=== PATIENT | female | born 1975 | race Hispanic/Latino ===

== ENCOUNTER 2020-10-28 13:25 | Emergency (ER) | payer OTHER ==
--- OUTSIDE RECORDS SUMMARY | 2020-10-28 13:31 | XMS REPORT | Continuity of Care Document ---
:1975 Author Organization [facility] t Address [address] [place] [address] Care Team Providers Name Role Phone Negin SHAH Primary Care Physician Albert SHAH Attending Clinician Jordy Camejo MDh Attending Clinician Bogdan SHAH LRebecca Attending Clinician Layo SHAH SRebecca Attending Clinician Andree Attending Clinician Unavailable Gustavo GO Attending Clinician Unavailable Mimi SHAH Attending Clinician Andrew BOWERS Attending Clinician Unavailable Josefina SHAH Attending Clinician José Miguel SHAH PRebecca Attending Clinician Susy Ruiz Attending Clinician Charles Arvizu MD Attending Clinician Carole Melendez MD Attending Clinician Unavailable Magaly Albrecht Attending Clinician Unavailable Annabel RN Attending Clinician Unavailable Emerson Esquivel MD Attending Clinician Oxana Wharton MD Attending Clinician Steven SHAH TRebecca Attending Clinician Harish Macedo MD Attending Clinician Hayley Lao MD Attending Clinician JESSICA Attending Clinician Unavailable DONALD LUZ Attending Clinician Unavailable GABRIELLA BERMUDEZ Attending Clinician Unavailable BASHIR Admitting Clinician Unavailable JOSEFINA Admitting Clinician Unavailable STEVEN Admitting Clinician Unavailable ZHENG Admitting Clinician Unavailable GABRIELLA BERMUDEZ Admitting Clinician Unavailable Payers Payer Name Policy Type Policy Effective Expiration Source Number Date Date [facility] [id number] 2019 [place] CHOICE/CHOICE 00:00:00 [facility] [id number] 2019-Prese ntHMO/PPO MEDICAREMEDICARE PART A [id number] 2018 [place] AND 7 00:00:00 [facility] [id number]/06/[place] [id number] 2018 [facility] [id number] 2017-Pre 7 00:00:00 - Medical sentMedicare Center UNITED HEALTHCARE - MGD [id number] 2018 [facility] CAREUNITED HMO POS 00:00:00 - [facility] [id number] 2018- PresentHMO/POS COVID VACCINE ADMIN / [id number] 2020-07-03 [facility] TESTINGCOVID VACCINE 00:00:00 - [place] / Center [id number]/07/2020- Present Problems Condition Condition Condition Status Onset Resolution Last Treating Co mments Source Name Details Category Date Date Treatment Clinician Date Anemia Anemia Disease Active Gerry 5-27 [facility]i 00:00: st 00 ESRD (end ESRD (end Disease Active Cindi ston stage stage 4-23 [facility]i renal renal 00:00: st disease) disease) 00 Diabetic Diabetic Disease Active 2019-06 [place] gastropare gastropare 2-31 Me thodi sis sis 00:00: st 00 Abdominal Abdominal Disease Active 2019-06 Cindi ston pain pain 2-30 Methodi 00:00: st 00 PD PD Disease Active 2019-06 Garrett catheter catheter 2-29 Method i dysfunctio dysfunctio 00:00: st n, initial n, initial 00 encounter encounter UTI due to UTI due to Disease Active 2019-06 zhou Klebsiella Klebsiella 2- Me [facility] species species 00:00: st Uncontroll Uncontroll Disease Active 2019-06 H [place] ed type 1 ed type 1 2-23 Meth naomi diabetes diabetes 00:00: st mellitus mellitus 00 with with diabetic diabetic nephropath nephropath y, with y, with long-term long-term current current use of use of insulin insulin Acute Acute Disease Active 2019-06 [place] cystitis cystitis 2-22 Method i without without 00:00: st hematuria hematuria 00 Insulin Insulin Disease Active [place] pump pump 06-28 [facility] status status 00:00: st 00 Vitamin D Vitamin D Disease Active Cindi farahn deficiency deficiency 06-28 Me odi 00:00: st 00 Obesity Obesity Disease Active [facility] (BMI (BMI 1-28 Methodi 30.0-34.9) 30.0-34.9) 00:00: st 00 ESRD on ESRD on Disease Active [place] peritoneal peritoneal 06-28 [place] dialysis dialysis 00:00: st 00 Pyelonephr Pyelonephr Disease Active H zhou itis itis 1-27 Methodi 00:00: st 00 Peritoniti Peritoniti Disease Active 2018-06 H zhou s s 1-03 Method[facility] 00:00: st 00 Glaucoma Glaucoma Disease Active Overview: [facility] 8-26 [facility] 00:00: g of this 00 note might be different from the original. Added automatic ally from request for surgery [id number] Vitreous Vitreous Disease Active Overview: [facility] hemorrhage hemorrhage 8-19 [facility] , right , right 00:00: g of this eye eye 00 note might be different from the original. Added automatic ally from request for surgery [id number] Anemia of Anemia of Disease Active Cnidi ston chronic chronic 4-30 [facility] renal renal 00:00: st failure, failure, 00 stage 5 stage 5 Acute Acute Disease Active [place] diastolic diastolic 4-27 Meth naomi (congestiv (congestiv 00:00: st e) heart e) heart 00 failure failure Essential Essential Disease Active Cindi kaufman hypertensi hypertensi 4-27 Me thodi on on 00:00: st 00 Controlled Controlled Disease Active [place] type 1 type 1 4-27 [facility] diabetes diabetes 00:00: st mellitus mellitus 00 with with diabetic diabetic nephropath nephropath y, with y, with long-term long-term current current use of use of insulin insulin Localized Localized Disease Active Cindi ston edema due edema due 4-25 Meth naomi to fluid to fluid 00:00: st overload overload 00 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-14 He alth of right of right 00:00: eye, eye, 00 severe severe stage stage Type 2 Type 2 Disease Active Melendez diabetes diabetes 3-14 Health mellitus mellitus 00:00: with with 00 ophthalmic ophthalmic complicati complicati on on Patient on Patient on Disease Active H arris peritoneal peritoneal 3-14 [facility] dialysis dialysis 00:00: 00 Lower Lower Disease Active [place] abdominal abdominal 1-18 Meth naomi pain pain 00:00: st 00 Shortness Shortness Disease Active 2017-06 Cindi ston of breath of breath 2-26 Meth naomi 00:00: st 00 Pre-transp Pre-transp Disease Active 2017-[address] lant lant 1-27 [facility] evaluation [facility]: Me dical for for 00 Center chronic chronic kidney kidney disease disease HTN HTN Disease Active [facility] (hypertens (hypertens 02-17 [facility] - ion) ion) 00:00: Medical 00 Center Diabetes Diabetes Disease [facility] mellitus mellitus 02-17 [facility] Anemia Anemia Disease Active [facility] 02[facility]17 [facility] Center ESRD (end ESRD (end Disease Active [facility] stage stage 9-18 [facility] renal renal 00:00: Medical disease) disease) 00 Center SBP SBP Disease Resolve 2018-062020-09-29 2020-09-29 [place] (spontaneo (spontaneo d 0-15 00:00:00 12:44:08 Methodi us us 00:00: st bacterial bacterial 00 peritoniti peritoniti s) s) Allergies, Adverse Reactions, Alerts This patient has no known allergies or adverse reactions. Family History Family Member Diagnosis Comments Start Date Stop Date Source Natural brother Diabetes type I [facility] Natural brother Kidney failure [facility] S t [facility] Natural father Diabetes [facility] Natural father Kidney failure [facility] Natural father Diabetes [facility] Natural father Heart disease Gerry Nicholson Natural father Hypertension Gerry Nicholson Natural mother Diabetes [facility] Natural son No Known Problem [facility] Social History Social Habit Start Date Stop Date Quantity Comments Source History SDOH [place] [facility] Alcohol Std Drinks History SDOH [place] Alcohol Binge Exposure to Not sure [place] Metho dist SARS-CoV-2 (event) Tobacco use and 2020-10-25 2020-10-25 Never used Garrett John ethodist exposure 00:00:00 00:00:00 Alcohol intake 2020-10-25 2020-10-25 Current [place] thodist 00:00:00 00:00:00 non-drinker of alcohol (finding) History SDOH 2020-05-30 2020-05-30 1 [place] [facility] Alcohol Frequency 00:00:00 00:00:00 [birth year] Gerry Lopez ethodist 00:00:00 00:00:00 Smoking Status Start Date Stop Date Source Never smoker [facility] Kenis t Medications Ordered Filled Start Stop Current Ordering Indication Dosage Frequency Signature Comments Components Source Medication Medication Date Date Medication? Clinician (SIG) Name Name ALPRAZolam Yes .25mg QD Take 0.25 [place] (XANAX) 5-29 mg by Methodi 0.25 MG 15:19: mouth st tablet 52 nightly as needed for anxiety. calcium Yes 1334mg Q.[id number] Take 1,334 Garrett acetate,simin 5-29 [id number] mg by M ethodi sphat bind, 15:19: 3D mouth 3 st (PHOSLO) 52 (three) 667 mg times a capsule day with meals. calcium Yes 667mg Take 667 [place] acetate,simin 5-29 mg by Methodi sphat bind, 15:19: mouth with st (PHOSLO) 52 snacks. 667 mg capsule traMADoL Yes acute pain 50mg Q6H Take 50 mg Garrett (ULTRAM) 50 5-29 by mouth Meth naomi mg tablet 15:19: every 6 st 52 (six) hours as needed for moderate pain .acute pain. (per [place] [facility], last filled 09/29/20, quantity: 14, day supply: 7) LORAZepam 0 Yes .5mg Q8H Take 0.5 [place] (ATIVAN) 5-29 mg by Methodi 0.5 MG 15:19: mouth st tablet 52 every 8 (eight) hours as needed for anxiety. Days of Dialysis (per [place] [facility], last filled 09/29/20, quantity: 20, day supply: 7) polyethylen Yes 17g QD Take 17 g [place] e glycol 5-29 by mouth Methodi (MIRALAX) 15:19: daily. st 17 gram 52 packet calcitrioL Yes .5ug QD Take 0.5 Cindi ston (ROCALTROL) 5-29 mcg by Method i 0.5 MCG 15:19: mouth st capsule 52 daily. clonIDINE Yes .1mg Take 0.1 [place] (CATAPRES) 5-29 mg by Methodi 0.1 MG 15:19: mouth as st tablet 52 needed (ONLY for SBP > 170). ondansetron 0 Yes 4mg Q8H Take 4 mg [place] ODT 5-29 by mouth Methodi (ZOFRAN-ODT 15:19: every 8 st ) 4 MG 52 (eight) disintegrat hours as ing tablet needed for nausea or vomiting. folic Yes 1{tbl} QD Take 1 Garrett acid/vit B 5-29 tablet by Meth naomi complex and 15:19: mouth st C 52 every (DIALYVITE morning. 800 ORAL) gentamicin Yes 1{appli QD Apply 1 [place] (GARAMYCIN) 5-29 cation} applicatio Methodi 0.1 % cream 15:19: n st 52 topically daily. For catheter insulin Yes Inject Garrett lispro 5-29 under the Methodi (INSULIN 15:19: skin st PUMP) 100 52 continuous unit/mL ly. Humalog insulin (Avogytronic )Active Insulin PUMP docusate Yes 100mg QD Take 100 [place] sodium 5-29 mg by Methodi (COLACE) 15:19: mouth st 100 MG 52 daily. capsule ergocalcife Yes [id number] Q7D Take [place] rol 5-29 50,000 [facility] (VITAMIN 15:19: Units by st D2) 50,000 52 mouth once unit a week. capsule Take on Mondays gabapentin Yes 100mg QD Take 100 [place] (NEURONTIN) 5-29 mg by Methodi 100 mg 15:19: mouth st capsule 52 nightly as needed (for pain). NIFEdipine 2020- No 30mg Q.5D Take 30 mg Garrett XL 09-29 by mouth 2 [facility]i (PROCARDIA 14:39: 00:00 (two) st XL) 30 MG 00 :00 times a 24 hr day as tablet needed (ONLY if SBP >150-160mm Hg). torsemide 2020- No 100mg QD Take 100 [place] (DEMADEX) 09-29 mg by Methodi 100 MG 14:39: 00:[address] tablet 00 :00 every morning. ondansetron 2020- No 4mg Q8H Take 1 Cindi ston ODT 09-2928 tablet (4 [facility] (ZOFRAN-ODT 00:00: 00:00 mg total) st ) 4 MG 00 :00 by mouth disintegrat every 8 ing tablet (eight) hours as needed for nausea or vomiting for up to 30 days. traMADoL 2020- acute pain 25mg Q6H Take 0.5 Garrett (ULTRAM) 50 09-29 tablets Meth naomi mg tablet 00:00: 23:59 ([address] 00 :00 total) by mouth every 6 (six) hours as needed for severe pain for up to 10 days .acute pain. LORAZepam 2020- No .5mg Q8H Take 1 [place] (Ativan) 09-29 tablet Methodi 0.5 MG 00:00: 23:59 (0.[address] tablet 00 :00 total) by mouth every 8 (eight) hours as needed for anxiety for up to 10 days. minocycline 2020- No 100mg Q12H Take 1 [place] (MINOCIN) 5-01 05-07 capsule Method i 100 MG 00:00: 23:59 ([address] capsule 00 :00 total) by mouth every 12 (twelve) hours for 6 days. rOPINIRole No .25mg Q.[id number] Take 1 Garrett (Requip) 09-29 [id number] tablet Me thodi 0.25 MG 00:00: 00:00 3D (0.[address] tablet 00 :00 total) by mouth 3 (three) times a day for 30 days. latanoprost 2020- No 1[drp] QD Administer Garrett (XALATAN) 09-19 1 drop to Meth naomi 0.005 % 11:22: 00:[address] ophthalmic 05 :00 eye solution nightly. fluticasone No 100ug QD 2 sprays [place] propionate 06-07 (100 mcg Meth naomi (FLONASE) 00:00: 23:59 total) by st 50 00 :00 Each Nare mcg/actuati route on nasal daily for spray 30 days. pantoprazol No 40mg QD Take 1 Cindi ston e 06-07 tablet (40 Methodi (PROTONIX) 00:00: 23:59 mg total) s t 40 MG EC 00 :00 by mouth tablet daily for 30 days. polyethylen No 17g Q.5D Take 17 g Garrett e glycol 06-06 by mouth 2 Meth naomi (MIRALAX) 16:05: 00:00 (two) st 17 gram 13 :00 times a packet day. metoclopram 2020- No 10mg Q.5D Take 10 mg Garrett jhonny 06-06 by mouth 2 Methodi (REGLAN) 10 16:05: 00:00 (two) st MG tablet 13 :00 times a day. metoclopram 2020- No 10mg Q.[id number] Take 1 Garrett jhonny 06-06 [id number] tablet (10 Me thodi (REGLAN) 10 00:00: 23:59 3D mg total) st MG tablet 00 :00 by mouth 3 (three) times a day before meals for 30 days. polyethylen No 17g Q24H Take 17 g Garrett e glycol 06-06 by mouth Method i (MIRALAX) 00:00: 23:[address] 17 gram 00 :00 needed for packet constipati on for up to 30 days. hydrocortis 2020- No Q.5D Apply [place] one 0.5 % 06-06 topically Meth naomi cream 00:00: 23:59 2 (two) st 00 :00 times a day for 30 days. simethicone No 80mg Q6H Chew 1 Cindi ston (MYLICON) 06-06 tablet (80 Met hodi 80 MG 00:00: 23:59 mg total) st chewable 00 :00 every 6 tablet (six) hours as needed for flatulence for up to 30 days. ferric 2019-06 No 210mg Take 210 [place] citrate 2-30 12-30 mg by Methodi (Auryxia) 10:41: 00:00 mouth with s t 210 mg iron 44 :00 snacks. tablet ferric 2019-06 No 420mg Q.[id number] Take 420 Garrett citrate 2-30 12-30 [id number] mg by Meth naomi (AURYXIA) 10:41: 00:[address] 210 mg iron 37 :00 (three) tablet times a day with meals. ciprofloxac 2019-06 500mg QD Take 500 Garrtet in (CIPRO) 2- 01-06 mg by Methodi 500 MG 00:00: 00:[address] tablet 00 :00 daily. For 6 days Starting 05/26/20-0 06/01/20 ciprofloxac 2019-06 No 500mg QD Take 1 [place] in (CIPRO) 2-26 12-30 tablet Method i 500 MG 00:00: 00:00 ([address] tablet 00 :00 total) by mouth daily for 6 days. bimatoprost 2019-06 1[drp] QD Administer Garrett (LUMIGAN) 2-25 12-25 1 drop to Meth naomi 0.01 % 13:47: 00:[address] ophthalmic 02 :00 nightly. drops dorzolamide 2020-1 2020- No 1[drp] Q.5D Administer Garrett (TRUSOPT) 2 07-26 1 drop to Me thodi % 13:47: 00:[address] ophthalmic 02 :00 2 (two) solution times a day. polyethylen 2019- 2020- No 17g Q24H Take 17 g Garrett e glycol 07-26 by mouth Method i (MIRALAX) 12:04: 00:[address] 17 gram 46 :00 needed for packet constipati on. atropine 1 2019-06 2020- No 1[drp] Q.5D Administer Garrett % 07-26- 1 drop Methodi ophthalmic 12:04: 00:[address] solution 44 :00 left eye 2 (two) times a day as needed (for pain). brimonidine 2019-06 2020- No 1[drp] Q.[id number] Administer Garrett (ALPHAGAN) 07-26- [id number] 1 drop to Methodi 0.15 % 12:04: 00:[address] ophthalmic 44 :00 eye 3 solution (three) times a day. dorzolamide 2019-06 2020- No 1[drp] Q.5D Administer Garrett -timolol, 07-26 1 drop to Meth naomi PF, 2-0.5 % 12:04: 00:[address] drops 44 :00 eye 2 (two) times a day. latanoprost 2019-06- No 1[drp] QD Administer Garrett (XALATAN) 07-26- 1 drop to Meth naomi 0.005 % 12:04: 00:[address] ophthalmic 44 :00 eye solution nightly. prednisoLON 2019- 2020- No 1[drp] Q.25D Administer Garrett E acetate 07-26- 1 drop Methodi (PRED 12:04: 00:[address] FORTE) 1 % 44 :00 left eye 4 ophthalmic (four) suspension times a day as needed (for pain). calcium 2019- 2020- No 1334mg Q.[id number] Take 1,334 Garrett acetate 07-26- [id number] mg by Meth naomi (PHOSLO) 12:04: 00:[address] 667 mg 44 :00 (three) capsule times a day with meals. atropine 1 2019-06- No 1[drp] Q.5D Administer Garrett % 07-26 1 drop Methodi ophthalmic 00:00: 23:[address] solution 00 :00 left eye 2 (two) times a day as needed (for pain) for up to 30 days. brimonidine 2019-06 No 1[drp] Q.[id number] Administer Garrett (ALPHAGAN) 07-26 [id number] 1 drop to Methodi 0.15 % 00:00: 23:[address] ophthalmic 00 :00 eye 3 solution (three) times a day for 30 days. dorzolamide 2019-06 No 1[drp] Q.5D Administer Garrett -timolol, 07-26 1 drop to Meth naomi PF, 2-0.5 % 00:00: 23:[address] drops 00 :00 eye 2 (two) times a day for 30 days. prednisoLON 2019-06 No 1[drp] Q.25D Administer Garrett E acetate 07-26 1 drop Methodi (PRED 00:00: 23:[address] FORTE) 1 % 00 :00 left eye 4 ophthalmic (four) suspension times a day as needed (for pain) for up to 30 days. calcium 2019-06- No 1334mg Q.[id number] Take 2 Garrett acetate,simin 07-26- [id number] capsules Methodi sphat bind, 00:00: 00:00 3D (1,[address] (PHOSLO) 00 :00 total) by 667 mg mouth 3 capsule (three) times a day with meals for 30 days. latanoprost 2019-06- No 1[drp] QD Administer Garrett (XALATAN) 07-26- 1 drop to Meth naomi 0.005 % 00:00: 00:[address] ophthalmic 00 :00 eye solution nightly for 30 days. polyethylen 2019-06 2020- No 17g QD Take 17 g Garrett e glycol 07-26-30 by mouth Method i (MIRALAX) 00:00: 00:[address] 17 gram 00 :00 packet torsemide 2018-06 Yes 100mg QD Take 100 [place] ris 100 mg 0-10 mg by Health tablet 15:26: mouth 06 daily. calcitriol 2019- Yes .25ug QD Take 0.25 H [facility]is (ROCALTROL) 0-10 mcg by Health 0.25 mcg 15:26: mouth capsule 06 daily. bimatoprost 2018-06 Yes Neovascular 1[drp] Instill 1 [place] (LUMIGAN) 0-10 glaucoma, Drop in He alth 0.01 % 00:00: severe right eye ophthalmic 00 stage, at bedtime solution right nightly. brimonidine 2018-06 Yes Neovascular 1[drp] Instill 1 [place] (ALPHAGAN 0-10 glaucoma, Drop in He alth P) 0.15 % 00:00: severe right eye ophthalmic 00 stage, 3 times solution right daily. dorzolamide 2018-06 Yes Neovascular 1[drp] Q.5D Instill 1 [place] -timolol 0-10 glaucoma, Drop in Hea lth (COSOPT) 00:00: severe right eye 22.3-6.8 00 stage, 2 times mg/mL right daily. ophthalmic solution atropine Yes Neovascular 1[drp] Instill 1 [place] (ISOPTO 8-26 glaucoma, Drop in Heal th ATROPINE) 1 00:00: severe left eye 2 % 00 stage, times ophthalmic right daily as solution needed for Pain. prednisoLON Yes Neovascular 1[drp] Instill 1 [place] E acetate 8-26 glaucoma, Drop in He alth (PRED 00:00: severe left eye 4 FORTE) 1 % 00 stage, times ophthalmic right daily as suspension needed for Pain. latanoprost Yes Neovascular 1[drp] Instill 1 [place] (XALATAN) 8-19 glaucoma, Drop in He alth 0.005 % 00:00: severe right eye ophthalmic 00 stage, at bedtime solution right nightly. brimonidine Yes Neovascular 1[drp] Instill 1 [place] -timolol 7-29 glaucoma, Drop in Hea lth (COMBIGAN) 00:00: severe each eye 0.2-0.5 % 00 stage, every 12 ophthalmic right hours. solution brinzolamid Yes Neovascular 1[drp] Q.5D Instill 1 Al [place] (AZOPT) 1 7-29 glaucoma, Drop in Health % 00:00: severe right eye ophthalmic 00 stage, 2 times suspension right daily. INSULIN Yes Inject [facility] PUMP 3-27 subcutaneo [facility] CARTRIDGE 14:08: usly. Medical SUBQ 02 [place] ferric Yes 420mg Q.[id number] Take [address] citrate 3-27 [id number] mg by [facility] - (AURYXIA) 14:08: 3D mouth 3 Medic al 210 mg iron 02 (three) Cente r Tab times daily After meals . torsemide Yes 100mg QD Take [address] (DEMADEX) 3-27 mg by [facility] - 100 MG 14:08: mouth Medical tablet 02 daily. [place] NIFEdipine Yes 30mg Q.5D Take [address] (PROCARDIA- 3-27 by mouth 2 [facility] - XL) 60 MG 14:08: (two) Medical (OSM) 24 hr 02 times Center tablet daily . calcitriol Yes .25ug QD Take 0.[address] (ROCALTROL) 3-27 mcg by [facility] - 0.25 MCG 14:08: mouth Medical capsule 02 daily. [place] folic Yes 1{tbl} QD Take [address] acid/vit B 3-27 tablet by Luke s - complex and 14:08: mouth Medic al C 02 daily. [place] (BEENA-ORALIA ORAL) lisinopril Yes 10mg QD Take [address] (PRINIVIL,Z 3-27 by mouth Luke s - ESTRIL) 10 14:08: daily . Medi penny MG tablet 02 [place] loratadine Yes 10mg QD Take 10 mg H arris (CLARITIN) 3-25 by mouth Healt h 10 mg 15:58: daily. tablet 58 ferric Yes Take by [place] citrate 3-25 mouth. Health (AURYXIA) 15:58: 210 mg iron 58 Tab metOLazone Yes 5mg QD Take 5 mg Lee rris (ZAROXOLYN) 3-25 by mouth Heal th 5 mg tablet 15:58: daily. 58 NIFEDIPINE Yes 30mg QD Take 30 mg H [facility] CR 30 mg 24 3-25 by mouth Heal th hr delayed 15:58: daily. released 58 tablet Immunizations Ordered Immunization Filled Immunization Date Status Commen ts Source Name Name Covid-19 Vaccine 2020-07-[address] [facility] (Pf[employer]) PFIZER COVID-19 MRNA 2020-07-20 Completed [place] VACCINATION 00:00:00 [facility] Covid-19 Vaccine 2020-07-[address] [facility] - [facility] (Pf) 00:00:00 [facility] ([facility]/[employer]) PFIZER COVID-19 MRNA 2020-07-03 Completed [place] VACCINATION 00:00:00 [facility] Vital Signs Vital Name Observation Time Observation Value Comments Source Systolic blood 2020-10-27 11:57:11 136 mm[Hg] [facility] [facility] pressure Diastolic blood 2020-10-27 11:57:11 63 mm[Hg] [place] [facility] pressure Heart rate 2020-10-27 11:57:11 95 /min Gerry Nicholson Body temperature 2020-10-27 11:57:11 36.61 Latoya Cici Nicholson Oxygen saturation in 2020-10-27 11:57:11 97 /min Gerry Nicholson Arterial blood by Pulse oximetry Respiratory rate 2020-10-27 11:40:00 14 /min Cici Nicholson Body height 2020-10-25 18:37:00 152.4 cm Gerry Nicholson Body weight 2020-10-25 18:37:00 75.751 kg Gerry Nicholson BMI 2020-10-25 18:37:00 32.61 kg/m2 Gerry Nicholson Procedures Procedure Date / Time Performing Clinician Source Performed POC GLUCOSE 2020-10-27 12:00:00 Fallon Vasques Meth odist POC GLUCOSE 2020-10-27 10:21:00 Fallon Vasques Meth odist POC GLUCOSE 2020-10-27 08:30:00 Fallon Vasques Meth odist HEPATITIS B SURFACE 2020-10-27 07:38:00 Trevor Jacobo ANTIGEN HC COMPLETE BLD COUNT 2020-10-27 04:27:00 Gomez Camejo W/AUTO DIFF PROTHROMBIN TIME WITH INR 2020-10-27 04:27:00 Gomez Camejo PARTIAL THROMBOPLASTIN 2020-10-27 04:27:00 Gomez Camejo [place] [facility] TIME (PTT) BASIC METABOLIC PANEL 2020-10-27 04:27:00 Bashir Gomez Sena [place] [facility] ESTIMATED GFR 2020-10-27 04:27:00 Bashir Gomez Sena Garrett Met hodist POC GLUCOSE 2020-10-27 00:36:00 Fallon Vasques DurgaRebecca Garrett Meth odist POC GLUCOSE 2020-10-26 17:00:00 Fallon Vasques Meth odist HEMODIALYSIS 2020-10-26 15:40:42 Trevor Jacobo Met hodist COMPREHENSIVE METABOLIC 2020-10-26 12:49:00 Fallon Vasques [facility] PANEL HC COMPLETE BLD COUNT 2020-10-26 12:49:00 Fallon Vasques n [facility] W/AUTO DIFF ESTIMATED GFR 2020-10-26 12:49:00 Fallon Vasques Meth odist POC GLUCOSE 2020-10-26 12:46:00 Fallon Vasques Meth odist POC GLUCOSE 2020-10-26 10:49:00 Fallon Vasques DurgaRebecca Garrett Meth odist POC GLUCOSE 2020-10-26 09:08:00 Fallon Vasques DurgaRebecca Garrett Meth odist POC GLUCOSE 2020-10-26 05:06:00 Julio Mcfadden Meth odist VITAMIN B12 LEVEL 2020-10-26 01:42:00 Bashir Gomez Sena Garrett M ethodist FOLATE LEVEL 2020-10-26 01:42:00 Bashir Gomez Sena Garrett Met hodist TOTAL IRON BINDING 2020-10-26 01:42:00 Bashir Gomez Sena Gerry [facility] CAPACITY FERRITIN LEVEL 2020-10-26 01:42:00 Bashir Gomez Sena Garrett Met hodist POC GLUCOSE 2020-10-26 01:06:00 Bashir Gomez Sena Garrett Met hodist POC GLUCOSE 2020-10-25 23:23:00 Bashir Gomez Garrett Met hodist COVID-19 QUALITATIVE PCR 2020-10-25 20:35:00 Ozzie Price [facility] TYPE AND SCREEN 2020-10-25 20:30:00 Ozzie Price Met hodist COMPREHENSIVE METABOLIC 2020-10-25 20:30:00 Ozzie Price [facility] PANEL HC COMPLETE BLD COUNT 2020-10-25 20:30:00 Ozzie Price on Spiritism W/AUTO DIFF PROTHROMBIN TIME WITH INR 2020-10-25 20:30:00 Ozzie Price [facility] PARTIAL THROMBOPLASTIN 2020-10-25 20:30:00 Ozzie Price [facility] TIME (PTT) ESTIMATED GFR 2020-10-25 20:30:00 Ozzie Price Met hodist PREPARE RBC 2020-10-25 20:30:00 Ozzie Price Met hodist ECG 12-LEAD 2020-10-25 18:47:08 Carlos Alberto Colmenaresoc-Jaky Garrett [facility] US VEIN MAPPING UPPER 2020-10-16 15:59:04 Rashawn Garcia [facility] EXTREMITY BILATERAL DURABLE MEDICAL EQUIPMENT 2020-09-29 18:35:46 Deepak Esquivel [facility] POC GLUCOSE 2020-09-29 08:17:00 Deepak Esquivel [facility] BASIC METABOLIC PANEL 2020-09-29 06:55:00 Trevor Jacobo [facility] HC COMPLETE BLD COUNT 2020-09-29 06:55:00 [facility] W/AUTO DIFF ESTIMATED GFR 2020-09-29 06:55:00 Trevor Jacobo [facility] POC GLUCOSE 2020-09-29 01:22:00 Deepak Esquivel [facility] POC GLUCOSE 2020-09-28 23:20:00 Deepak Esquivel [facility] POC GLUCOSE 2020-09-28 17:46:00 Deepak Esquivel [facility] HEMODIALYSIS 2020-09-28 13:34:34 Trevor Jacobo [facility] POC GLUCOSE 2020-09-28 12:26:00 Deepak Esquivel [facility] TRANSFUSE RED BLOOD CELLS 2020-09-28 10:49:52 Deepak Esquivel [facility] HC COMPLETE BLD COUNT 2020-09-28 08:10:00 Deepak [facility] W/AUTO DIFF SMEAR REVIEW 2020-09-28 08:10:00 Deepak Esquivel [facility] POC GLUCOSE 2020-09-28 08:10:00 Deepak Esquivel [facility] POC GLUCOSE 2020-09-28 04:48:00 Deepak Esquivel [facility] BASIC METABOLIC PANEL 2020-09-28 04:00:00 Deepak Esquivel [facility] ESTIMATED GFR 2020-09-28 04:00:00 Deepak Esquivel [facility] POC GLUCOSE 2020-09-28 02:02:00 Deepak Esquivel [facility] POC GLUCOSE 2020-09-27 20:51:00 Deepak Esquivel [facility] POC GLUCOSE 2020-09-27 16:11:00 Deepak Esquivel [facility] HEMODIALYSIS 2020-09-27 11:47:29 Trevor Jacobo [facility] POC GLUCOSE 2020-09-27 11:11:00 Deepak Esquivel [facility] POC GLUCOSE 2020-09-27 07:12:00 Deepak Esquivel [facility] POC GLUCOSE 2020-09-27 04:07:00 Deepak Esquivel [facility] POC GLUCOSE 2020-09-26 22:01:00 Deepak Esquivel [facility] POC GLUCOSE 2020-09-26 18:00:00 Deepak Esquivel [facility] POC GLUCOSE 2020-09-26 14:22:00 Deepak Esquivel [facility] BASIC METABOLIC PANEL 2020-09-26 14:15:00 Deepak [facility] HC COMPLETE BLD COUNT 2020-09-26 14:15:00 Deepak [facility] W/AUTO DIFF ESTIMATED GFR 2020-09-26 14:15:00 Deepak Esquivel [facility] HEPATITIS B SURFACE 2020-09-26 14:15:00 Trevor Jacobo ANTIBODY HEPATITIS C ANTIBODY 2020-09-26 14:15:00 Trevor Jacobo HEPATITIS B CORE ANTIBODY 2020-09-26 14:15:00 Trevor Jacoboist TOTAL HEMODIALYSIS 2020-09-26 12:24:39 Trevor Jacobo [facility] POC GLUCOSE 2020-09-26 12:13:00 Deepak Esquivel [facility] XR CHEST 1 VW PORTABLE 2020-09-26 11:14:00 Deepak Esquivelist POC GLUCOSE 2020-09-26 08:40:00 Deepak Esquivel [facility] POC GLUCOSE 2020-09-26 06:04:00 Deepak Esquivel [facility] POC GLUCOSE 2020-09-26 02:07:00 Deepak Esquivel [facility] POC GLUCOSE 2020-09-25 21:32:00 Deepak Esquivel [facility] POC GLUCOSE 2020-09-25 19:08:00 Deepak Esquivel [facility] HEMODIALYSIS 2020-09-25 16:34:21 Trevor Jacobo [facility] POC GLUCOSE 2020-09-25 13:55:00 Deepak Esquivel [facility] CATH TIP CULTURE 2020-09-25 13:15:00 Rashawn Garcia [facility] REMOVAL, TUNNELED CENTRAL 2020-09-25 12:05:00 Rashawn Garcia VENOUS CATHETER WITH PORT, WITH C-ARM FLUOROSCOPIC GUIDANCE INSERTION, CATHETER, 2020-09-25 12:05:00 Rashawn Garcia CENTRAL VENOUS, TUNNELED, FOR HEMODIALYSIS POC GLUCOSE 2020-09-25 11:35:00 Deepak Esquivel [facility] POC GLUCOSE 2020-09-25 09:51:00 Deepak Esquivel [facility] POC GLUCOSE 2020-09-25 08:10:00 Deepak Esquivel [facility] TYPE AND SCREEN 2020-09-25 00:30:00 Karsten Garcia BASIC METABOLIC PANEL 2020-09-25 00:30:00 Shayna Nolan Karstendolroes hansen [facility] HC COMPLETE BLD COUNT 2020-09-25 00:30:00 Shayna Karsten Francisco [facility]ism W/AUTO DIFF [facility] PROTHROMBIN TIME WITH INR 2020-09-25 00:30:00 Heriberto Garcia [place] PARTIAL THROMBOPLASTIN 2020-09-25 00:30:00 Shayna Karsten Francisco [facility] TIME (PTT) [place] ESTIMATED GFR 2020-09-25 00:30:00 Karsten Garcia [place] PREPARE RBC 2020-09-25 00:30:00 Deepak Esquivel [facility] POC GLUCOSE 2020-09-24 22:58:00 Deepak Esquivel [facility] POC GLUCOSE 2020-09-24 17:00:00 Deepak Esquivel [facility] POC GLUCOSE 2020-09-24 14:05:00 Deepak Esquivel [facility] POC GLUCOSE 2020-09-24 08:51:00 Deepak Esquivel [facility] BASIC METABOLIC PANEL 2020-09-24 05:14:00 Deepak [facility] HC COMPLETE BLD COUNT 2020-09-24 05:14:00 Deepak Esquivel [facility] W/AUTO DIFF ESTIMATED GFR 2020-09-24 05:14:00 Deepak Esquivel [facility] POC GLUCOSE 2020-09-23 20:30:00 Deepak Esquivel [facility] POC GLUCOSE 2020-09-23 12:10:00 Deepak Esquivel [facility] POC GLUCOSE 2020-09-23 08:54:00 Deepak Esquivel [facility] BASIC METABOLIC PANEL 2020-09-23 06:16:00 Deepak [facility] HC COMPLETE BLD COUNT 2020-09-23 06:16:00 Deepak Es[facility] W/AUTO DIFF ESTIMATED GFR 2020-09-23 06:16:00 Deepak Esquivel [facility] POC GLUCOSE 2020-09-22 22:17:00 Deepak Esquivel [facility] POC GLUCOSE 2020-09-22 17:11:00 Deepak Esquivel [facility] POC GLUCOSE 2020-09-22 12:56:00 Esquivel, Deepak Garrett [facility] POC GLUCOSE 2020-09-22 08:33:00 Esquivel, Deepak Garrett [facility] POC GLUCOSE 2020-09-21 22:49:00 José Miguel, Deepak Garrett [facility] POC GLUCOSE 2020-09-21 18:00:00 Deepak Esquivel [facility] DURABLE MEDICAL EQUIPMENT 2020-09-21 14:33:28 [facility] POC GLUCOSE 2020-09-21 12:04:00 Deepak Esquivel [facility] POC GLUCOSE 2020-09-21 08:21:00 Deepak Esquivel [facility] VANCOMYCIN LEVEL, RANDOM 2020-09-21 04:34:00 Josh Downs Spiritism BASIC METABOLIC PANEL 2020-09-21 04:34:00 Deepak Es[facility] HC COMPLETE BLD COUNT 2020-09-21 04:34:00 Deepak Esquivel [facility] W/AUTO DIFF ESTIMATED GFR 2020-09-21 04:34:00 Deepak Esquivel [facility] POC GLUCOSE 2020-09-20 22:41:00 Deepak Esquivel [facility] POC GLUCOSE 2020-09-20 20:14:00 Deepak Esquivel [facility] URINE CULTURE 2020-09-20 16:30:00 Deepak Esquivel [facility] URINALYSIS SCREEN AND 2020-09-20 16:30:00 Deepak Esquivel [facility] MICROSCOPY, WITH REFLEX TO CULTURE POC GLUCOSE 2020-09-20 07:51:00 Deepak Esquivel [facility] HC COMPLETE BLD COUNT 2020-09-20 04:26:00 Isidro Rocha [facility] W/AUTO DIFF BASIC METABOLIC PANEL 2020-09-20 04:26:00 Isidro Rocha [facility] MAGNESIUM LEVEL 2020-09-20 04:26:00 Isidro Rocah [facility] ESTIMATED GFR 2020-09-20 04:26:00 Isidro Rocha [facility] POC GLUCOSE 2020-09-19 18:49:00 Deepak Esquivel [facility] POC GLUCOSE 2020-09-19 15:55:[address] [facility] [address] LUMBAR SPINE WO 2020-09-19 14:27:25 Isidro Rochaist CONTRAST HEPATITIS B SURFACE 2020-09-19 13:59:00 Trevor Jacoboist ANTIGEN POC GLUCOSE 2020-09-19 13:11:00 Deepak Esquivel [facility] FUNGUS CULTURE 2020-09-19 12:00:00 Sara Luz odist AEROBIC CULTURE 2020-09-19 12:00:00 Sara Luz Meth odist GRAM STAIN 2020-09-19 12:00:00 Sara Luz odist CELL COUNT AND 2020-09-19 12:00:00 Sara Luz Meth odist DIFFERENTIAL, BODY FLUID BODY FLUID CONSULT 2020-09-19 12:00:00 Sara Luz M ethodist POC GLUCOSE 2020-09-19 11:55:00 Deepak Esquivel [facility] POC GLUCOSE 2020-09-19 10:24:00 Deepak Esquivel [facility] HCG QUALITATIVE, SERUM 2020-09-19 10:15:00 Deepak Esquivel Spirit[facility] SCREEN POC GLUCOSE 2020-09-19 06:12:00 Deepak Esquivel [facility] LACTIC ACID LEVEL, SEPSIS 2020-09-19 00:17:00 Ismael Westist - NOW AND REPEAT 2X EVERY 3 HOURS BLOOD CULTURE, ANAEROBIC 2020-09-18 22:25:00 Deepak Esquivel POC GLUCOSE 2020-09-18 22:15:00 Isidro Rocha Met hodramsey LACTIC ACID LEVEL, SEPSIS 2020-09-18 21:43:00 Ismael West - NOW AND REPEAT 2X EVERY 3 HOURS COVID-19 QUALITATIVE PCR 2020-09-18 20:12:00 Ozzie Price BLOOD CULTURE, AEROBIC & 2020-09-18 19:38:00 Ismael West ANAEROBIC POC GLUCOSE 2020-09-18 19:34:00 Ozzie Price Met lázaro BLOOD CULTURE, AEROBIC & 2020-09-18 18:55:00 Ismael West ANAEROBIC HC COMPLETE BLD COUNT 2020-09-18 18:55:00 Ismael West W/AUTO DIFF COMPREHENSIVE METABOLIC 2020-09-18 18:55:00 Ismael West Spiritism PANEL LIPASE LEVEL 2020-09-18 18:55:00 Ismael West Me thodist LACTIC ACID LEVEL, SEPSIS 2020-09-18 18:55:00 Ismael West - NOW AND REPEAT 2X EVERY 3 HOURS ESTIMATED GFR 2020-09-18 18:55:00 Ismael West [facility] POC GLUCOSE 2020-06-06 10:02:00 Brigid Colmenares Me [facility]ist POC GLUCOSE 2020-06-05 21:52:00 Brigid Colmenares Me [facility]ist POC GLUCOSE 2020-06-05 18:13:00 Brigid Colmenares Me [facility] POC GLUCOSE 2020-06-05 13:22:00 Brigid Colmenares Me [facility] POC GLUCOSE 2020-06-05 08:51:00 Brigid Colmenares Me [facility] POC GLUCOSE 2020-06-05 05:51:00 Briigd Colmenares Me [facility]odist FUNGUS CULTURE 2020-06-04 23:20:00 Hazel, Will Camargo [place] [facility] [employer] CULTURE 2020-06-04 23:20:00 Will Oliva [facility] FUNGUS SMEAR 2020-06-04 23:20:00 Will Oliva [facility] [employer] STAIN 2020-06-04 23:20:00 Will Oliva [facility] BLOOD CULTURE, AEROBIC & 2020-06-04 23:20:00 Rhiannon Razo Spiritism ANAEROBIC CELL COUNT AND 2020-06-04 23:00:00 Will Oliva Garrett [facility] DIFFERENTIAL, BODY FLUID POC GLUCOSE 2020-06-04 17:13:00 Brigid Colmenares [facility] POC GLUCOSE 2020-06-04 12:51:00 Brigid Colmenares [facility] PHOSPHORUS LEVEL 2020-06-04 09:13:00 Sara Luz [facility] MAGNESIUM LEVEL 2020-06-04 09:13:00 Sara Luz Meth odist ESTIMATED GFR 2020-06-04 09:13:00 Sara Luz Meth odist COMPREHENSIVE METABOLIC 2020-06-04 09:13:00 Sara Luz Spirit[facility] PANEL POC GLUCOSE 2020-06-04 08:26:00 Brigid Colmenares [facility] POC GLUCOSE 2020-06-04 05:29:00 Brigid Colmenares [facility] COMPREHENSIVE METABOLIC 2020-06-04 05:28:00 Brigid Colmenares Spirit[facility] PANEL ESTIMATED GFR 2020-06-04 05:28:00 Brigid Colmenares Me [facility] HC COMPLETE BLD COUNT 2020-06-04 05:28:00 Brigid Colmenares Spiritism W/AUTO DIFF POC GLUCOSE 2020-06-03 23:20:00 Brigid Colmenares Me [facility] POC GLUCOSE 2020-06-03 17:04:00 Brigid Colmenares [facility] POC GLUCOSE 2020-06-03 12:37:00 ColmenaresBrigid morenoRebecca Garrett [facility] POC GLUCOSE 2020-06-03 09:42:00 ColmenaresBrigid moreno Me thodist POC GLUCOSE 2020-06-03 05:06:00 ColmenaresBrigid moreno Me thodist POC GLUCOSE 2020-06-02 23:19:00 Colmenares Brigid Chadwick Garrett [facility] POC GLUCOSE 2020-06-02 17:32:00 Colmenares Brigid Chadwick Garrett [facility] POC GLUCOSE 2020-06-02 12:07:00 ColmenaresBrigid moreno Garrett [facility] BLOOD CULTURE, AEROBIC & 2020-06-02 09:45:00 ColmenaresBrigid moreno Spiritism ANAEROBIC CELL COUNT AND 2020-06-02 09:45:00 Colmenares Brigid SharpeRebecca Garrett [facility] DIFFERENTIAL, BODY FLUID POC GLUCOSE 2020-06-02 08:21:00 Colmenares Brigid SharpeRebecca Garrett [facility] POC GLUCOSE 2020-06-02 04:24:00 Colmenares Brigid SharpeRebecca Garrett [facility] POC GLUCOSE 2020-06-01 19:13:00 Colmenares Brigid SharpeRebecca Garrett [facility] POC GLUCOSE 2020-06-01 13:10:00 Colmenares Brigid SharpeRebecca Garrett [facility] POC GLUCOSE 2020-06-01 09:27:00 Colmenares Brigid SharpeRebecca Garrett [facility]ist CBC WITH PLATELET AND 2020-06-01 05:00:00 Brigid Colmenares Spiritism DIFFERENTIAL MANUAL DIFFERENTIAL 2020-06-01 05:00:00 Brigid Colmenares n Spiritism IONIZED CALCIUM 2020-06-01 04:00:00 ColmenaresBrigid cote AnnemarieRebecca Garrett [facility]ist COMPREHENSIVE METABOLIC 2020-06-01 04:00:00 Brigid Colmenares Spiritism PANEL ESTIMATED GFR 2020-06-01 04:00:00 Brigid Colmenares AnnemarieRebecca Garrett [facility] POC GLUCOSE 2020-05-31 18:37:00 ColmenaresBrigid moreno Me thodist POC GLUCOSE 2020-05-31 11:34:00 Brigid Colmenares Me thodist HEMOGLOBIN A1C 2020-05-31 04:00:00 Ro Wharton on Spiritism POC GLUCOSE 2020-05-30 21:23:00 ColmenaresBrigid cote Me thodist POC GLUCOSE 2020-05-30 11:48:00 Brigid Colmenares Me thodist BLOOD CULTURE, AEROBIC & 2020-05-30 10:30:00 ColmenaresBrigid cote [place] [facility] ANAEROBIC FUNGUS CULTURE 2020-05-30 10:21:00 Sara Luz Meth odist FUNGUS SMEAR 2020-05-30 10:21:00 Sara Luz Meth odist CELL COUNT AND 2020-05-30 10:21:00 Sara Luz odist DIFFERENTIAL, BODY FLUID BODY FLUID CONSULT 2020-05-30 10:21:00 Sara Luz M ethodist POC GLUCOSE 2020-05-30 07:45:00 ColmenaresBrigid cote Me thodist HC COMPLETE BLD COUNT 2020-05-30 06:25:00 Ro Wharton W/AUTO DIFF XR ABDOMEN 1 VW PORTABLE 2020-05-30 06:24:05 Ro Wharton BASIC METABOLIC PANEL 2020-05-30 04:00:00 Ro Wharton ESTIMATED GFR 2020-05-30 04:00:00 Ro Wharton [facility] POC GLUCOSE 2020-05-29 23:46:00 Ro Wharton [facility] COVID-19 QUALITATIVE PCR 2020-05-29 22:36:00 Kesha Esquivel [facility] ABDOMEN PELVIS WO 2020-05-29 22:27:44 Kesha Esquivel CONTRAST [facility] URINE CULTURE 2020-05-29 22:17:00 Kesha Esquivel Meth odist [facility] URINALYSIS SCREEN AND 2020-05-29 21:54:00 Kesha Esquivel Spiritism MICROSCOPY, WITH REFLEX [facility] TO CULTURE ECG 12-LEAD 2020-05-29 20:40:15 Kesha Esquivel Meth odist [facility] ECG ED PRELIMINARY 2020-05-29 19:54:59 Kesha Esquivel ethodist INTERPRETATION [facility] HC COMPLETE BLD COUNT 2020-05-29 19:16:00 Kesha Esquivel Spiritism W/AUTO DIFF [facility] COMPREHENSIVE METABOLIC 2020-05-29 19:16:00 Kesha Esquivel Spiritism PANEL [facility] ESTIMATED GFR 2020-05-29 19:16:00 Bryce Sanchez Spiritism POC GLUCOSE 2020-05-25 13:02:00 Julio Mcfadden Meth odist ECG 12-LEAD 2020-05-25 08:43:50 Augustin Lao Meth odist POC GLUCOSE 2020-05-25 03:30:00 Julio Mcfadden Meth odist POC GLUCOSE 2020-05-24 17:38:00 Julio Mcfadden Meth odist ECG 12-LEAD 2020-05-24 13:41:01 Rhiannon Razo M ethodist POC GLUCOSE 2020-05-24 11:53:00 Julio Mcfadden Meth odist THYROID STIMULATING 2020-05-24 04:30:00 Sara Luz HORMONE HC COMPLETE BLD COUNT 2020-05-24 04:30:00 Julio Mcfadden Spiritism W/AUTO DIFF BASIC METABOLIC PANEL 2020-05-24 04:30:00 Julio Mcfadden Spiritism HEPATITIS B SURFACE 2020-05-24 04:30:00 Sara Luz ANTIGEN VITAMIN D 25 HYDROXY 2020-05-24 04:30:00 Antony Glass on Spiritism LEVEL ESTIMATED GFR 2020-05-24 04:30:00 Atnony Glass Me thodist POC GLUCOSE 2020-05-24 04:00:00 Juilo Mcfadden Meth odist POC GLUCOSE 2020-05-23 17:15:00 Julio Mcfadden Meth odist POC GLUCOSE 2020-05-23 12:22:00 Julio Mcfadden Meth odist POC GLUCOSE 2020-05-23 09:31:00 Julio Mcfadden Meth odist FUNGUS CULTURE 2020-05-23 01:20:00 Sara Luz Meth odramsey GRAM STAIN 2020-05-23 01:20:00 Sara Luz Meth odramsey BLOOD CULTURE, AEROBIC & 2020-05-23 01:20:00 Augustin Lao ANAEROBIC CELL COUNT AND 2020-05-23 01:20:00 Sara Luz DIFFERENTIAL, BODY FLUID COVID-19 QUALITATIVE PCR 2020-05-22 23:48:00 Ruth Connor LACTIC ACID LEVEL, SEPSIS 2020-05-22 21:47:00 Ruth Connor - NOW AND REPEAT 2X EVERY 3 HOURS URINE CULTURE 2020-05-22 21:19:[address] ABDOMEN PELVIS WO 2020-05-22 21:04:13 Ruth Connor CONTRAST URINALYSIS SCREEN AND 2020-05-22 20:46:00 Ruth Connor MICROSCOPY, WITH REFLEX TO CULTURE BLOOD CULTURE, AEROBIC & 2020-05-22 18:56:00 Ruth Connor ANAEROBIC HC COMPLETE BLD COUNT 2020-05-22 18:56:00 Ruth Connor W/AUTO DIFF PROTHROMBIN TIME WITH INR 2020-05-22 18:56:00 Ruth Connor PARTIAL THROMBOPLASTIN 2020-05-22 18:56:00 Ruth Connor TIME (PTT) COMPREHENSIVE METABOLIC 2020-05-22 18:56:00 Ruth Connor PANEL LACTIC ACID LEVEL, SEPSIS 2020-05-22 18:56:00 Ruth Connor - NOW AND REPEAT 2X EVERY 3 HOURS ESTIMATED GFR 2020-05-22 18:56:00 Ruth Connor ethodist BLOOD CULTURE, AEROBIC & 2020-05-22 18:50:00 Connor, Ruth Garrett Spiritism ANAEROBIC Plan of Care Planned Activity Planned Date Details Comments Source Future Scheduled 2022-03-[address] [facility] Test 00:00:00 (procedure) [code = [facility] 83798810] Future Scheduled 2021-03-01 [facility] Influenza Seasonal [facility] 00:00:00 Mar to July (>/= 19 yrs) [code = IMM Influenza Seasonal Mar to July (>/= 19 yrs)] Future Scheduled 2021-01-[address] [facility] - Test 00:00:00 (Season Ended) [code = [facility] INFLUENZA VACCINE (Season Ended)] Future Scheduled 2020-12-30 INFLUENZA VACCINE [place] [facility] 00:00:00 [code = INFLUENZA VACCINE] Future Scheduled 2020-06-[address] [facility] - Test 00:00:00 (12+) [code = [facility] DEPRESSION SCREENING (12+)] Future Scheduled 2020-03-10 DM Retinal Exam [facility] 00:00:00 (Yearly) [code = DM Retinal Exam (Yearly)] Future Scheduled 2020-01-25 Urine [facility] 00:00:00 protein (procedure) [code = 832929068] Future Scheduled 2019-02-[address] (procedure) [code = 01119393] Future Scheduled 2019-01-[address] [facility] Test 00:00:00 WELLNESS (YEAR 2 or [facility] FIRST YEAR if no IPPE) [code = MEDICARE ANNUAL WELLNESS (YEAR 2 or FIRST YEAR if no IPPE)] Future Scheduled 2014 [facility] Cancer Sc[facility] 00:00:00 (Yearly) [code = Breast Cancer Scrn (Yearly)] Future Scheduled 2004 [facility]:00 malignant neoplasm of cervix (procedure) [code = 873947550] Future Scheduled 2004 [facility] 00:[facility]:00 malignant neoplasm of cervix (procedure) [code = 704090497] Future Scheduled 1995-12-04 [facility] 00[facility]00 [facility] (procedure) [code = 610495687] Future Scheduled 1995-12-04 Screening for [facility] thodist Test 00:00:00 malignant neoplasm of cervix (procedure) [code = 453923728] Future Scheduled 1993 DTAP/TDAP/TD VACCINES [facility] 00:00:00 (1 - Tdap) [code = Medical C enter DTAP/TDAP/TD VACCINES (1 - Tdap)] Future Scheduled 1992 DM Foot Exam (Yearly) [facility] 00:00:00 [code = DM Foot Exam (Yearly)] Future Scheduled 1990 COVID-19 Vaccine (1) [facility] 00:00:00 [code = COVID-19 Vaccine (1)] Future Scheduled [address] DI[address] EYE EXAM [facility] - Test 00:00:00 [code = DI[facility]IC EYE [facility] EXAM] Future Scheduled [address] [facility] 00[facility]00[facility]00 examination [facility] (regime/therapy) [code = 806977107] Future Scheduled 1984 Urine screening for [facility] - Test 00:00:00 protein (procedure) [facility] [code = 124788430] Future Scheduled 1984 DIABETES: RETINAL EYE [place] [facility] 00:00:00 EXAM [code = DIABETES: RETINAL EYE EXAM] Future Scheduled 1984 DIABETIC FOOT EXAM [place] [facility] 00:00:00 [code = DIABETIC FOOT EXAM] Future Scheduled [address] [facility] - Test 00:00:00 0-64 YRS (1 of 1 - Medical C enter PPSV23) [code = PNEUMOCOCCAL VACCINE 0-64 YRS (1 of 1 - PPSV23)] Future Scheduled 1974 Hemoglobin A1c [facility] Test 00:00:00 measurement (procedure) [code = 36411031] Encounters Start End Encounter Admission Attending Care Care Encounter Source Date/Time Date/Time Type Type Clinicians Facility Department ID 2020-10-25 2020-10-27 Outpatient [facility] [id number] [place] 00:00:00 00:00:00 [place] [address] 2020-10-22 2020-10-22 Outpatient MIMI [facility] [id number] [place] 00:00:00 00:00:00 RASHAWN [address] 2020-10-16 2020-10-16 Outpatient MIMI, [facility] [id number] [place] 00:00:00 00:00:00 RASHAWN [address] 2020-09-18 2020-09-29 Inpatient JOSÉ MIGUEL, [facility] [id number] [place] 00:00:00 00:00:00 DEEPAK [address] 2020-05-29 2020-06-06 Inpatient STEVEN, [facility] [id number] [place] 00:00:00 00:00:00 THNOLBERTOEN [address] 2020-05-22 2020-05-25 Outpatient NEESTELLE, [place] [id number] [place] 00:00:00 00:00:00 JULIO [address] 2020-02-14 2020-02-14 Outpatient JESSICA, [facility] [id number] [place] 00:00:00 00:00:00 ALYCIA [address] 2019-08-12 2019-08-12 Outpatient [facility] [id number] [place] 00:00:00 00:00:00 Health 2019-08-12 2019-08-12 Outpatient [facility] [id number] [place] 00:00:00 00:00:00 Health 2019-08-11 2019-08-11 Outpatient [facility] [id number] [place] 00:00:00 00:00:00 Health 2019-08-08 2019-08-08 Outpatient [facility] [id number] [place] 00:00:00 00:00:00 Health 2019-07-15 2019-07-15 Outpatient [facility] [id number] [place] 00:00:00 00:00:00 Health 2019-07-15 2019-07-15 Outpatient [facility] [id number] [place] 00:00:00 00:00:00 Health 2019-07-08 2019-07-08 Outpatient [facility] [id number] [place] 00:00:00 00:00:00 Health 2019-05-20 2019-05-20 Outpatient [facility] [id number] [place] 00:00:00 00:00:00 Health 2019-05-06 2019-05-06 Outpatient [facility] [id number] [place] 00:00:00 00:00:00 Health 2019-03-10 2019-03-10 Outpatient [facility] [id number] [place] 15:33:03 15:33:03 Health 2019-03-10 2019-03-10 Outpatient [facility] [id number] [place] 12:58:19 12:58:19 [facility] 2019-03-10 2019-03-10 Outpatient [facility] [id number] [place] 00:00:00 00:00:00 [facility] 2019-03-08 2019-03-08 Outpatient [facility] [id number] [place] 00:00:00 00:00:00 [facility] 2019-02-24 2019-02-24 Outpatient [facility] [id number] [place] 00:00:00 00:00:00 [facility] 2019-01-24 2019-01-24 Outpatient [facility] [id number] [place] 10:58:28 10:58:28 [facility] 2019-01-24 2019-01-24 Outpatient [facility] [id number] [place] 00:00:00 00:00:00 [facility] 2019-01-17 2019-01-17 Outpatient [facility] [id number] [place] 15:33:34 15:33:34 [facility] 2019-01-17 2019-01-17 Outpatient [facility] [id number] [place] 00:00:00 00:00:00 [facility] 2019-01-13 2019-01-13 Outpatient [facility] [id number] [place] 00:00:00 00:00:00 [facility] 2018-12-29 2018-12-29 Outpatient [facility] [id number] Melendez 00:00:00 00:00:00 [facility] 2018-12-28 2018-12-28 Outpatient [facility] [id number] Melendez 00:00:00 00:00:00 [facility] 2018-12-27 2018-12-27 Outpatient [facility] [id number] Melendez 08:38:55 08:38:55 [facility] 2018-09-13 2018-09-13 Outpatient [facility] [id number] Melendez 00:00:00 00:00:00 [facility] 2018-08-30 2018-08-30 Outpatient [facility] [id number] Melendez 10:20:14 10:20:14 [facility] 2018-08-23 2018-08-23 Outpatient [facility] [id number] Melendez 15:52:24 15:52:24 [facility] 2018-08-13 2018-08-13 Outpatient [facility] [id number] Melendez 13:43:29 13:43:29 [facility] 2018-08-12 2018-08-12 Outpatient [facility] [id number] Melendez 08:41:21 08:41:21 [facility] 2018-08-12 2018-08-12 Outpatient [facility] [id number] Melendez 00:05:30 00:05:30 Health 2018-08-12 2018-08-12 Outpatient [facility] [id number] Melendez 00:00:00 00:00:00 Health 2018-08-12 2018-08-12 Outpatient [facility] [id number] Melendez 00:00:00 00:00:00 Health Results Test Description Test Time Test Comments Results Result Comments Source POC glucose 2020-10-27 12:01:28 Test Item Value Reference Range Interpretation Comme nts POC glucose (test code = 258 mg/dL 65-99 H Ope rator Name: dorcas Zapata [id number]) ID: [id number] hartable: [facility] 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 Interpretation (test code = Abnormal 38777-7) Gerry NicholsonECG 12 [id number] 22:37:32 Test Item Value Reference Range Interpretation Comments Ventricular rate (test 95 code = 253) Atrial rate (test code 95 = 255) ME interval (test code 130 = 266) QRSD interval (test 72 code = 260) QT interval (test code 392 = 264) QTC interval (test code 492 = 265) P axis 1 (test code = 67 267) QRS axis 1 (test code = 71 268) T wave axis (test code 100 = 270) EKG impression (test Normal sinus code = 273) rhythm-Possible Left atrial enlargement-ST & T wave abnormality, consider lateral ischemia-Prolonged QT-Abnormal ECG-In automated comparison with ECG of 29-MAY-2020 20:40,-No significant change was found-Electronically Signed By Keegan SHAH, [facility] ([id number]) on 10/25/2020 10:37:31 PM Gerry RogersistType and [id number] 21:19:00 Test Item Value Reference Range Interpretation Comments ABO grouping (test code = 883-9) O Rh type (test code = 26048-9) POS Antibody screen (gel) (test code = NEG 890-4) Gerry NicholsonWheeled [id number] 01:34:51 Test Item Value Reference Range Interpretation Comments SUPPLIER NAME (test XMED Oxygen and code = 6415) Medical SUPPLIER PHONE (test [phone] code = 6416) ORDER STATUS (test code Delivery Successful = 6417) DELIVERY NOTE (test code = 6419) REQUESTED DELIVEY DATE 09/29/2020 (test code = 6420) ITEM DESCRIPTION (test Wheeled Walker, Adult Qty: 1 code = 6423) ACTUAL DELIVERY DATE 10/02/2020 (test code = 6422) Gerry MethodistCath tip [id number] 07:41:01 Test Item Value Reference Range Interpretation Comments Cath tip culture Negative Specimen In formationSpecimen isolate (test Source: Cathet er Tip code = 1015) Specimen Site: Abdomen: Peritoneal dial ysis catheter Culture; in add ition Aerobic culture Gerry MethodistXR Chest 1 Vw [id number] 11:25:16Hm Interface, Radiology Results Incoming - 09/26/2020 11:28 AM CDT EXAMINATION: XR CHEST 1 VW PORTABLECLINICAL HISTORY: 44 years Female ESRD. Getting outpt HD arranged.COMPARISON: 04/03/2019IMPRESSION:1.Right IJ catheter is in satisfactory position.2.The heart size is normal.3.There is no evidence of pulmonary edema. There are no focal consolidations. No pleural effusions. 1D2RAD_PS06[facility] MethodistCT Lumbar Spine Wo [id number] 15:47:04Hm Interface, Radiology Results Incoming - 09/19/2020 3:50 PM CDTFormatting of this note might be di fferent from the original.EXAMINATION: CT LUMBAR SPINE WO CONTRASTCLINICAL HISTORY: Low back pain progressive neurologic deficit, Low back pain increased fracture riskCOMPARISON: CT abdomen 05/29/2020TECHNIQUE: Axial noncontrast enhanced images of lumbar spine was performed with coronal sagittal rec onstruction algorithms. CT imaging was performed with iterative reconstruction technique and/or automated exposure control to reduce radiation dose.FINDINGS:Additional lumbosacral anatomy with partial sacralization of L5 on the left with left L5-S1 pseudoarticulation. Hypoplastic ribs at T12. The most inferior fully formed disc is L5-S1.No fracture. No subluxation. No suspicious osseous lesions. Calcified atherosclerosis abdominal aorta and branch vessels. Degenerative changes sacroiliac joints withvacuum clefts, sclerosis, and small osteophytes. Axial images through the disc spaces demonstrate the following:L1- L2: No significant posterior disc disease, spinal canal, subarticular zone, or neural foraminal stenosis. Mild facet arthropathy.L2-L3: No significant posterior disc disease, spinal canal, subarticular zone, or neural foraminal stenosis. Mild facet arthropathy.L3-L4: No significant posterior disc disease, spinal canal, subarticular zone, or neural foraminal stenosis. Mild facet arthropathy.L4-L5: Mild facet arthropathy and small disc bulge contributes to mild bilateral neural foraminaland subarticular zone stenosis without significant central spinal canal stenosis.L5-S1: Transitionallumbosacral anatomy with partial sacralization of L5 with left L5-S1 pseudoarticulation. There is mild to moderate right neural foraminal stenosis secondary to facet and endplate osteophytes. No significant posterior disc disease, spinal canal, subarticular zone, or left neural foraminal stenosis.IMPRESSION:1. 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 The most inferior fully formed disc is L5-S1.2. Multilevel mild degenerative changes of the lumbar spine as detailed above, most notably at L4-5 and L5-S1.1M2RAD_PS02[facility] MethodistGram stain [id number] 04:02:40Gram stain resultRare WBC'sNo organisms seen Comment: Specimen InformationSpecimen Source: Peritoneal fluidSpecimen Site: Peritoneal [facility] 1 Vw [id number] 07:26:48Hm Interface, Radiology Results Incoming 05/30/2020 7:29 AM CST EXAMINATION: XR ABDOMEN 1 VW PORTABLECLINICAL HISTORY: Abdominal swelling ascites suspected, UTI recurrent complicated (Female)COMPARISON: None.IMPRESSION: Liver appears mildly enlarged.Bowel gas pattern is normal.Arterial calcifications in the abdomen and pelvis.Peritoneal dialysis catheter and IUD in the pelvis.Trace pneumoperitoneum in the abdomen seen on CT 2019 is not visible on plain radiograph.No acute or suspicious osseous lesion is identified.[facility]-[id number] MethodFormerly [facility] Abdomen Pelvis Wo [id number] 22:37:12Hm Interface, Radiology Results Incoming 05/29/2020 10:40 PM CSTFormatting of this note might be di fferent from the original.EXAMINATION: CT ABDOMEN PELVIS WO CONTRASTCLINICAL HISTORY: 44 yearsFemale abd painTECHNIQUE: Multidetector computed axial tomography of the abdomen and pelvis was performed without contrast utilizing automated exposure control and/or iterative reconstruction technique to radiation dose. Coronal and sagittal reformatted images created at the CT scanner by a dedicated electronic technologist were also submitted for interpretation. Please note that lack of contrast limits evaluation of the abdominopelvic viscera. COMPARISON: May 22, 2020.SFINDINGS: LOWER THORAX: No acute airspace disease.ABDOMEN:Liver: Mildly enlarged measuring 18 cm correlation with LFTs may be indicated. No focal or suspicious hepatic mass. Gallbladder/Biliary: The gallbladder is normal. There is no evidence of intra or extrahepatic biliary ductal dilatation.Spleen: The spleen is not enlarged. Punctate calcifications.Pancreas: The pancreas is unremarkable.Adrenal Glands: The adrenal glands are unremarkable.Kidneys: The kidneys are mildly atrophic. No obstructive calcified nephrolithiasis or hydroureteronephrosis.Vascular: The abdominal aorta is nonaneurysmal. Extensive vascular calcifications.Nodes: No enlarged retroperitoneal or mesenteric lymphadenopathy.Gastrointestinal tract: Nonobstructive bowel gas pattern without acute inflammatory or infectious finding. The appendix is air-filled andotherwise unremarkable. Diverticulosis without evidence of diverticulitis.Ascites/fluid collections:Free air possibly secondary to the patient's peritoneal dialysis catheter. No ascites.PELVIS:*The uterus and ovaries are within normal limits for the patient's age. An IUD is present.*Prominence of thebladder wall which may be secondary to underdistention. Cystitis may also have this appearance.*No pathologic free fluid or lymphadenopathy. MUSCULOSKELETAL: No acute or suspicious osseous finding. IMPRESSION: 1.Prominent bladder wall which may be seen in the setting of cystitis, clinical correlationrecommended.2.Peritoneal dialysis catheter with free air within the abdomen and pelvis. No significant free fluid.3.Diverticulosis without evidence of diverticulitis.1D2RAD_PS05[facility] [place] Preliminary Interpretation - Not an [id number] 19:54:59 Test Item Value Reference Range Interpretation Comments NAYA (test code = NAYA) Kesha Esquivel MD 06/10/2020 7:58 [facility] Preliminary Interpretation - Not an OrderPerformed by: Kesha Esquivel MDAuthorized by: Kesha Esquivel MD ECG reviewed by ED Physician in the absence of a [employer] division director: yes Interpretation: Interpretation: abnormal Rate: ECG rate: 86 ECG rate assessment: normal Rhythm: Rhythm: sinus rhythm Ectopy: Ectopy: none QRS: QRS axis: Normal QRS intervals: NormalConduction: Conduction: normal ST segments: ST segments: Non-specificT waves: T waves: normal Comments: No STEMI. No signs of hyperkalemia. Lab Interpretation Abnormal (test code = 46842-1) Gerry NicholsonURINE [id number] 13:53:00 Test Item Value Reference Range Interpretation Comments CULTURE (BEAKER) (test KLEBSIELLA A >100, 000 col/mL code = 1095) PNEUMONIAE SSP Klebsiella PNEUMONIAE pneumoniae ssp pneumoniae Amikacin (test code = S 1) Ampicillin + Sulbactam S (test code = 6) Aztreonam (test code = S 32) Cefepime (test code = S 51) Cefoxitin (test code = S 68) Ceftazidime (test code S = 27) Ceftriaxone (test code S = 52) Ertapenem (test code = S 38) Gentamicin (test code = S 18) Levofloxacin (test code S = 22) Meropenem (test code = S 34) Nitrofurantoin (test R code = 23) Piperacillin + S Tazobactam (test code = 29) Tetracycline (test code R = 2) Tobramycin (test code = S 25) Trimethoprim + S Sulfamethoxazole (test code = 47) >100,000 col/mL skin floraURINE [id number] 11:03:00 Test Item Value Reference Range Interpretation Comments CULTURE (BEAKER) (test A 30-39 ,000 col/mL Trudy code = 1095) glabrata CT, CHEST, WITHOUT [id number] 15:11:00FINAL REPORT INDICATION: History of lung nodule. Evaluation before renal transplant. COMPARISON:Chest CT February 18, 2018 TECHNIQUE: Chest CT exam WITHOUT intravenous contrast.The exam was performed according to our department dose- optimization protocol, which includes automated exposure control, adjustments of mA and kV according to patient size. Iterative reconstructions are also sometimes employed. FINDINGS:Previously reported nodule in the right upper lobe is no longer present. No suspicious pulmonary nodule or mass is demonstrated. No pneumonia or bronchiectasis. No pulmonary edema or pleural effusion. Central airways are clear. No supraclavicular, mediastinal, or hilar lymphadenopathy is demonstrated. Heart is at the upper limits of normal in size with left atrium m easuring 4.0 cm in diameter. No pericardial effusion. Thoracic aorta and main pulmonary artery normal in caliber. Esophagus, upper abdomen, and osseous structures unremarkable. IMPRESSION: No pulmonarynodule.Borderline cardiomegaly. Signed: Veronica Mclean MDReport Verified Date/Time: 2018 15:11:39 Reading Location: [address] Radiology Reading Room URINE [id number] 11:13:00 Test Item Value Reference Range Interpretation Comments CULTURE (BEAKER) A >100,000 co l/mL (test code = 1095) Beta-hemo lytic streptococcus g roup B, by serological michelle upingIf this patient is preg nant, please refer to ACOG g uidelines for appropriate screening and management of colonized women. <10,000 col/mL gram negative rods.<10,00 col/ml skin floraPreviously reported organism is no longer reported. Please contact the Microbiology Department for additional information.U/S, PELVIS, WITH [id number] 15:05:00Reason for Exam:->esrd; eval for renal txpFINAL REPORT INDICATION: End-stage renal disease. Evaluation before renal lao splant. TECHNIQUE: Ultrasound exam was performed of the pelvic vessels, specifically the distal abdominal aorta and the iliac vessels. Color flow and spectral Doppler were used. FINDINGS / IMPRESSION:Distal abdominal aorta measures 1.2 cm. Right iliac arteries measure:common iliac 1.0 cmexternal iliac 0.7 cminternal iliac not visualized Left iliac arteries measure:common iliac 0.9 cmexternal iliac 0.7 cminternal iliac not visualized Right common and external iliac veins are patent.Left common iliac external, and internal iliac veins are patent.Right internal iliac vein not visualized. Signed: Veronica Mclean MDReport Verified Date/Time: 08/25/2018 15:05:04 Reading Location: [address] Radiology Reading Room U/S, ABDOMINAL, [id number] 14:54:00Reason for Exam:->esrd; eval for renal txpFINAL REPORT INDICATION: End-stage renal disease. Evaluation before renal transplant. TECHNIQUE: Abdominal ultrasound complete. COMPARISON: None. FINDINGS:Pancreas to the extent visualized is unremarkable.Proximal, mid, and distal abdominal aorta are normal in caliber.Visualizedpart of the IVC unremarkable.Liver echotexture, contour, and size are unremarkable.No liver mass demonstrated.Main portal vein normal in diameter measuring 1.2 cm.Gallbladder is unremarkable.Common bile duct normal diameter measuring 0.4 cm.Right kidney measures 8.9 x 4.6 x 4.0 cm.Left kidney measures9.5 x 5.3 x 4.6 cm.Renal cortex appears thinned in both kidneys.No renal mass or hydronephrosis is demonstrated.No evidence of a renal stone.Spleen normal in size measuring 11 x 3 cm. IMPRESSION: Cortical thinning of both kidneys, in keeping with end-stage renal disease. Otherwise, unremarkable abdomen ultrasound exam. Signed: Veronica Mclean MDReport Verified Date/Time: 08/25/2018 14:54:42 ReadingLocation: [address] Radiology Reading Room URINALYSIS W/ [id number] 11:37:00 Test Item Value Reference Range Interpretation Comments COLOR (BEAKER) (test code = 470) Light Yellow CLARITY (BEAKER) (test code = Clear 469) SPECIFIC GRAVITY UA (BEAKER) 1.009 1.001-1.035 (test code = 468) PH UA (BEAKER) (test code = 467) 7.0 5.0-8.0 PROTEIN UA (BEAKER) (test code = 600 mg/dL Negative A 464) GLUCOSE UA (BEAKER) (test code = 100 mg/dL Negative A 365) KETONES UA (BEAKER) (test code = Negative Negative 371) BILIRUBIN UA (BEAKER) (test code Negative Negative = 462) BLOOD UA (BEAKER) (test code = Small Negative A 461) NITRITE UA (BEAKER) (test code = Negative Negative 465) LEUKOCYTE ESTERASE UA (BEAKER) Negative Negative (test code = 466) UROBILINOGEN UA (BEAKER) (test 0.2 mg/dL 0.2-1.0 code = 463) RBC UA (BEAKER) (test code = < /HPF 519) WBC UA (BEAKER) (test code = 3 /HPF 520) BACTERIA (BEAKER) (test code = Rare 517) MUCUS (BEAKER) (test code = Rare 1574) SQUAMOUS EPITHELIAL (BEAKER) 1 /HPF (test code = 516) HYALINE CASTS (BEAKER) (test 2 /LPF code = 514) MIXED CELL CASTS (BEAKER) (test 2 /LPF code = 1581) SOURCE(BEAKER) (test code = 2795) HEMOGLOBIN [id number] 11:28:00 Test Item Value Reference Range Interpretation Comments HEMOGLOBIN A1C (BEAKER) (test code = 8.1 % 4.3-6.1 H 368) [id number] 11:13:00 Test Item Value Reference Range Interpretation Comments RPR SCREEN (BEAKER) (test code = Nonreactive Nonreactive 420) URIC [id number] 10:56:00 Test Item Value Reference Range Interpretation Comments URIC ACID (BEAKER) (test code = 10.3 mg/dL 2.6-7.2 H 773) PTH, [id number] 10:28:00 Test Item Value Reference Range Interpretation Comments PARATHYROID HORMONE INTACT 617.7 pg/mL 8.5-72.5 H (BEAKER) (test code = 577) COMPREHENSIVE METABOLIC [id number] 10:16:00 Test Item Value Reference Range Interpretation Comments TOTAL PROTEIN 7.3 gm/dL 6.0-8.3 (BEAKER) (test code = 770) ALBUMIN (BEAKER) 3.3 g/dL 3.5-5.0 L (test code = 1145) ALKALINE PHOSPHATASE 80 U/L 40-150 (BEAKER) (test code = 346) BILIRUBIN TOTAL 0.4 mg/dL 0.2-1.2 (BEAKER) (test code = 377) SODIUM (BEAKER) (test 137 meq/L 136-145 code = 381) POTASSIUM (BEAKER) 3.9 meq/L 3.5-5.1 (test code = 379) CHLORIDE (BEAKER) 101 meq/L 98-107 (test code = 382) CO2 (BEAKER) (test 25 meq/L 22-29 code = 355) BLOOD UREA NITROGEN 50 mg/dL 7-21 H (BEAKER) (test code = 354) CREATININE (BEAKER) 7.91 mg/dL 0.57-1.25 H (test code = 358) GLUCOSE RANDOM 94 mg/dL 70-105 (BEAKER) (test code = 652) CALCIUM (BEAKER) 7.9 mg/dL 8.4-10.2 L (test code = 697) AST (SGOT) (BEAKER) 14 U/L 5-34 (test code = 353) ALT (SGPT) (BEAKER) 13 U/L 6-55 (test code = 347) EGFR (BEAKER) (test 6 mL/min/1.73 ESTIMAT ED GFR IS code = 1092) sq m NOT ACCURATE CREATININE CLEARANCE IN PREDICTING GLOMERULAR FILTRATION RATE . ESTIMATED GFR I S NOT APPLICABLE FOR DIALYSIS PATIEN TS. [id number] 10:14:00 Test Item Value Reference Range Interpretation Comments PHOSPHORUS (BEAKER) (test code = 5.9 mg/dL 2.3-4.7 H 604) LIPID [id number] 10:14:00 Test Item Value Reference Range Interpretation Comments TRIGLYCERIDES (BEAKER) (test code = 345 mg/dL 540) CHOLESTEROL (BEAKER) (test code = 271 mg/dL 631) HDL CHOLESTEROL (BEAKER) (test code 31 mg/dL = 976) LDL CHOLESTEROL CALCULATED (BEAKER) 171 mg/dL (test code = 633) Triglyceride Reference Range: Low Risk <150 Borderline 150-199 High Risk 200-499 Very High Risk >=500Cholesterol Reference Range: Low Risk <200 Borderline 200-239 High Risk >240HDL Cholesterol Reference Range: Low Risk >=60 High Risk <40LDL Cholesterol Reference Range: Optimal <100 Near Optimal 100-129 Borderline 130-159 High 160-189 Very High >=190GAMMA GLUTAMYL TRANSFERASE (GGT)2018-08-25 10:14:00 Test Item Value Reference Range Interpretation Comments GAMMA GLUTAMYL TRANSFERASE (BEAKER) 25 U/L 9-64 (test code = 364) LACTATE DEHYDROGENASE (LDH)2018-08-25 10:14:00 Test Item Value Reference Range Interpretation Comments LACTATE DEHYDROGENASE (BEAKER) (test 338 U/L 125-220 H code = 635) [id number] 10:00:00 Test Item Value Reference Range Interpretation Comments PROTIME (BEAKER) (test code = 13.9 seconds 11.7-14.7 759) INR (BEAKER) (test code = 370) 1.0 <=5.9 PARTIAL THROMBOPLASTIN TIME 29.9 seconds 22.5-36.0 (BEAKER) (test code = 760) RECOMMENDED COUMADIN/WARFARIN INR THERAPY RANGESSTANDARD DOSE: 2.0 - 3.0 Includes: PROPHYLAXIS forvenous thrombosis, systemic embolization; TREATMENT for venous thrombosis and/or pulmonary embolus.HIGH RISK: Target INR is 2.5-3.5 for patients with mechanical heart valves.VARICELLA ZOSTER ANTIBODY, [id number] 11:58:00 Test Item Value Reference Range Interpretation Comments VARICELLA ZOSTER IGG (AL) (BEAKER) 4.9 (test code = 3197) VARICELLA ZOSTER RESULT INTERPRETATIONS: <=0.8 Al Nonreactive: Presumed non-immune to VZV 0.9-1.0 Al Equivocal >=1.1 Al Reactive: Presumed immune to VZVCYTOMEGALOVIRUS ANTIBODY, [id number] 11:55:00 Test Item Value Reference Range Interpretation Comments CYTOMEGALOVIRUS, IGG (BEAKER) Positive Negative, Equivocal A (test code = 3429) CMV IgG Result Interpretation: </= 0.8 Al Negative 0.9-1.0 Al Equivocal >/=1.1 Al PositiveCYTOMEGALOVIRUS ANTIBODY, [id number] 11:55:00 Test Item Value Reference Range Interpretation Comments CYTOMEGALOVIRUS IGM ANTIBODY Negative Negative, Equivocal (BEAKER) (test code = 3437) CMV IgM Result Interpretation: </= 0.8 Al Negative 0.9-1.0 Al Equivocal >/= 1.1 Al PositiveEBV ANTIBODY, [id number] 11:55:00 Test Item Value Reference Range Interpretation Comments MARIO PINEDA VIRAL CAPSID Positive Negative, Equivocal A ANTIGEN IGG (BEAKER) (test code = 3415) Mario Pineda Viral Capsid Antigen IgG Result Interpretation: </= 0.8 Al Negative 0.9-1.0 Al Equivocal >/= 1.1 Al PositiveEBV ANTIBODY, IGM 2018-04-28 11:55:00 Test Item Value Reference Range Interpretation Comments MARIO PINEDA VIRAL CAPSID Negative Negative, Equivocal ANTIGEN IGM (BEAKER) (test code = 3418) Mario Pineda Viral Capsid Antigen IgM Result Interpretation: </= 0.8 Al Negative 0.9-1.0 Al Equivocal >/= 1.1 Al [id number] 17:55:00 Test Item Value Reference Range Interpretation Comments RPR SCREEN (BEAKER) (test code = Nonreactive Nonreactive 420) HEPATITIS B SURFACE [id number] 15:38:00 Test Item Value Reference Range Interpretation Comments HEPATITIS B SURFACE ANTIBODY < mIU/mL <8.0 (BEAKER) (test code = 647) HEPATITIS B SURFACE [id number] 15:35:00 Test Item Value Reference Range Interpretation Comments HEPATITIS B SURFACE ANTIGEN (2) Nonreactive Nonreactive (BEAKER) (test code = 2585) HEPATITIS B CORE ANTIBODY, [id number] 15:35:00 Test Item Value Reference Range Interpretation Comments HEPATITIS B CORE IGM ANTIBODY Nonreactive Nonreactive (BEAKER) (test code = 645) HEPATITIS C [id number] 15:35:00 Test Item Value Reference Range Interpretation Comments HEPATITIS C ANTIBODY (BEAKER) Nonreactive Nonreactive (test code = 367) HIV-1 ANTIGEN WITH HIV-1/2 [id number] 15:35:00 Test Item Value Reference Range Interpretation Comments HIV-1 ANTIGEN WITH HIV 1\T\2 Nonreactive Nonreactive ANTIBODY (2) (BEAKER) (test code = 2586) RAD, CHEST, 2 [id number] 14:56:00Reason for Exam:->esrd; eval for renal txpFINAL REPORT TECHNIQUE: Frontal and lateral chest radiographs dated 04/27/2018. CLINICAL HISTORY: ESRD COMPARISON STUDY: Chest radiograph dated 02/17/2018 FINDINGS: Lungs are clear. No pleural effusion or pneumothorax. Cardiomediastinal silhouette is normal in size. No pulmonary edema. No bone or soft tissue abnormalities are seen. IMPRESSION: Clear lungs. Signed: Eliazar Abel MDReport Verified Date/Time: 04/27/2018 14:56:34 Reading Location: [facility] Radiology Reading Room [id number] 13:10:00 Test Item Value Reference Range Interpretation Comments FERRITIN (BEAKER) (test code = 361) 48 ng/mL 5-275 [id number] 12:45:00 Test Item Value Reference Range Interpretation Comments FERRITIN (BEAKER) (test code = 361) 53 ng/mL 5-275 POCT-GLUCOSE [id number] 08:17:00 Test Item Value Reference Range Interpretation Comments POC-GLUCOSE METER 135 mg/dL 70-[address] [facility] [address] (BEAKER) (test code = [address] [place] 15[address]) [address] BASIC METABOLIC [id number] 06:02:00 Test Item Value Reference Range Interpretation Comments SODIUM (BEAKER) 138 meq/L 136-145 (test code = 381) POTASSIUM (BEAKER) 4.3 meq/L 3.5-5.1 (test code = 379) CHLORIDE (BEAKER) 106 meq/L 98-107 (test code = 382) CO2 (BEAKER) (test 20 meq/L 22-29 L code = 355) BLOOD UREA NITROGEN 69 mg/dL 7-21 H (BEAKER) (test code = 354) CREATININE (BEAKER) 6.93 mg/dL 0.57-1.25 H (test code = 358) GLUCOSE RANDOM 105 mg/dL 70-105 (BEAKER) (test code = 652) CALCIUM (BEAKER) 8.0 mg/dL 8.4-10.2 L (test code = 697) EGFR (BEAKER) (test 6 mL/min/1.73 ESTIMAT ED GFR IS code = 1092) sq m NOT ACCURATE CREATININE CLEARANCE IN PREDICTING GLOMERULAR FILTRATION RATE . ESTIMATED GFR I S NOT APPLICABLE FOR DIALYSIS PATIEN TS. [id number] 05:40:00 Test Item Value Reference Range Interpretation Comments PHOSPHORUS (BEAKER) (test code = 6.1 mg/dL 2.3-4.7 H 604) [id number] 05:40:00 Test Item Value Reference Range Interpretation Comments MAGNESIUM (BEAKER) (test code = 2.0 mg/dL 1.6-2.6 627) POCT-GLUCOSE [id number] 21:26:00 Test Item Value Reference Range Interpretation Comments POC-GLUCOSE METER 196 mg/dL 70-[address] [facility] [address] (BEAKER) (test code = [address] [facility] 1538) [address] POCT-GLUCOSE [id number] 18:20:00 Test Item Value Reference Range Interpretation Comments POC-GLUCOSE METER 240 mg/dL 70-110 H TESTED AT [place] [address] (BEBANNER) (test code = [facility] 1538) [address] POCT-GLUCOSE [id number] 13:43:00 Test Item Value Reference Range Interpretation Comments POC-GLUCOSE METER 162 mg/dL 70-110 H TESTED AT [place] [address] (BEBANNER) (test code = [facility] 1538) [address] BASIC METABOLIC [id number] 09:56:00 Test Item Value Reference Range Interpretation Comments SODIUM (BEAKER) 138 meq/L 136-145 (test code = 381) POTASSIUM (BEAKER) 4.1 meq/L 3.5-5.1 (test code = 379) CHLORIDE (BEAKER) 107 meq/L 98-107 (test code = 382) CO2 (BEAKER) (test 20 meq/L 22-29 L code = 355) BLOOD UREA NITROGEN 67 mg/dL 7-21 H (BEAKER) (test code = 354) CREATININE (BEAKER) 7.24 mg/dL 0.57-1.25 H (test code = 358) GLUCOSE RANDOM 102 mg/dL 70-105 (BEAKER) (test code = 652) CALCIUM (BEAKER) 7.4 mg/dL 8.4-10.2 L (test code = 697) EGFR (BEAKER) (test 6 mL/min/1.73 ESTIMAT ED GFR IS code = 1092) sq m NOT ACCURATE CREATININE CLEARANCE IN PREDICTING GLOMERULAR FILTRATION RATE . ESTIMATED GFR I S NOT APPLICABLE FOR DIALYSIS PATIEN TS. [id number] 09:45:00 Test Item Value Reference Range Interpretation Comments PHOSPHORUS (BEAKER) (test code = 6.0 mg/dL 2.3-4.7 H 604) [id number] 09:45:00 Test Item Value Reference Range Interpretation Comments MAGNESIUM (BEAKER) (test code = 2.5 mg/dL 1.6-2.6 627) CREATINE KINASE (CK)2018-02-20 09:45:00 Test Item Value Reference Range Interpretation Comments CREATINE KINASE TOTAL (BEAKER) (test 281 U/L 29-200 H code = 380) POCT-GLUCOSE [id number] 09:14:00 Test Item Value Reference Range Interpretation Comments POC-GLUCOSE METER 103 mg/dL 70-[address] [facility] [address] (BEAKER) (test code = [place] [place] [address]) [address] CBC W/PLT COUNT & AUTO [id number] 08:03:00 Test Item Value Reference Range Interpretation Comments WHITE BLOOD CELL COUNT (BEAKER) 9.3 K/ L 3.5-10.5 (test code = 775) RED BLOOD CELL COUNT (BEAKER) 2.84 M/ L 3.93-5.22 L (test code = 761) HEMOGLOBIN (BEAKER) (test code = 8.1 GM/DL 11.2-15.7 L 410) HEMATOCRIT (BEAKER) (test code = 25.4 % 34.1-44.9 L 411) MEAN CORPUSCULAR VOLUME (BEAKER) 89.4 fL 79.4-94.8 (test code = 753) MEAN CORPUSCULAR HEMOGLOBIN 28.5 pg 25.6-32.2 (BEAKER) (test code = 751) MEAN CORPUSCULAR HEMOGLOBIN CONC 31.9 GM/DL 32.2-35.5 L (BEAKER) (test code = 752) RED CELL DISTRIBUTION WIDTH 13.4 % 11.7-14.4 (BEAKER) (test code = 412) PLATELET COUNT (BEAKER) (test 301 K/CU MM 150-450 code = 756) MEAN PLATELET VOLUME (BEAKER) 10.9 fL 9.4-12.3 (test code = 754) NUCLEATED RED BLOOD CELLS 0 /100 WBC 0-0 (BEAKER) (test code = 413) NEUTROPHILS RELATIVE PERCENT 57 % (BEAKER) (test code = 429) LYMPHOCYTES RELATIVE PERCENT 28 % (BEAKER) (test code = 430) MONOCYTES RELATIVE PERCENT 8 % (BEAKER) (test code = 431) EOSINOPHILS RELATIVE PERCENT 4 % (BEAKER) (test code = 432) BASOPHILS RELATIVE PERCENT 1 % (BEAKER) (test code = 437) NEUTROPHILS ABSOLUTE COUNT 5.29 K/ L 1.56-6.13 (BEAKER) (test code = 670) LYMPHOCYTES ABSOLUTE COUNT 2.63 K/ L 1.18-3.74 (BEAKER) (test code = 414) MONOCYTES ABSOLUTE COUNT (BEAKER) 0.75 K/ L 0.24-0.36 H (test code = 415) EOSINOPHILS ABSOLUTE COUNT 0.40 K/ L 0.04-0.36 H (BEAKER) (test code = 416) BASOPHILS ABSOLUTE COUNT (BEAKER) 0.05 K/ L 0.01-0.08 (test code = 417) IMMATURE GRANULOCYTES-RELATIVE 2 % 0-1 H PERCENT (AKER) (test code = 2801) POCT-GLUCOSE [id number] 22:12:00 Test Item Value Reference Range Interpretation Comments POC-GLUCOSE METER 280 mg/dL 70-110 H TESTED AT [place] [address] ([facility]) (test code = [facility] 1538) [address] POCT-GLUCOSE [id number] 11:46:00 Test Item Value Reference Range Interpretation Comments POC-GLUCOSE METER 92 mg/dL 70-110 TESTED AT [place] [address] ([facility]) (test code = [facility] [address] 1538) POCT-GLUCOSE [id number] 07:43:00 Test Item Value Reference Range Interpretation Comments POC-GLUCOSE METER 199 mg/dL 70-110 H TESTED AT [place] [address] ([facility]) (test code = [facility] 1538) [address] HEPATITIS B [id number] 07:13:00 Test Item Value Reference Range Interpretation Comments HEPATITIS B CORE TOTAL ANTIBODY Nonreactive Nonreactive (BEAKER) (test code = 497) HEPATITIS B SURFACE ANTIBODY < mIU/mL <8.0 ([facility]) (test code = 647) HEPATITIS B SURFACE ANTIGEN (2) Nonreactive Nonreactive ([facility]) (test code = 2585) IRON, TIBC, % SAT. (WITHOUT FERRITIN)2018-02-19 05:56:00 Test Item Value Reference Range Interpretation Comments IRON (BEAKER) (test code = 547) 42 ug/dL 40-160 TOTAL IRON BINDING CAPACITY 230 ug/dL 250-450 L (BEAKER) (test code = 769) IRON % SATURATION (2) (BEAKER) 18 % 20-55 L (test code = 2590) CALCIUM, [id number] 05:18:00 Test Item Value Reference Range Interpretation Comments CALCIUM IONIZED (BEAKER) (test 0.93 mmol/L 1.12-1.27 L code = 698) PH, BLOOD (BEAKER) (test code = 7.26 1810) BASIC METABOLIC [id number] 05:13:00 Test Item Value Reference Range Interpretation Comments SODIUM (BEAKER) 138 meq/L 136-145 (test code = 381) POTASSIUM (BEAKER) 4.1 meq/L 3.5-5.1 (test code = 379) CHLORIDE (BEAKER) 110 meq/L 98-107 H (test code = 382) CO2 (BEAKER) (test 19 meq/L 22-29 L code = 355) BLOOD UREA NITROGEN 61 mg/dL 7-21 H (BEAKER) (test code = 354) CREATININE (BEAKER) 6.84 mg/dL 0.57-1.25 H (test code = 358) GLUCOSE RANDOM 163 mg/dL 70-105 H (BEAKER) (test code = 652) CALCIUM (BEAKER) 7.3 mg/dL 8.4-10.2 L (test code = 697) EGFR (BEAKER) (test 7 mL/min/1.73 ESTIMAT ED GFR IS code = 1092) sq m NOT ACCURATE CREATININE CLEARANCE IN PREDICTING GLOMERULAR FILTRATION RATE . ESTIMATED GFR I S NOT APPLICABLE FOR DIALYSIS PATIEN TS. [id number] 05:10:00 Test Item Value Reference Range Interpretation Comments PHOSPHORUS (BEAKER) (test code = 6.0 mg/dL 2.3-4.7 H 604) [id number] 05:10:00 Test Item Value Reference Range Interpretation Comments MAGNESIUM (BEAKER) (test code = 1.5 mg/dL 1.6-2.6 L 627) HEPATIC FUNCTION [id number] 05:10:00 Test Item Value Reference Range Interpretation Comments TOTAL PROTEIN (BEAKER) (test code = 5.6 gm/dL 6.0-8.3 L 770) ALBUMIN (BEAKER) (test code = 1145) 2.5 g/dL 3.5-5.0 L BILIRUBIN TOTAL (BEAKER) (test code 0.2 mg/dL 0.2-1.2 = 377) BILIRUBIN DIRECT (BEAKER) (test 0.1 mg/dL 0.1-0.5 code = 706) ALKALINE PHOSPHATASE (BEAKER) (test 100 U/L 40-150 code = 346) AST (SGOT) (BEAKER) (test code = 17 U/L 5-34 353) ALT (SGPT) (BEAKER) (test code = 15 U/L 6-55 347) CBC W/PLT COUNT & AUTO [id number] 04:40:00 Test Item Value Reference Range Interpretation Comments WHITE BLOOD CELL COUNT (BEAKER) 7.3 K/ L 3.5-10.5 (test code = 775) RED BLOOD CELL COUNT (BEAKER) 2.78 M/ L 3.93-5.22 L (test code = 761) HEMOGLOBIN (BEAKER) (test code = 8.1 GM/DL 11.2-15.7 L 410) HEMATOCRIT (BEAKER) (test code = 25.2 % 34.1-44.9 L 411) MEAN CORPUSCULAR VOLUME (BEAKER) 90.6 fL 79.4-94.8 (test code = 753) MEAN CORPUSCULAR HEMOGLOBIN 29.1 pg 25.6-32.2 (BEAKER) (test code = 751) MEAN CORPUSCULAR HEMOGLOBIN CONC 32.1 GM/DL 32.2-35.5 L (BEAKER) (test code = 752) RED CELL DISTRIBUTION WIDTH 13.6 % 11.7-14.4 (BEAKER) (test code = 412) PLATELET COUNT (BEAKER) (test 272 K/CU MM 150-450 code = 756) MEAN PLATELET VOLUME (BEAKER) 11.0 fL 9.4-12.3 (test code = 754) NUCLEATED RED BLOOD CELLS 0 /100 WBC 0-0 (BEAKER) (test code = 413) NEUTROPHILS RELATIVE PERCENT 53 % (BEAKER) (test code = 429) LYMPHOCYTES RELATIVE PERCENT 31 % (BEAKER) (test code = 430) MONOCYTES RELATIVE PERCENT 10 % (BEAKER) (test code = 431) EOSINOPHILS RELATIVE PERCENT 6 % (BEAKER) (test code = 432) BASOPHILS RELATIVE PERCENT 1 % (BEAKER) (test code = 437) NEUTROPHILS ABSOLUTE COUNT 3.85 K/ L 1.56-6.13 ([facility]) (test code = 670) LYMPHOCYTES ABSOLUTE COUNT 2.22 K/ L 1.18-3.74 (AKER) (test code = 414) MONOCYTES ABSOLUTE COUNT (BEAKER) 0.69 K/ L 0.24-0.36 H (test code = 415) EOSINOPHILS ABSOLUTE COUNT 0.40 K/ L 0.04-0.36 H (AKER) (test code = 416) BASOPHILS ABSOLUTE COUNT (BEAKER) 0.04 K/ L 0.01-0.08 (test code = 417) IMMATURE GRANULOCYTES-RELATIVE 1 % 0-1 PERCENT ([facility]) (test code = 2801) POCT-GLUCOSE [id number] 04:18:00 Test Item Value Reference Range Interpretation Comments POC-GLUCOSE METER 156 mg/dL 70-110 H TESTED AT [place] [address] ([facility]) (test code = [facility] 1538) [address] POCT-GLUCOSE [id number] 04:18:00 Test Item Value Reference Range Interpretation Comments POC-GLUCOSE METER 57 mg/dL 70-110 L Notified Dottie Salinas MD/TESTED AT ([facility]) (test code = [place] [address] [facility] [address] POCT-GLUCOSE [id number] 21:19:00 Test Item Value Reference Range Interpretation Comments POC-GLUCOSE METER 177 mg/dL 70-110 H TESTED AT [place] [address] ([facility]) (test code = [facility] Dottie [facility] 1538) [address] POCT-GLUCOSE [id number] 17:21:00 Test Item Value Reference Range Interpretation Comments POC-GLUCOSE METER 86 mg/dL 70-110 TESTED AT [place] [address] ([facility]) (test code = [facility] Dottie [facility] [address] 1538) POCT-GLUCOSE [id number] 12:13:00 Test Item Value Reference Range Interpretation Comments POC-GLUCOSE METER 125 mg/dL 70-110 H TESTED AT [place] [address] ([facility]) (test code = [facility] Dottie [facility] 1538) [address] CT, CHEST, WITHOUT [id number] 10:59:00NO CONTRASTFINAL REPORT HISTORY: SOB, pulmonary edema suspectedNonspecific left hilum foc al opacity is noted COMPARISON : No prior chest CT is available for comparison. However, a chest x-ray dated 02/17/2018 is available for comparison. Technique : Multiple axial images of the chest were performed from the lung apices to the lung bases without the administration of IV contrast. Images were presented in both the lung and soft tissue windows. This exam was performed according to our departmental dose optimization program which includes automated exposure control, adjustment of the mA and/or kV according to patient size and/or use of iterative reconstructive technique. Comment: The thyroid gland is within normal limits. There is no axillary or hilar lymphadenopathy. There are some nonspec ifically prominent mediastinal lymph nodes. The largest mediastinal lymph node is seen in a pretracheal location measuring up to 1.4 x 1.1 cm. These lymph nodes are nonspecific. The visualized portionsof the liver, spleen, adrenal glands, pancreas, and kidneys are within normal limits. Multilevel degenerative disc changes of the visualized thoracolumbar spine are seen. No pneumothorax is visualized.In the right upper lobe, there is a cluster of several nodules identified that are more likely secondary to an inflammatory/infectious process. Close CT follow-up is advised after treatment to documentresolution to exclude the possibility of an underlying mass. There are trace bilateral pleural effusi ons, right greater than left. Adjacent consolidations more likely represent atelectasis. Pneumonitisor aspiration cannot be excluded. There is partial atelectasis/collapse of the left lower lobe. Impression: 1. Trace bilateral pleural effusions. Adjacent consolidations more likely represent atelectasis. Pneumonitis or aspiration cannot be excluded. 2. Clustered nodules in the right upper lobe that could be secondary to inflammatory/infectious process. Close CT follow-up is advised. Signed: [place] [employer] Verified Date/Time: 02/18/2018 10:59:43 Reading Location: [facility] C013Y CT Body ReadingRoom HEMOGLOBIN A1C 2018-02-18 09:40:00 Test Item Value Reference Range Interpretation Comments HEMOGLOBIN A1C (BEAKER) (test code = 7.8 % 4.3-6.1 H 368) POCT-GLUCOSE [id number] 08:33:00 Test Item Value Reference Range Interpretation Comments POC-GLUCOSE METER 94 mg/dL 70-[address] [facility] 6720 (BEAKER) (test code = [place] [address] 8938) BASIC METABOLIC [id number] 05:44:00 Test Item Value Reference Range Interpretation Comments SODIUM (BEAKER) 141 meq/L 136-145 (test code = 381) POTASSIUM (BEAKER) 4.2 meq/L 3.5-5.1 (test code = 379) CHLORIDE (BEAKER) 114 meq/L 98-107 H (test code = 382) CO2 (BEAKER) (test 17 meq/L 22-29 L code = 355) BLOOD UREA NITROGEN 61 mg/dL 7-21 H (BEAKER) (test code = 354) CREATININE (BEAKER) 6.89 mg/dL 0.57-1.25 H (test code = 358) GLUCOSE RANDOM 95 mg/dL 70-105 (BEAKER) (test code = 652) CALCIUM (BEAKER) 7.4 mg/dL 8.4-10.2 L (test code = 697) EGFR (BEAKER) (test 7 mL/min/1.73 ESTIMAT ED GFR IS code = 1092) sq m NOT ACCURATE CREATININE CLEARANCE IN PREDICTING GLOMERULAR FILTRATION RATE . ESTIMATED GFR I S NOT APPLICABLE FOR DIALYSIS PATIEN TS. CBC W/PLT COUNT & AUTO [id number] 05:19:00 Test Item Value Reference Range Interpretation Comments WHITE BLOOD CELL COUNT (BEAKER) 8.3 K/ L 3.5-10.5 (test code = 775) RED BLOOD CELL COUNT (BEAKER) 2.72 M/ L 3.93-5.22 L (test code = 761) HEMOGLOBIN (BEAKER) (test code = 8.0 GM/DL 11.2-15.7 L 410) HEMATOCRIT (BEAKER) (test code = 25.0 % 34.1-44.9 L 411) MEAN CORPUSCULAR VOLUME (BEAKER) 91.9 fL 79.4-94.8 (test code = 753) MEAN CORPUSCULAR HEMOGLOBIN 29.4 pg 25.6-32.2 (BEAKER) (test code = 751) MEAN CORPUSCULAR HEMOGLOBIN CONC 32.0 GM/DL 32.2-35.5 L (BEAKER) (test code = 752) RED CELL DISTRIBUTION WIDTH 13.9 % 11.7-14.4 (BEAKER) (test code = 412) PLATELET COUNT (BEAKER) (test 283 K/CU MM 150-450 code = 756) MEAN PLATELET VOLUME (BEAKER) 10.9 fL 9.4-12.3 (test code = 754) NUCLEATED RED BLOOD CELLS 0 /100 WBC 0-0 (BEAKER) (test code = 413) NEUTROPHILS RELATIVE PERCENT 61 % (BEAKER) (test code = 429) LYMPHOCYTES RELATIVE PERCENT 26 % (BEAKER) (test code = 430) MONOCYTES RELATIVE PERCENT 9 % (BEAKER) (test code = 431) EOSINOPHILS RELATIVE PERCENT 3 % (BEAKER) (test code = 432) BASOPHILS RELATIVE PERCENT 0 % (BEAKER) (test code = 437) NEUTROPHILS ABSOLUTE COUNT 5.11 K/ L 1.56-6.13 (BEAKER) (test code = 670) LYMPHOCYTES ABSOLUTE COUNT 2.17 K/ L 1.18-3.74 (BEAKER) (test code = 414) MONOCYTES ABSOLUTE COUNT (BEAKER) 0.72 K/ L 0.24-0.36 H (test code = 415) EOSINOPHILS ABSOLUTE COUNT 0.23 K/ L 0.04-0.36 (BEAKER) (test code = 416) BASOPHILS ABSOLUTE COUNT (BEAKER) 0.03 K/ L 0.01-0.08 (test code = 417) IMMATURE GRANULOCYTES-RELATIVE 1 % 0-1 PERCENT (BEAKER) (test code = 2801) [id number] 00:31:00 Test Item Value Reference Range Interpretation Comments POTASSIUM (BEAKER) (test code = 4.2 meq/L 3.5-5.1 379) [id number] 00:31:00 Test Item Value Reference Range Interpretation Comments PHOSPHORUS (BEAKER) (test code = 5.7 mg/dL 2.3-4.7 H 604) POCT-GLUCOSE [id number] 21:26:00 Test Item Value Reference Range Interpretation Comments POC-GLUCOSE METER 165 mg/dL 70-[address] [facility] 67[address] (BEAKER) (test code = [place] 1538) [address] RAD, ABDOMEN/KUB, 1 VIEW [id number] 17:29:00Reason for exam:->s/p pd catheter palcement. no bowel sounds, not passing gas, vomiting po Should this be performed at the bedside?->YesFINAL REPORT EXAM: AP abdominal radiographs, 2 images HISTORY PROVIDED: Status post peritoneal catheter placement. No bowel sounds, not passing gas, vomiting COMPARISON: None available IMPRESSION:The bowel gas pattern is nonspecific and appears nonobstructed without dilated loops of bowel to suggest obstruction. A moderate amount of stool is seen within the colon. No definite free air is seen, this examination is insensitive for the detection of free air. A peritoneal dialysis catheter is in place. No acute osseous abnormality. An IUD is also in place in the pelvis. Signed: Collin Douglas MDReport Verified Date/Time: 02/17/2018 17:29:52 Reading Location: [facility] Reading Room POCT-GLUCOSE [id number] 17:21:00 Test Item Value Reference Range Interpretation Comments POC-GLUCOSE METER 123 mg/dL 70-[address] [facility] 67[address] (BEAKER) (test code = [facility] 1538) [address] URINALYSIS W/ REFLEX URINE [id number] 14:36:00 Test Item Value Reference Range Interpretation Comments COLOR (BEAKER) (test code = 470) Light Yellow CLARITY (BEAKER) (test code = Hazy 469) SPECIFIC GRAVITY UA (BEAKER) 1.011 1.001-1.035 (test code = 468) PH UA (BEAKER) (test code = 467) 6.0 5.0-8.0 PROTEIN UA (BEAKER) (test code = 300 mg/dL Negative A 464) GLUCOSE UA (BEAKER) (test code = 200 mg/dL Negative A 365) KETONES UA (BEAKER) (test code = Negative Negative 371) BILIRUBIN UA (BEAKER) (test code Negative Negative = 462) BLOOD UA (BEAKER) (test code = Moderate Negative A 461) NITRITE UA (BEAKER) (test code = Negative Negative 465) LEUKOCYTE ESTERASE UA (BEAKER) Negative Negative (test code = 466) UROBILINOGEN UA (BEAKER) (test 0.2 mg/dL 0.2-1.0 code = 463) RBC UA (BEAKER) (test code = 0 /HPF 519) WBC UA (BEAKER) (test code = 2 /HPF 520) MUCUS (BEAKER) (test code = Rare 1574) SQUAMOUS EPITHELIAL (BEAKER) < /HPF (test code = 516) HYALINE CASTS (BEAKER) (test 2 /LPF code = 514) CASTS (BEAKER) (test code = 2 /LPF 1579) YEAST (BEAKER) (test code = Moderate 1585) SOURCE(BEAKER) (test code = 8545) B-TYPE NATRIURETIC FACTOR (BNP)2018-02-17 14:29:00 Test Item Value Reference Range Interpretation Comments B-TYPE NATRIURETIC PEPTIDE (BEAKER) 378 pg/mL 0-100 H (test code = 700) POCT-GLUCOSE [id number] 12:30:00 Test Item Value Reference Range Interpretation Comments POC-GLUCOSE METER 202 mg/dL 70-[address] [facility] 67[facility] (BEAKER) (test code = [place] 1538) [address] BASIC METABOLIC [id number] 12:30:00 Test Item Value Reference Range Interpretation Comments SODIUM (BEAKER) 134 meq/L 136-145 L (test code = 381) POTASSIUM (BEAKER) 5.7 meq/L 3.5-5.1 H (test code = 379) CHLORIDE (BEAKER) 110 meq/L 98-107 H (test code = 382) CO2 (BEAKER) (test 15 meq/L 22-29 L code = 355) BLOOD UREA NITROGEN 66 mg/dL 7-21 H (BEAKER) (test code = 354) CREATININE (BEAKER) 6.55 mg/dL 0.57-1.25 H (test code = 358) GLUCOSE RANDOM 203 mg/dL 70-105 H (BEAKER) (test code = 652) CALCIUM (BEAKER) 7.5 mg/dL 8.4-10.2 L (test code = 697) EGFR (BEAKER) (test 7 mL/min/1.73 ESTIMAT ED GFR IS code = 1092) sq m NOT ACCURATE CREATININE CLEARANCE IN PREDICTING GLOMERULAR FILTRATION RATE . ESTIMATED GFR I S NOT APPLICABLE FOR DIALYSIS PATIEN TS. CBC W/PLT COUNT & AUTO [id number] 12:09:00 Test Item Value Reference Range Interpretation Comments WHITE BLOOD CELL COUNT (BEAKER) 11.0 K/ L 3.5-10.5 H (test code = 775) RED BLOOD CELL COUNT (BEAKER) 2.88 M/ L 3.93-5.22 L (test code = 761) HEMOGLOBIN (BEAKER) (test code = 8.3 GM/DL 11.2-15.7 L 410) HEMATOCRIT (BEAKER) (test code = 26.5 % 34.1-44.9 L 411) MEAN CORPUSCULAR VOLUME (BEAKER) 92.0 fL 79.4-94.8 (test code = 753) MEAN CORPUSCULAR HEMOGLOBIN 28.8 pg 25.6-32.2 (BEAKER) (test code = 751) MEAN CORPUSCULAR HEMOGLOBIN CONC 31.3 GM/DL 32.2-35.5 L (BEAKER) (test code = 752) RED CELL DISTRIBUTION WIDTH 13.7 % 11.7-14.4 (BEAKER) (test code = 412) PLATELET COUNT (BEAKER) (test 269 K/CU MM 150-450 code = 756) MEAN PLATELET VOLUME (BEAKER) 10.7 fL 9.4-12.3 (test code = 754) NUCLEATED RED BLOOD CELLS 0 /100 WBC 0-0 (BEAKER) (test code = 413) NEUTROPHILS RELATIVE PERCENT 83 % (BEAKER) (test code = 429) LYMPHOCYTES RELATIVE PERCENT 10 % (BEAKER) (test code = 430) MONOCYTES RELATIVE PERCENT 5 % (BEAKER) (test code = 431) EOSINOPHILS RELATIVE PERCENT 0 % (BEAKER) (test code = 432) BASOPHILS RELATIVE PERCENT 0 % (BEAKER) (test code = 437) NEUTROPHILS ABSOLUTE COUNT 9.18 K/ L 1.56-6.13 H (BEAKER) (test code = 670) LYMPHOCYTES ABSOLUTE COUNT 1.08 K/ L 1.18-3.74 L (BEAKER) (test code = 414) MONOCYTES ABSOLUTE COUNT (BEAKER) 0.59 K/ L 0.24-0.36 H (test code = 415) EOSINOPHILS ABSOLUTE COUNT 0.03 K/ L 0.04-0.36 L (BEAKER) (test code = 416) BASOPHILS ABSOLUTE COUNT (BEAKER) 0.04 K/ L 0.01-0.08 (test code = 417) IMMATURE GRANULOCYTES-RELATIVE 1 % 0-1 PERCENT ([facility]) (test code = 2801) RAD, CHEST, 1 VIEW, NON [id number] 11:55:00Reason for exam:->Persistant CoughShould this be performed at the bedside?->YesFINAL REPORT Chest one view Discussion: Nonspecific left hilum focal opacity is noted. I could not exclude a hilar mass or focal infiltrate. There is bilateral pulmonary congestion and probable small left effusion. No pneumothorax. Heart size normal. IMPRESSIONS: Recommend chestCT to better evaluate left pulmonary findings. Signed: Shira Renae Verified Date/Time: 02/17/2018 11:55:27 Reading Location: [facility] Radiology Reading Room POCT-GLUCOSE METER 2018-02-17 08:08:00 Test Item Value Reference Range Interpretation Comments POC-GLUCOSE METER 101 mg/dL 70-110 TESTED AT [place] [address] ([facility]) (test code = [facility] [employer] [facility] 1538) [id number] POCT-GLUCOSE [id number] 06:49:00 Test Item Value Reference Range Interpretation Comments POC-GLUCOSE METER 107 mg/dL 70-110 TESTED AT [place] [address] ([facility]) (test code = [facility] [employer] [facility] 1538) [address] POCT-GLUCOSE [id number] 23:06:00 Test Item Value Reference Range Interpretation Comments POC-GLUCOSE METER 197 mg/dL 70-110 H TESTED AT [place] [address] ([facility]) (test code = [employer] [facility] 1538) [address] POCT-GLUCOSE [id number] 19:59:00 Test Item Value Reference Range Interpretation Comments POC-GLUCOSE METER 196 mg/dL 70-110 H TESTED AT [place] [address] ([facility]) (test code = [facility] 1538) [address] POCT-GLUCOSE [id number] 18:17:00 Test Item Value Reference Range Interpretation Comments POC-GLUCOSE METER 150 mg/dL 70-110 H TESTED AT [place] [address] ([facility]) (test code = [employer] [facility] 1538) [address] POCT-GLUCOSE [id number] 13:12:00 Test Item Value Reference Range Interpretation Comments POC-GLUCOSE METER 96 mg/dL 70-[address] [facility] [address] ([facility]) (test code = [facility] [address] 1538) HGB/HCT (H&H) - STAT [id number] 12:01:00 Test Item Value Reference Range Interpretation Comments HEMOGLOBIN ([facility]) (test code = 8.9 g/dL 12.0-15.0 L 410) HEMATOCRIT ([facility]) (test code = 26.0 % 36.0-45.0 L 411) GLUCOSE-STAT [id number] 11:57:00 Test Item Value Reference Range Interpretation Comments GLUCOSE RANDOM ([facility]) (test code = 78 mg/dL 70-110 652) POTASSIUM-STAT [id number] 11:57:00 Test Item Value Reference Range Interpretation Comments POTASSIUM ([facility]) (test code = 5.5 meq/L 3.6-5.5 379) POCT-GLUCOSE [id number] 11:15:00 Test Item Value Reference Range Interpretation Comments POC-GLUCOSE METER 64 mg/dL 70-110 L Notified R Rita SHAH/TESTED AT ([facility]) (test code = [facility] 7[address] 0 MRI THORACIC WOCLINICAL INDICATION: M54.6 Pain in thoracic spineMODALITY: 1.5 Anais SiemensTECHNIQUE: Multiplanar SE and FSE evaluation of the thoracic region was performed without contrast enhancement.IMPRESSION:1. Normal thoracic spinal cord.2. Normal preservation of vertebral height and disc height through out the thoracic column.3. There are very shallow disc protrusions from T6-T7 to T8-T9 minimally effacing the CSF column without central canal or foraminal narrowing.4. Posterior elements are intact.5. Benign hemangiomas in the the bodies of the T8 and T9.FINDINGS:COMPARISON: noneThere is normal thoracic kyphosis and alignment.There is uniform preservation of vertebral body height and disc space height. There is a 1.2 cm hemangioma in the body of T10 and a 0.7 cm hemangioma in the body of T8 Thereare very shallow disc protrusions minimally effacing the CSF column at T6-T7, T7-T8 and T8-T9. No evidence of central canal or foraminal stenosis. Posterior elements are intact. No significant facet art hrosis.Vertebral body heights are well maintained. There are no fractures or destructive osseous lesions. There is no pathologic bone marrow signal intensity. There are no paraspinous or prevertebral soft tissue masses. There are no pleural effusions.The thoracic spinal cord is normal without intramedu llary, intradural or extradural lesion. There is no pathologic signal intensity in the thoracic spinal cord. Conus medullaris and cauda equina are normal. Conus terminates at T12-L1.CHEST XR 2 VIEWSCLINICAL INDICATION: R07.9 Chest pain, unspecifiedTECHNIQUE: PA and lateral chest.FINDINGS: Comparison study: noneThe lungs are clear. The costophrenic sulci are sharp.The heart and lorelei are unremarkable. Vascularity is normal. The regional skeleton is intact.IMPRESSION:No evidence of acute cardiopulmonary disease.
[2020-10-28] MEDS ORDERED: ONDANSETRON 4 MG (ODT) TAB ONE (16:14)
[2020-10-28] MEDS ORDERED: HYDROMORPHONE HCL 1 MG/ML INJ ONE (16:14)
--- NOTE | 2020-10-28 16:50 | RAD REPORT ---
EXAM DESCRIPTION: RAD - Chest Single View - 10/28/2020 4:37 pm CLINICAL HISTORY: CHEST PAINfollowing fall COMPARISON: July 2016, July 2012 TECHNIQUE: AP portable chest image was obtained 10/28/2020 4:37 pm . FINDINGS: No pulmonary contusion, mass or acute lung parenchymal process. Interstitial pattern sligh tly increased from the prior study. Double-lumen vascular access catheter is present on the right. Ca rdiac silhouette is enlarged and has increased from comparison. Vasculature centrally has increased a s well. No measurable pleural effusion and no pneumothorax. No gross traumatic rib injury seen. Dedic ated films would provide better sensitivity if warranted. Right clavicle head is concave at the artic ular margin and appears superiorly displaced. This may be postsurgical change and can be correlated w ith history. No acute aortic findings suspected. IMPRESSION: Cardiomegaly is present with mild vascular engorgement and increased interstitial densit y compared to prior imaging. Findings suggest a mild failure or volume overload but need correlation with clinical findings. No fo penny pneumonia changes are seen. No acute posttraumatic changes to the chest identified.
--- NOTE | 2020-10-28 16:53 | RAD REPORT ---
EXAM DESCRIPTION: Shoulder Right 2 View - 10/28/2020 4:37 pm CLINICAL HISTORY: PAIN, fall COMPARISON: No comparisons TECHNIQUE: Internal and external rotation views of the right shoulder were obtained. FINDINGS: No acute fracture seen and no dislocation present. Minimal calcific tendinosis noted along the humeral head. The head of the clavicle has a concave contour at the articular surface. Clavicle appears minimally displaced superiorly from the expected location at the AC joint. AC joint changes may be postsurgical and need correlation with history. In the absence of surgery, an erosive arthriti s would be possible. A bone destructive process cannot be excluded in the absence of prior AC joint s urgery. IMPRESSION: No fracture or acute bone injury identified. Abnormality of the head of the clavicle at the AC joint is probably postsurgical. Neoplastic or more aggressive degenerative etiologies cannot be excluded if there has been no surgery at the AC joint.
--- NOTE | 2020-10-28 16:53 | RAD REPORT ---
EXAM DESCRIPTION: RAD - Knee Left 3 View - 10/28/2020 4:38 pm CLINICAL HISTORY: PAIN, fall COMPARISON: No comparisons FINDINGS: No fracture, dislocation or periosteal reaction.No joint effusion seen. No joint space curt rowing. No soft tissue abnormality. Arterial tree calcifications are present. IMPRESSION: Negative left knee for acute or emergent finding. Clinical concerns for internal derangement or occult bony injury could be further assessed with MR im aging.
--- NOTE | 2020-10-28 16:54 | RAD REPORT ---
EXAM DESCRIPTION: RAD - Sacrum And Coccyx - 10/28/2020 4:37 pm CLINICAL HISTORY: PAIN, fall COMPARISON: No comparisons FINDINGS: No fracture of the sacrum or coccyx identifiable. No presacral soft tissue thickening. The re are no lytic, sclerotic or expansile changes identifiable. Pubic symphysis degenerative changes are present. IUD is in place. IMPRESSION: No acute sacrum or coccyx finding.
--- NOTE | 2020-10-28 18:31 | ER ---
Nurse's Notes [facility] Name: Nina Kelley Age: 44 yrs Sex: Female : 1975 Arrival Date: 10/28/2020 Time: 13:26 Bed 15 Private MD: Diagnosis: Contusion of right shoulder;Unspecified injury of face and head;Pain in left knee;Contusion of lower back and pelvis-tailbone contusion;Fall from bed Presentation: 10/28 13:33 Chief complaint: Patient states: Rolled out of bed while sleeping this morning (about 4 ll1 feet). R face, R chest, R shoulder pain since. Has dialysis access to L chest, needs that checked also. L knee pain also. No LOC. No blood thinners. Coronavirus screen: Client denies travel out of the [place] in the last 14 days. At this time, the client does not indicate any symptoms associated with coronavirus-19. Ebola Screen: Patient denies travel to an Ebola-affected area in the 21 days before illness onset. Initial Sepsis Screen: Does the patient meet any 2 criteria? HR > 90 bpm. No. Patient's initial sepsis screen is negative. Does the patient have a suspected source of infection? Yes: Skin breakdown/wound. Risk Assessment: Do you want to hurt yourself or someone else? Patient reports no desire to harm self or others. Onset of symptoms was October 28, 2020. 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 Client reports receiving the 2nd dose of the Covid vaccine. - Social history:: Smoking status: Patient denies any tobacco usage or history of. Screenin:05 Abuse screen: Denies threats or abuse. Denies injuries from another. Nutritional ca1 screening: No deficits noted. Tuberculosis screening: No symptoms or risk factors identified. Fall Risk Fall in past 12 months (25 points). IV access (20 points). Gait- Weak (10 pts.). Total Starkey Fall Scale indicates High Risk Score (45 or more points). Fall prevention measures have been instituted. Side Rails Up X 2 Frequent Obs/Assessments Occuring Family Present and informed to notify staff if the need to leave the bedside As available patient and family educated on Fall Prevention Program and Strategies. Assessment: 15:05 General: Appears in no apparent distress. uncomfortable, Behavior is crying. Pain: ca1 Complains of pain in R side of head, R shoulder, R upper outer chest, L knee Pain currently is 10 out of 10 on a pain scale. Pain began this morning. Pain: Is continuous. Neuro: Level of Consciousness is awake, alert, obeys commands, Oriented to person, place, time, situation. Cardiovascular: Heart tones S1 S2 present Capillary refill < 3 seconds Patient's skin is warm and dry. Dialysis shunt: in the right clavicle, with palpable thrill, with auscultated bruit, with no erythema, with no edema, no bleeding noted. Respiratory: Airway is patent Respiratory effort is even, unlabored, Respiratory pattern is regular, symmetrical, Breath sounds are clear bilaterally. GI: Abdomen is round non-distended, Bowel sounds present X 4 quads. Abd is soft and non tender X 4 quads. : No signs and/or symptoms were reported regarding the genitourinary system. EENT: No signs and/or symptoms were reported regarding the EENT system. Derm: Skin is intact, is healthy with good turgor, Skin is pink, warm \T\ dry. Musculoskeletal: Circulation, motion, and sensation intact. Capillary refill < 3 seconds. 16:00 Reassessment: Patient appears in no apparent distress at this time. Patient and/or ca1 family updated on plan of care and expected duration. Pain level reassessed. Patient is alert, oriented x 3, equal unlabored respirations, skin warm/dry/pink. 17:13 Reassessment: Patient appears in no apparent distress at this time. Patient and/or ca1 family updated on plan of care and expected duration. Pain level reassessed. Patient is alert, oriented x 3, equal unlabored respirations, skin warm/dry/pink. 17:55 Reassessment: Patient appears in no apparent distress at this time. Patient and/or ca1 family updated on plan of care and expected duration. Pain level reassessed. Patient is alert, oriented x 3, equal unlabored respirations, skin warm/dry/pink. 18:03 Reassessment: Pt refused CT scans. ca1 19:00 Reassessment: Patient appears in no apparent distress at this time. Patient and/or ca1 family updated on plan of care and expected duration. Pain level reassessed. Patient is alert, oriented x 3, equal unlabored respirations, skin warm/dry/pink. 19:58 Reassessment: Patient appears in no apparent distress at this time. Patient is alert, ca1 oriented x 3, equal unlabored respirations, skin warm/dry/pink. Patient states feeling better. Vital Signs: 13:33 BP 154 / 78; Pulse 98; Resp 18; Temp 97.6; Pulse Ox 100% ; Weight 79.38 kg; Height 5 ll1 ft. 0 in. (152.40 cm); Pain 10/10; 15:23 BP 151 / 78; Pulse 66; Resp 18 S; Pulse Ox 92% on R/A; ca1 16:00 BP 154 / 84; Pulse 94; Resp 16 S; Pulse Ox 98% on R/A; ca1 17:00 BP 141 / 73; Pulse 89; Resp 16 S; Pulse Ox 96% on R/A; ca1 18:00 BP 147 / 81; Pulse 91; Resp 16 S; Pulse Ox 95% on R/A; ca1 19:00 BP 144 / 75; Pulse 86; Resp 18 S; Pulse Ox 95% on R/A; ca1 20:00 BP 145 / 86; Pulse 89; Resp 17 S; Pulse Ox 94% on R/A; ca1 13:33 Body Mass Index 34.18 (79.38 kg, 152.40 cm) ll1 ED Course: 13:26 Patient arrived in ED. bp1 13:35 Triage completed. ll1 13:37 Arm band placed on. ll1 14:58 Patient placed in an exam room, on a stretcher. ll1 15:05 Patient has correct armband on for positive identification. Bed in low position. Call ca1 light in reach. Side rails up X2. environmental health safety manager on. Pulse ox on. NIBP on. Warm blanket given. 15:05 No provider procedures requiring assistance completed. ca1 15:18 Tabitha Gomez, ABBI is Primary Nurse. ca1 15:24 Timothy Covington NP is PHCP. pm1 15:24 José Miguel Tariq MD is Attending Physician. pm1 16:37 Shoulder Right (2 View) XRAY In Process Unspecified. EDMS 16:37 Knee Left 3 View XRAY In Process Unspecified. EDMS 16:37 Sacrum And Coccyx XRAY In Process Unspecified. EDMS 16:37 Chest Single View XRAY In Process Unspecified. EDMS 20:00 Patient did not have IV access during this emergency room visit. ca1 Administered Medications: 15:54 Drug: Zofran (Ondansetron) 4 mg Route: PO; ca1 20:01 Follow up: Response: No adverse reaction; Nausea is decreased ca1 15:56 Drug: Dilaudid (HYDROmorphone) 1 mg {Note: rass 1.} Route: IM; Site: right gluteus; ca1 19:00 Follow up: Response: No adverse reaction; Pain is decreased; RASS: Alert and Calm (0) ca1 19:14 Drug: Ativan (LORazepam) 0.5 mg Route: PO; ca1 20:01 Follow up: Response: No adverse reaction ca1 Outcome: 18:31 Discharge ordered by . pm1 20:00 Discharged to home via wheelchair, with significant other. ca1 20:00 Condition: stable 20:00 Discharge instructions given to patient, significant other, Instructed on discharge instructions, follow up and referral plans. no drinking with medication, no driving heavy equipment, medication usage, Demonstrated understanding of instructions, follow-up care, medications, Prescriptions given X 1. 20:01 Patient left the ED. ca1 Signatures: Dispatcher [employer] EDMS Timothy Covington NP FABRIC COATING SUPERVISOR pm1 Tabitha Gomez RN RN ca1 Tip Gold RN RN ll1 Marisa Savage [facility]
--- NOTE | 2020-10-28 18:32 | EDPHYS ---
Physician Documentation [facility] Name: Nina Kelley Age: 44 yrs Sex: Female : 1975 Arrival Date: 10/28/2020 Time: 13:26 Bed 15 Private MD: ED Physician José Miguel Tariq HPI: 10/28 15:43 This 44 yrs old Female presents to ER via Ambulatory with complaints of Fall pm1 Injury. 15:43 Details of fall: The patient fell from a height, bed about 3 feet high. Onset: The pm1 symptoms/episode began/occurred this morning. Associated injuries: The patient sustained injury to the head, contusion, to the right side, coccyx, pain, posterior aspect of right shoulder, contusion, pain, left knee, pain. The patient has not experienced similar symptoms in the past. The patient has not recently seen a physician. Negative LOC. Patient reports rolling off the bed and waking up on the floor. Patient landed on her right side and is presenting with pain to the right ride of head and neck, right posterior aspect of shoulder, left knee, and her tailbone. 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 Client reports receiving the 2nd dose of the Covid vaccine. - Social history:: Smoking status: Patient denies any tobacco usage or history of. ROS: 15:43 Constitutional: Negative for fever, chills, and weight loss, Eyes: Negative for injury, pm1 pain, redness, and discharge, ENT: Negative for injury, pain, and discharge. 15:43 Cardiovascular: Negative for chest pain, palpitations, and edema, Respiratory: Negative for shortness of breath, cough, wheezing, and pleuritic chest pain, Abdomen/GI: Negative for abdominal pain, nausea, vomiting, diarrhea, and constipation. 15:43 : Negative for injury, bleeding, discharge, and swelling. 15:43 Skin: Negative for injury, rash, and discoloration. 15:43 Neck: Positive for tenderness, of the right trapezius. 15:43 Back: Positive for of the sacrum, pain. 15:43 MS/extremity: Positive for pain, of the left knee and posterior aspect of right shoulder, Negative for decreased range of motion, deformity. 15:43 Neuro: Positive for headache. Exam: 15:43 Constitutional: This is a well developed, well nourished patient who is awake, alert, pm1 and in no acute distress. 15:43 Back: No spinal tenderness. No costovertebral tenderness. Full range of motion. Skin: Warm, dry with normal turgor. Normal color with no rashes, no lesions, and no evidence of cellulitis. 15:43 Head/face: Noted is no obvious of injury or deformity except tenderness, that is mild, of the right cheek and nose. 15:43 Eyes: Exam is negative for acute changes, Periorbital structures: swelling, is not appreciated, contusion, is not appreciated. 15:43 ENT: Exam is negative for acute changes, Ear canal(s): are normal, TM's: are normal, Mouth: Lips: normal, Oral mucosa: normal, pink and intact, moist. 15:43 Neck: External neck: tenderness, of the right trapezius, C-spine: vertebral tenderness, is not appreciated. 15:43 Chest/axilla: Inspection: Feliz port intact. 15:43 Cardiovascular: Rate: normal, Rhythm: regular, Pulses: no pulse deficits are appreciated. 15:43 Respiratory: Exam negative for acute changes, respiratory distress, shortness of breath. 15:43 Musculoskeletal/extremity: Extremities: grossly normal except: noted in the left knee: tenderness, There is no evidence of decreased ROM, swelling, noted in the posterior aspect of right shoulder: contusion. 15:43 Neuro: Exam negative for acute changes, Orientation: is normal, Mentation: is normal, Motor: is normal, moves all fours, Sensation: is normal, no obvious gross deficits. Vital Signs: 13:33 BP 154 / 78; Pulse 98; Resp 18; Temp 97.6; Pulse Ox 100% ; Weight 79.38 kg; Height 5 ll1 ft. 0 in. (152.40 cm); Pain 10/10; 15:23 BP 151 / 78; Pulse 66; Resp 18 S; Pulse Ox 92% on R/A; ca1 16:00 BP 154 / 84; Pulse 94; Resp 16 S; Pulse Ox 98% on R/A; ca1 17:00 BP 141 / 73; Pulse 89; Resp 16 S; Pulse Ox 96% on R/A; ca1 18:00 BP 147 / 81; Pulse 91; Resp 16 S; Pulse Ox 95% on R/A; ca1 19:00 BP 144 / 75; Pulse 86; Resp 18 S; Pulse Ox 95% on R/A; ca1 20:00 BP 145 / 86; Pulse 89; Resp 17 S; Pulse Ox 94% on R/A; ca1 13:33 Body Mass Index 34.18 (79.38 kg, 152.40 cm) ll1 MDM: 15:28 Patient medically screened. cortes 16:49 Refusal of service: The patient/guardian displays adequate decision making capability pm1 and despite a detailed discussion of alternatives, benefits, risks, and consequences refuses: CT Scan, informed by CT technicians that the patient did not want to get any of her CT scans due to anxiety. 17:32 Data reviewed: vital signs. Data interpreted: Pulse oximetry: on room air is 98 %. pm1 Interpretation: normal. 18:27 Refusal of service: The patient/guardian displays adequate decision making capability pm1 and despite a detailed discussion of alternatives, benefits, risks, and consequences refuses: Patient still does not want to get the CT of head, neck, and face. She was satisfied with the x-rays performed and said that she will come back if she has any issues related to the head face and neck. 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 18:36 ED course: Patient requesting medications for anxiety. pm1 10/28 15:42 Order name: Shoulder Right (2 View) XRAY; Complete Time: 17:28 pm1 10/28 15:42 Order name: Knee Left 3 View XRAY; Complete Time: 17:28 pm1 10/28 15:42 Order name: Sacrum And Coccyx XRAY; Complete Time: 17:28 pm1 10/28 15:43 Order name: Chest Single View XRAY; Complete Time: 17:28 pm1 10/28 18:29 Order name: Sling; Complete Time: 19:58 pm1 10/28 18:29 Order name: Knee Immobilizer; Complete Time: 19:59 pm1 Administered Medications: 15:54 Drug: Zofran (Ondansetron) 4 mg Route: PO; ca1 20:01 Follow up: Response: No adverse reaction; Nausea is decreased ca1 15:56 Drug: Dilaudid (HYDROmorphone) 1 mg {Note: rass 1.} Route: IM; Site: right gluteus; ca1 19:00 Follow up: Response: No adverse reaction; Pain is decreased; RASS: Alert and Calm (0) ca1 19:14 Drug: Ativan (LORazepam) 0.5 mg Route: PO; ca1 20:01 Follow up: Response: No adverse reaction ca1 Disposition: 10/29 07:33 Co-signature as Attending Physician, José Miguel Tariq MD I agree with the assessment and cortes plan of care. Disposition: 10/28/20 18:31 Discharged to Home. Impression: Contusion of right shoulder, Unspecified injury of face and head, Pain in left knee, Contusion of lower back and pelvis - tailbone contusion, Fall from bed. - Condition is Stable. - Discharge Instructions: Contusion, Head Injury, Adult, Fall Prevention in the Home, Knee Immobilizer, Knee Pain, How to Use a Sling. - Prescriptions for Tramadol 50 mg Oral Tablet - take 1 tablet by ORAL route every 12 hours As needed as needed; 10 tablet. - Medication Reconciliation Form, Thank You Letter, Antibiotic Education, Prescription Opioid Use form. - Follow up: Emergency Department; When: As needed; Reason: Worsening of condition. Follow up: Private Physician; When: 2 - 3 days; Reason: Recheck today's complaints, Continuance of care, Re-evaluation by your physician. - Problem is new. - Symptoms have improved. Signatures: Dispatcher [employer] EDJosé Miguel Mendoza MD MD cha Marinas, Patrick, SENIOR SOFTWARE TEST ENGINEER SENIOR SOFTWARE TEST ENGINEER pm1 Tabitha Gomez RN RN ca1 Tip Gold RN RN ll1 Corrections: (The following items were deleted from the chart) 10/28 18:12 15:42 Head C Spine MPR Wo Con+CT.RAD.BRZ ordered. EDRI EDMS 18:13 15:42 Facial Bones W/ MPR+CT.RAD.BRZ ordered. EDRI EDMS 20:01 18:31 10/28/2020 18:31 Discharged to Home. Impression: Contusion of right shoulder; ca1 Unspecified injury of face and head; Pain in left knee; Contusion of lower back and pelvis - tailbone contusion; Fall from bed. Condition is Stable. Forms are Medication Reconciliation Form, Thank You Letter, Antibiotic Education, Prescription Opioid Use. Follow up: Emergency Department; When: As needed; Reason: Worsening of condition. Follow up: Private Physician; When: 2 - 3 days; Reason: Recheck today's complaints, Continuance of care, Re-evaluation by your physician. Problem is new. Symptoms have improved. pm1
[2020-10-28] MEDS ORDERED: LORAZEPAM 0.5 MG TABLET ONE (19:33)
[2020-10-28 20:06] VITALS: TEMP 97.6
[2020-10-28 20:14] VITALS: BP 145/86; O2SAT 94
== END 2020-10-28 20:01 | disposition home or self-care (01) ==
LOC: ER 13:25
DX: S30.0XXA Contusion of lower back and pelvis, initial encounter (principal); S40.011A Contusion of right shoulder, initial encounter; S09.93XA Unspecified injury of face, initial encounter; S09.90XA Unspecified injury of head, initial encounter; W06.XXXA Fall from bed, initial encounter; Z99.2 Dependence on renal dialysis
CPT/HCPCS: 71045; 72220; 73030; 73562; 96372; 99284; J1170

== ENCOUNTER 2020-11-11 19:33 | Emergency (ER) | payer OTHER ==
[2020-11-11] MEDS ORDERED: MORPHINE 4 MG/ML SYR ONE (23:35)
[2020-11-11] MEDS ORDERED: ONDANSETRON 4 MG/2 ML VIAL ONE (23:35)
[2020-11-12] MEDS ORDERED: LORazepam 2 MG/ML VIAL ONE (00:05)
[2020-11-12 00:10] LABS: Albumin 3.2 g/dL (3.4-5.0); Bilirubin Direct 0.1 mg/dL (0-0.2); Bilirubin Total 0.4 mg/dL (0.2-1.0); Magnesium 2.4 mg/dL (1.8-2.4); Potassium 3.8 mmol/L (3.5-5.1); Protein, Total 8.2 g/dL (6.4-8.2)
[2020-11-12] MEDS ORDERED: HYDROMORPHONE HCL 1 MG/ML INJ ONE (00:25)
[2020-11-12 00:31] LABS: Absolute Lymphocytes (CBC) 1.6 K/uL (0.7-4.9); Basophils % 0.4 % (0-1.3); Hematocrit 30.9 % (36.0-45.0); MPV 9.2 fL (7.6-11.3); RBC Red Blood Cell Count 2.82 M/uL (3.86-4.86)
--- NOTE | 2020-11-12 00:44 | EDPHYS ---
Physician Documentation [facility] Name: Nina Kelley Age: 44 yrs Sex: Female : 1975 Arrival Date: 11/11/2020 Time: 19:36 Bed 6 Private MD: ED Physician John Pereyra HPI: 11/12 00:40 This 44 yrs old Female presents to ER via Ambulatory with complaints of ma2 Anxiety, Congestion. 00:40 Onset: The symptoms/episode began/occurred gradually, 2 week(s) ago. Severity of ma2 symptoms: At their worst the symptoms were mild in the emergency department the symptoms are unchanged. The patient has experienced similar episodes in the past. 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 - Social history:: Smoking status: Patient denies any tobacco usage or history of. - Family history:: not pertinent. ROS: 11/12 00:40 Constitutional: Negative for fever, chills, and weight loss. ma2 All other systems are negative. Exam: 00:40 Constitutional: This is a well developed, well nourished patient who is awake, alert, ma2 and in no acute distress. Head/Face: Normocephalic, atraumatic. Eyes: Pupils equal round and reactive to light, extra-ocular motions intact. Lids and lashes normal. Conjunctiva and sclera are non-icteric and not injected. Cornea within normal limits. Periorbital areas with no swelling, redness, or edema. ENT: Nares patent. No nasal discharge, no septal abnormalities noted. Tympanic membranes are normal and external auditory canals are clear. Oropharynx with no redness, swelling, or masses, exudates, or evidence of obstruction, uvula midline. Mucous membranes moist. Neck: Trachea midline, no thyromegaly or masses palpated, and no cervical lymphadenopathy. Supple, full range of motion without nuchal rigidity, or vertebral point tenderness. No Meningismus. Chest/axilla: Normal chest wall appearance and motion. Nontender with no deformity. No lesions are appreciated. Cardiovascular: Regular rate and rhythm with a normal S1 and S2. No gallops, murmurs, or rubs. Normal PMI, no JVD. No pulse deficits. Respiratory: Lungs have equal breath sounds bilaterally, clear to auscultation and percussion. No rales, rhonchi or wheezes noted. No increased work of breathing, no retractions or nasal flaring. Abdomen/GI: Soft, non-tender, with normal bowel sounds. No distension or tympany. No guarding or rebound. No evidence of tenderness throughout. Back: No spinal tenderness. No costovertebral tenderness. Full range of motion. Female : Normal external genitalia. Skin: Warm, dry with normal turgor. Normal color with no rashes, no lesions, and no evidence of cellulitis. MS/ Extremity: has right finger tip cellulitis no ingrawing nail or abscess, otherwise, Pulses equal, no cyanosis. Neurovascular intact. Full, normal range of motion. Neuro: Awake and alert, GCS 15, oriented to person, place, time, and situation. Cranial nerves II-XII grossly intact. Motor strength 5/5 in all extremities. Sensory grossly intact. Cerebellar exam normal. Normal gait. Vital Signs: 11/11 20:20 BP 157 / 90; Pulse 92; Resp 18; Temp 97.8(TE); Pulse Ox 100% on R/A; Weight 77.11 kg lp1 (R); Height 5 ft. 0 in. (152.40 cm); Pain 0/10; 23:10 BP 170 / 90; Pulse 88; Resp 18; Pulse Ox 99% ; ea 11/12 00:15 BP 128 / 64; Pulse 80; Resp 16; Pulse Ox 98% ; ea 11/11 20:20 Body Mass Index 33.20 (77.11 kg, 152.40 cm) lp1 MDM: 11/11 22:41 Patient medically screened. ma2 11/12 00:40 Differential Diagnosis anxiety, no si hi or avh. Data reviewed: vital signs, nurses ma2 notes. Counseling: I had a detailed discussion with the patient and/or guardian regarding: the historical points, exam findings, and any diagnostic results supporting the discharge/admit diagnosis, the presence of at least one elevated blood pressure reading (>120/80) during this emergency department visit, the need for outpatient follow up. Response to treatment: the patient's symptoms have markedly improved after treatment. 11/11 23:11 Order name: Basic Metabolic Panel [facility] 11/11 23:11 Order name: CBC with Diff [facility] 11/11 23:11 Order name: LFT's [facility] 11/11 23:11 Order name: Magnesium [facility] 11/11 23:12 Order name: Basic Metabolic Panel; Complete Time: 00:39 EDMS 11/11 23:12 Order name: Liver (Hepatic) Function; Complete Time: 00:39 EDMS 11/11 23:11 Order name: IV Saline Lock; Complete Time: 23:50 [facility] 11/11 23:12 Order name: Magnesium; Complete Time: 00:39 EDMS 11/12 00:32 Order name: CBC Smear Scan EDMS Administered Medications: 11/11 23:20 Drug: Zofran (Ondansetron) 4 mg Route: IVP; Site: left forearm; ea 11/12 00:11 Follow up: Response: No adverse reaction 11/11 23:50 Drug: Ativan (LORazepam) 1 mg Route: IVP; Site: left forearm; ea 11/12 00:03 Not Given (Other Intervention Used): morphine 4 mg IVP once; RASS on ADMIN: Combtv4, ea Very Agttd3, Agttd2, Rstlss1, AlertClm0, Drwsy-1, Lt Sdtn-2, Mod Sdtn-3, Dp Sdtn-4, UnArsble-5 00:09 Drug: Dilaudid (HYDROmorphone) 1 mg Route: IVP; Site: left forearm; ea Disposition: 11/12/20 00:43 Discharged to Home. Impression: Anxiety disorder, unspecified. - Condition is Stable. - Discharge Instructions: Generalized Anxiety Disorder. - Prescriptions for buspirone 5 mg Oral tablet - take 1 tablet by ORAL route 3 times per day; 60 tablet. Clindamycin HCl 300 mg Oral Capsule - take 1 capsule by ORAL route every 6 hours for 10 days; 40 capsule. Tramadol 50 mg Oral Tablet - take 1 tablet by ORAL route every 8 hours as needed; 12 tablet. - Medication Reconciliation Form, Thank You Letter, Antibiotic Education, Prescription Opioid Use form. - Follow up: Private Physician; When: Tomorrow; Reason: If symptoms return. Signatures: Dispatcher [employer] EDGloria Cabrera RN RN lp1 Kirstie Vang RN RN John Sanchez MD MD ma2 Evaristo Bucio RN RN rr5 Corrections: (The following items were deleted from the chart) 01:11 00:43 11/12/2020 00:43 Discharged to Home. Impression: Anxiety disorder, unspecified. rr5 Condition is Stable. Prescriptions for buspirone 5 mg Oral tablet - take 1 tablet by ORAL route 3 times per day; 60 tablet, Clindamycin HCl 300 mg Oral Capsule - take 1 capsule by ORAL route every 6 hours for 10 days; 40 capsule. and Forms are Medication Reconciliation Form, Thank You Letter, Antibiotic Education, Prescription Opioid Use. Follow up: Private Physician; When: Tomorrow; Reason: If symptoms return. ma2
--- NOTE | 2020-11-12 00:44 | ER ---
Nurse's Notes [facility] Name: Nina Kelley Age: 44 yrs Sex: Female : 1975 Arrival Date: 11/11/2020 Time: 19:36 Bed 6 Private MD: Diagnosis: Anxiety disorder, unspecified Presentation: 11/11 20:16 Chief complaint: Patient states: "I am having a lot of congestion and anxiety and it is lp1 getting worse and worse every day"; Reports PCP appt in 2 weeks but cannot tolerate anxiety. Reports feeling like she cannot breath, gets hot, begins crying for no reason, has been going on for about 2 weeks and feels it is worsening. Reports recent transition from peritoneal dialysis to hemodialysis and gets very anxious during treatments; Reports Xanax prescription is not giving her any relief; recent loss of vision that has made her more anxious. Coronavirus screen: Client denies travel out of the [place] in the last 14 days. At this time, the client does not indicate any symptoms associated with coronavirus-19. Ebola Screen: No symptoms or risks identified at this time. Risk Assessment: Do you want to hurt yourself or someone else? Patient reports no desire to harm self or others. Onset of symptoms was November 11, 2020. 20:16 Method Of Arrival: Ambulatory lp1 20:16 Acuity: ADELITA 3 lp1 20:20 Initial Sepsis Screen: Does the patient meet any 2 criteria? No. Patient's initial lp1 sepsis screen is negative. Does the patient have a suspected source of infection? No. Patient's initial sepsis screen is negative. 20:24 Note Requesting to have right middle finger checked, feels like she may have an ingrown lp1 nail. 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 - Social history:: Smoking status: Patient denies any tobacco usage or history of. - Family history:: not pertinent. Screenin:23 Abuse screen: Denies threats or abuse. Denies injuries from another. Nutritional lp1 screening: No deficits noted. Tuberculosis screening: No symptoms or risk factors identified. 23:03 Fall Risk None identified. ea Assessment: 23:02 General: Appears in no apparent distress. Behavior is calm, cooperative, appropriate ea for age. Pain: Denies pain. Neuro: Level of Consciousness is awake, alert, obeys commands, Oriented to person, place, time. Cardiovascular: Patient's skin is warm and dry. Respiratory: Airway is patent Respiratory effort is even, unlabored, Respiratory pattern is regular, symmetrical. Derm: Skin is dry, Skin is pale, Skin temperature is warm. 11/12 00:11 Reassessment: Patient and/or family updated on plan of care and expected duration. Pain ea level reassessed. Patient is alert, oriented x 3, equal unlabored respirations, skin warm/dry/pink. Patient states feeling better. Vital Signs: 11/11 20:20 BP 157 / 90; Pulse 92; Resp 18; Temp 97.8(TE); Pulse Ox 100% on R/A; Weight 77.11 kg lp1 (R); Height 5 ft. 0 in. (152.40 cm); Pain 0/10; 23:10 BP 170 / 90; Pulse 88; Resp 18; Pulse Ox 99% ; ea 11/12 00:15 BP 128 / 64; Pulse 80; Resp 16; Pulse Ox 98% ; ea 11/11 20:20 Body Mass Index 33.20 (77.11 kg, 152.40 cm) lp1 ED Course: 11/11 19:36 Patient arrived in ED. am2 20:20 Triage completed. lp1 20:20 Arm band placed on left wrist. lp1 22:41 John Pereyra MD is Attending Physician. ma2 23:02 Kirstie Vang RN is Primary Nurse. ea 23:02 Patient has correct armband on for positive identification. Bed in low position. Call ea light in reach. Administered Medications: 23:20 Drug: Zofran (Ondansetron) 4 mg Route: IVP; Site: left forearm; ea 11/12 00:11 Follow up: Response: No adverse reaction ea 11/11 23:50 Drug: Ativan (LORazepam) 1 mg Route: IVP; Site: left forearm; ea 11/12 00:03 Not Given (Other Intervention Used): morphine 4 mg IVP once; RASS on ADMIN: Combtv4, ea Very Agttd3, Agttd2, Rstlss1, AlertClm0, Drwsy-1, Lt Sdtn-2, Mod Sdtn-3, Dp Sdtn-4, UnArsble-5 00:09 Drug: Dilaudid (HYDROmorphone) 1 mg Route: IVP; Site: left forearm; ea Outcome: 00:43 Discharge ordered by MD. parra 01:11 Patient left the ED. rr5 Signatures: Gloria Francisco, RN RN lp1 Nasima Avelar Elena, RN RN ea Alzahri, Mohammad, MD MD ma2 Roque, Raymond, RN RN rr5
[2020-11-12 01:39] LABS: Blood Morphology Comment NOTED (NOT SEEN); Macrocytosis 1+; Platelet Estimate ADEQ; White Blood Cell Scan OK (OK)
[2020-11-12 01:50] VITALS: TEMP 97.8
[2020-11-12 01:53] VITALS: BP 128/64; O2SAT 98
== END 2020-11-12 01:11 | disposition home or self-care (01) ==
LOC: ER 19:33
DX: F41.9 Anxiety disorder, unspecified (principal); E11.40 Type 2 diabetes mellitus with diabetic neuropathy, unspecified
CPT/HCPCS: 85025; 80048; 36415; 83735; 80076; J1170; J2405; 96374; 96375; 99283

== ENCOUNTER 2021-03-25 21:42 | Inpatient (IN) | payer OTHER ==
[2021-03-25] MEDS ORDERED: FAMOTIDINE 20 MG/2 ML VIAL IV ONE (22:19)
[2021-03-25] MEDS ORDERED: NA CHLORIDE 0.9% 1,000 ML ONE (22:19)
[2021-03-25] MEDS ORDERED: ONDANSETRON 4 MG/2 ML VIAL ONE ×2 (22:19→22:48)
[2021-03-25] MEDS ORDERED: ASPIRIN EC 81 MG TAB PO ONE (22:19)
[2021-03-25 22:32] LABS: Absolute Lymphocytes (CBC) 1.1 K/uL (0.7-4.9); Basophils % 0.7 % (0-1.3); Hematocrit 32.1 % (36.0-45.0); Lymphocytes % 9.5 % (15.3-44.8); MPV 9.2 fL (7.6-11.3); Protime INR 1.04; RBC Red Blood Cell Count 3.46 M/uL (3.86-4.86)
[2021-03-25] MEDS ORDERED: LORazepam 2 MG/ML VIAL ONE (23:02)
[2021-03-25] MEDS ORDERED: MORPHINE 2 MG/ML SYR ONE (23:03)
[2021-03-25 23:06] LABS: ALT/SGPT 24 U/L (12-78); AST/SGOT 17 U/L (15-37); Albumin 3.6 g/dL (3.4-5.0); Alkaline Phosphatase 119 U/L (45-117); BUN Blood Urea Nitrogen 20 mg/dL (7-18); Bicarbonate 29 mmol/L (21-32); Bilirubin Direct 0.2 mg/dL (0-0.2); Bilirubin Total 0.8 mg/dL (0.2-1.0); Glucose Level 283 mg/dL (74-106); Lipase 120 U/L (73-393); Magnesium 2.1 mg/dL (1.8-2.4); NT PRO-BNP 61801 pg/mL (<125); Potassium 3.2 mmol/L (3.5-5.1); Protein, Total 8.8 g/dL (6.4-8.2); Sodium Level 139 mmol/L (136-145); Troponin (Emerg Dept Use Only) < 0.02 ng/mL (0.0-0.045)
[2021-03-25] MEDS ORDERED: HYDROMORPHONE HCL 1 MG/ML INJ ONE (23:07)
[2021-03-26 02:06] LABS: SARS-COV-2 RT PCR NEGATIVE (NEGATIVE)
--- NOTE | 2021-03-26 03:09 | P.HP ---
Certification for Inpatient Patient admitted to: Observation With expected LOS: <2 Midnights Patient will require the following post-hospital care: None Practitioner: I am a practitioner with admitting privileges, knowledge of patient current condition, hospital course, and medical plan of care. Services: Services provided to patient in accordance with Admission requirements found in Title 42 Section 412.3 of the Code of Federal Regulations Patient History Date of Service: 03/26/21 Primary Care Provider: Out of town Reason for admission: Chest pain History of Present Illness: 45-year-old female with history of diabetes mellitus type 2, ESRD on HD MWF, blindness presents emerge department for chest pain. Patient reports that her chest pain began after receiving dialysis at home today. Pain is described as pressure/sharp radiating to the abdomen. Patient was evaluated in the emergency department labs are significant for white blood cell count 11.4 hemoglobin 10.8 hematocrit 32.1 potassium 3.2 creatinine 4.94 GFR 9 BUN 20 glucose 283 BNP 61,801 Covid test negative urinalysis pending CT abdomen pelvis without contrast negative for any acute findings initial troponin negative EKG without signs of STEMI. ED prior wishes to admit under observation for chest pain. Allergies No Known Allergies Allergy (Unverified 07/27/12 09:24) - Past Medical/Surgical History -: Diabetes type 2 -: ESRD on HDMWF -: Blindness -: Retinal detachment -: Peritoneal dialysis catheter Psychosocial/ Personal History: Patient lives at home with her son - Family History Father -: Heart disease, Diabetes - Social History Smoking Status: Never smoker Alcohol use: No CD- Drugs: No Caffeine use: Yes Place of Residence: Home Review of Systems 10-point ROS is otherwise unremarkable General: Weakness, Malaise Cardiovascular: Chest Pain Gastrointestinal: Nausea, Vomiting, Abdominal Pain Physical Examination - Physical Exam General: Alert, In no apparent distress, Oriented x3 HEENT: Atraumatic, PERRLA, Mucous membr. moist/pink, EOMI, Sclerae nonicteric Neck: Supple, 2+ carotid pulse no bruit, No LAD, Without JVD or thyroid abnormality Respiratory: Clear to auscultation bilaterally, Normal air movement Cardiovascular: Regular rate/rhythm, Normal S1 S2 Capillary refill: <2 Seconds Gastrointestinal: Normal bowel sounds, No tenderness Musculoskeletal: No tenderness Integumentary: No rashes Neurological: Normal speech, Normal strength at 5/5 x4 extr, Normal tone, Normal affect - Studies Laboratory Data (last 24 hrs) 03/25/21 23:00: PT 12.0, INR 1.04 03/25/21 23:00: WBC 11.40 H, Hgb 10.8 L, Hct 32.1 L, Plt Count 209 03/25/21 23:00: Sodium 139, Potassium 3.2 L, BUN 20 H, Creatinine 4.94 H, Glucose 283 H, Magnesium 2.1, Total Bilirubin 0.8, AST 17, ALT 24, Alkaline Phosphatase 119 H, Lipase 120 Assessment and Plan - Plan Assessment: Chest pain rule out ACS Abdominal pain with nausea/vomiting Diabetes mellitus type 2 with hyperglycemia ESRD on HD MWF Blindness Plan: Chest pain rule out ACS: Trend troponins, monitor on telemetry, cardiology consulted continue with aspirin, statin, beta-shonda therapy. Obtain lipid/thyroid panel. Abdominal pain with nausea/vomiting: Daily Protonix, as needed antiemetics, CT negative for any acute findings. As needed pain medications. Diabetes mellitus type 2 with hyperglycemia: Obtain and continue medication, AC at bedtime Accu-Chek, sliding scale insulin ESRD on HD MWF: Nephrology consulted for assistance in management of dialysis/volume status. Blindness: Patient completely blind, communicates well verbally though. DVT PPX: Heparin Code status: Full Discharge Plan: Home Plan to discharge in: 24 Hours - Advance Directives Does patient have a Living Will: No Does patient have a Durable POA for Healthcare: No - Code Status/Comfort Care Code Status Assessed: Yes (Full code) Critical Care: No Time Spent Managing Pts Care (In Minutes): 55
[2021-03-26] MEDS ORDERED: MORPHINE 2 MG/ML SYR IV PRN (03:24)
[2021-03-26] MEDS ORDERED: SODIUM CHLORIDE 0.9% 10ML INJ IV PRN (03:24)
[2021-03-26] MEDS ORDERED: PROMETHAZINE INJ 25 MG/ML AMP ONE (03:52)
[2021-03-26 05:51] LABS: HDL Cholesterol 34 mg/dL (40-60); LDL Cholesterol, Calculated 122 (<130); Thyroid Stimulating Hormone 0.605 uIU/mL (0.360-3.740); Troponin I < 0.02 ng/mL (0.0-0.045)
[2021-03-26] MEDS ORDERED: METOPROLOL TAR 25 MG TAB PO SCH (06:00)
[2021-03-26] MEDS ORDERED: INSULIN -REGULAR HUMAN 50 UNIT/0.5 ML ML SQ SCH (07:30)
--- NOTE | 2021-03-26 08:04 | RAD REPORT ---
EXAM DESCRIPTION: Daniela Single View03/26/2021 1:12 am CLINICAL HISTORY: Chest pain COMPARISON: September 2020 FINDINGS: Mild bilateral pulmonary opacities. The heart is mildly enlarged. A central venous cathete r in place IMPRESSION: These findings probably indicate mild interstitial pulmonary edema
[2021-03-26] MEDS ORDERED: PANTOPRAZOLE 40 MG INJ IVP SCH (09:00)
[2021-03-26] MEDS ORDERED: GLUCAGON 1 MG/VIAL IM PRN (09:55)
[2021-03-26] MEDS ORDERED: D50W 25 GM/50 ML SYRINGE IV PRN (09:55)
--- NOTE | 2021-03-26 09:58 | P.DS ---
Admission Date: 03/26/21 Discharge Date: 03/26/21 Primary Care Provider: Out of town Disposition: ROUTINE DISCHARGE Discharge Condition: GOOD Reason for Admission: Chest pain Consultations: Cardiology-Dr. Travis Nephrology-Dr. Santillan Procedures: COVID: Negative CXR: CT scan AB/Pelvis: Medical Problem List: Chest pain rule out ACS Abdominal pain with nausea/vomiting Diabetes mellitus type 2 with hyperglycemia ESRD on HD MWF Blindness Brief History of Present Illness: 45 yo female with history of diabetes mellitus type 2, ESRD on hemodialysis every MWF, and blindness presented with chest pain. Patient re ports that her chest pain began after receiving dialysis at home. Pain is described as pressure/sharp radiating to the abdomen. Patient was evaluated in the emergency department. Labs show white blood cell count 11.4 hemoglobin 10.8 hematocrit 32.1 potassium 3.2 creatinine 4.94 GFR 9 BUN 20 glucose 283 BNP 61,[address] abdomen pelvis without contrast negative for any acute findings. Initial troponin negative, EKG without signs of STEMI. Patient admitted for observation. Hospital Course: Patient presented with chest pain. Patient was evaluated. Cardiac enzymes unremarkable. Patient was seen and evaluated by cardiology. No intervention required at this time. Recommend follow-up with cardiology as an outpatient to further address and evaluate. Patient may require outpatient cardiac stress test to further address. Patient presented with abdominal pain with nausea and vomiting. Suspect underlying GERD. CT scan of the abdomen unremarkable. Patient was started on medication Protonix. Recommend to continue Protonix 40 mg daily as an outpatient. Recommend follow-up with GI as an outpatient to further address. Patient with diabetes mellitus type 2 with hyperglycemia. Patient needs better control of diabetes. Home medications reviewed and adjusted. Recommend to maintain blood sugar less than 140 fasting and less than 200 after meals. Patient with end-stage renal disease on hemodialysis every Thursday, Thursday and Thursday. Nephrology was consulted to help address. Patient appears to be slightly volume overloaded. Vital Signs/Physical Exam: Temp Pulse Resp BP Pulse Ox 96.6 F L 96 H 19 194/94 H 93 03/26/21 08:00 03/26/21 08:00 03/26/21 08:00 03/26/21 08:00 03/26/21 08:00 Laboratory Data at Discharge: WBC 11.40 K/uL (4.3-10.9) H 03/25/21 23:00 Hgb 10.8 g/dL (12.0-15.0) L 03/25/21 23:00 Hct 32.1 % (36.0-45.0) L 03/25/21 23:00 Plt Count 209 K/uL (152-406) 03/25/21 23:00 PT 12.0 SECONDS (9.5-12.5) 03/25/21 23:00 INR 1.04 03/25/21 23:00 Sodium 139 mmol/L (136-145) 03/25/21 23:00 Potassium 3.2 mmol/L (3.5-5.1) L 03/25/21 23:00 BUN 20 mg/dL (7-18) H 03/25/21 23:00 Creatinine 4.94 mg/dL (0.55-1.3) H 03/25/21 23:00 Glucose 283 mg/dL (74-106) H 03/25/21 23:00 Magnesium 2.1 mg/dL (1.8-2.4) 03/25/21 23:00 Total Bilirubin 0.8 mg/dL (0.2-1.0) 03/25/21 23:00 AST 17 U/L (15-37) 03/25/21 23:00 ALT 24 U/L (12-78) 03/25/21 23:00 Alkaline Phosphatase 119 U/L (45-117) H 03/25/21 23:00 Troponin I < 0.02 ng/mL (0.0-0.045) 03/26/21 05:11 Triglycerides 262 mg/dL (<150) H 03/26/21 05:11 Cholesterol 208 mg/dL (<200) H 03/26/21 05:11 HDL Cholesterol 34 mg/dL (40-60) L 03/26/21 05:11 Cholesterol/HDL Ratio 6.12 03/26/21 05:11 Lipase 120 U/L (73-393) 03/25/21 23:00 Followup: NONE,NONE [Primary Care Provider] -
--- NOTE | 2021-03-26 10:08 | P.PN ---
Subjective Date of Service: 03/26/21 Primary Care Provider: Gerry Chief Complaint: Chest pain Subjective: Other (Patient reports some nausea and vomiting. No chest pain noted. Blood sugar elevated.) Physical Examination - Vital Signs Temperature: 96.6 F Blood Pressure: 194/94 Pulse: 96 Respirations: 19 Pulse Ox (%): 93 - Studies Laboratory Data (last 24 hrs) 03/25/21 23:00: PT 12.0, INR 1.04 03/25/21 23:00: WBC 11.40 H, Hgb 10.8 L, Hct 32.1 L, Plt Count 209 03/25/21 23:00: Sodium 139, Potassium 3.2 L, BUN 20 H, Creatinine 4.94 H, Glucose 283 H, Magnesium 2.1, Total Bilirubin 0.8, AST 17, ALT 24, Alkaline Phosphatase 119 H, Lipase 120 Assessment & Plan Discharge Plan: Home Plan to discharge in: 24 Hours Physician Review Additional Text: COVID: Negative CXR: COMPARISON: September 2020 FINDINGS: Mild bilateral pulmonary opacities. The heart is mildly enlarged. A central venous catheter in place IMPRESSION: These findings probably indicate mild interstitial pulmonary edema CT scan AB/Pelvis: Unremarkable Physical Exam: GENERAL: The patient is a well-developed, well-nourished, in no apparent distress. Alert and oriented x3. VITAL SIGNS: Reviewed HEENT: Neck supple LUNGS: Decreased at the bases. Currently on 2 L per nasal cannula HEART: Regular rate and rhythm, no appreciable gallops, rubs, murmurs or extra heart sounds ABDOMEN: Soft, mild tenderness to the epigastric region r, and nondistended. P ositive bowel sounds. No hepatosplenomegaly was noted. EXTREMITIES: Without any cyanosis, clubbing, rash, lesions or peripheral edema. NEUROLOGIC: The patient is oriented to person, place and time. Strength and sensation are grossly intact. Face is symmetric. SKIN: Normal color, turgor and temperature. No ulcerations or rashes noted. Impression: Chest pain rule out ACS Acute on chronic diastolic CHF with mild pulmonary edema Abdominal pain with nausea/vomiting suspect GERD Diabetes mellitus type 2 with hyperglycemia ESRD on HD MWF Hypertension Anemia of chronic disease Blindness Plan: Chest pain rule out ACS: Troponin unremarkable. Case discussed with cardiology. No intervention required at this time. Will obtain echocardiogram. Will increase metoprolol for better blood pressure control. Need to obtain and restart home medications. Home likely in the next 24 hours. Acute on chronic diastolic CHF with mild pulmonary edema: Patient on 2 L per nasal cannula. Chest x-ray reviewed showed some pulmonary edema. Suspect patient will require dialysis. Will discuss with nephrology. Wean off oxygen. Echo to be obtained. Abdominal pain with nausea/vomiting: CT scan unremarkable. Suspect underlying GERD. Continue Protonix. Patient is seen by GI as an outpatient. Diabetes mellitus type 2 with hyperglycemia: Blood sugars elevated. Will check A1c. Will change insulin to aggressive sliding scale. Will start Lantus 15 units subcu twice daily. Diabetes needs to be better controlled. Hypertension: Need to restart home medication. We will increase metoprolol for now. ESRD on HD MWF: Nephrology consulted. Suspect patient may require dialysis at this time. Will discuss with nephrology. Anemia of chronic disease: We will monitor closely. Blindness: Patient completely blind, communicates well verbally though. Code Status: Full Code DVT prophylaxis: Heparin Advanced Care Planning-30 minutes: Home at discharge Time Spent Managing Pts Care (In Minutes): 55
[2021-03-26] MEDS: ASPIRIN EC 81 MG TAB PO SCH (10:16)
[2021-03-26] MEDS: HEPARIN 5000 UNIT/ML 1 ML VIAL SQ SCH ×2 (10:16→21:57)
[2021-03-26] MEDS: INSULIN GLARGINE 100 UNITS/ML SQ SCH ×2 (10:17→21:59)
--- NOTE | 2021-03-26 10:19 | RAD REPORT ---
EXAM DESCRIPTION: CT - Chest Abd Pelvis Wo Con - 03/26/2021 6:30 am CLINICAL HISTORY: CHEST PAIN; COUGH COMPARISON: None. TECHNIQUE: CT CHEST ABDOMEN PELVIS WITHOUT IV CONTRAST on 03/26/2021 12:48 AM CDT This exam was performed according to our departmental dose-optimization program, which includes autom ated exposure control, adjustment of the mA and/or kV according to patient size and/or use of iterati ve reconstruction technique. FINDINGS: Chest: The heart is normal in size. There is no pericardial effusion. Intrathoracic lymph nodes are not enlarged. Right IJ central line tip is in the cavoatrial junction. There is no pleural effusion, pleural thickening or pneumothorax. Central airways are patent. There i s mild bibasilar atelectasis and scarring. There is mild intralobular septal thickening throughout. Abdomen: The liver is normal in appearance. There is no biliary dilatation. The pancreas and spleen a re normal in appearance. Adrenal glands are normal. Kidneys are moderately atrophic. Abdominal aorta is normal in course and caliber without aneurysm. There is no free air. There is no r etroperitoneal adenopathy.There are several small fat-containing umbilical hernias. Pelvis: There is moderate scattered colonic diverticulosis. Urinary bladder is unremarkable. There is no free fluid. Uterus is normal in size. Appendix is normal. An IUD is present. Skeleton: There are no acute osseous findings. No suspicious bony lesions. IMPRESSION: Possible mild pulmonary edema. No definite acute inflammatory process in the abdomen or pelvis. Electronically signed by: Zac Way MD 03/26/2021 3:03 AM CDT Due to temporary technical issues with the PACS/Fluency reporting system, reports are being signed by the in house radiologist without review as a courtesy to ensure prompt reporting. The interpreting r adiologist is fully responsible for the content of the report.
[2021-03-26] MEDS: HYDRALAZINE HCL 20 MG/ML VIAL IV PRN ×3 (10:21→23:35)
[2021-03-26] MEDS: ONDANSETRON 4 MG/2 ML VIAL IV PRN ×3 (10:22→21:55)
[2021-03-26] MEDS: INSULIN -REGULAR HUMAN 50 UNIT/0.5 ML ML SQ SCH ×3 (10:22→21:59)
--- NOTE | 2021-03-26 12:11 | EDPHYS ---
Physician Documentation [facility] Name: Nina Kelley Age: 45 yrs Sex: Female : 1975 Arrival Date: 03/25/2021 Time: 21:43 Bed 16 Private MD: SAGAR Physician José Miguel Tariq HPI: 03/25 22:32 This 45 yrs old Female presents to ER via Ambulatory with complaints of Chest cortes Pain > 30 y/o, Vomiting. 22:32 The patient or guardian reports chest pain that is located primarily in the anterior [facility] chest wall, bilaterally. Onset: 1 day(s) ago. The pain does not radiate. Associated signs and symptoms: The patient has no apparent associated signs or symptoms. The chest pain is described as causing indigestion. Modifying factors: The symptoms are alleviated by nothing. the symptoms are aggravated by nothing. Severity of pain: At its worst the pain was mild moderate in the emergency department the pain is unchanged. The patient has not experienced similar symptoms in the past. Historical: - Allergies: 21:57 No Known Allergies; vg1 - Home Meds: 21:57 Humalog Sub-Q [Active]; vg1 - PMHx: 21:57 Diabetes - IDDM; Dialysis; legally blind; neuropathy; RETINAL DETACHMENT; vg1 - Immunization history:: Adult Immunizations up to date, Client reports receiving the 2nd dose of the Covid vaccine. - Social history:: Smoking status: Patient denies any tobacco usage or history of. - Family history:: not pertinent. ROS: 22:32 Constitutional: Negative for fever, chills, and weight loss, Eyes: Negative for injury, cortes pain, redness, and discharge, ENT: Negative for injury, pain, and discharge, Neck: Negative for injury, pain, and swelling, Back: Negative for injury and pain, : Negative for injury, bleeding, discharge, and swelling, MS/Extremity: Negative for injury and deformity, Skin: Negative for injury, rash, and discoloration, Neuro: Negative for headache, weakness, numbness, tingling, and seizure, Psych: Negative for depression, anxiety, suicide ideation, homicidal ideation, and hallucinations, Allergy/Immunology: Negative for hives, rash, and allergies, Endocrine: Negative for neck swelling, polydipsia, polyuria, polyphagia, and marked weight changes, Hematologic/Lymphatic: Negative for swollen nodes, abnormal bleeding, and unusual bruising. 22:32 Cardiovascular: Positive for chest pain. 22:32 Respiratory: Positive for shortness of breath. 22:32 Abdomen/GI: Positive for abdominal pain, nausea, vomiting, of the right upper quadrant, left upper quadrant, right lower quadrant and left lower quadrant. Exam: 22:32 Constitutional: This is a well developed, well nourished patient who is awake, alert, cortes and in no acute distress. Head/Face: Normocephalic, atraumatic. Eyes: Pupils equal round and reactive to light, extra-ocular motions intact. Lids and lashes normal. Conjunctiva and sclera are non-icteric and not injected. Cornea within normal limits. Periorbital areas with no swelling, redness, or edema. ENT: Nares patent. No nasal discharge, no septal abnormalities noted. Tympanic membranes are normal and external auditory canals are clear. Oropharynx with no redness, swelling, or masses, exudates, or evidence of obstruction, uvula midline. Mucous membranes moist. Neck: Trachea midline, no thyromegaly or masses palpated, and no cervical lymphadenopathy. Supple, full range of motion without nuchal rigidity, or vertebral point tenderness. No Meningismus. Chest/axilla: Normal chest wall appearance and motion. Nontender with no deformity. No lesions are appreciated. Cardiovascular: Regular rate and rhythm with a normal S1 and S2. No gallops, murmurs, or rubs. Normal PMI, no JVD. No pulse deficits. Respiratory: Lungs have equal breath sounds bilaterally, clear to auscultation and percussion. No rales, rhonchi or wheezes noted. No increased work of breathing, no retractions or nasal flaring. Back: No spinal tenderness. No costovertebral tenderness. Full range of motion. Skin: Warm, dry with normal turgor. Normal color with no rashes, no lesions, and no evidence of cellulitis. MS/ Extremity: Pulses equal, no cyanosis. Neurovascular intact. Full, normal range of motion. Neuro: Awake and alert, GCS 15, oriented to person, place, time, and situation. Cranial nerves II-XII grossly intact. Motor strength 5/5 in all extremities. Sensory grossly intact. Cerebellar exam normal. Normal gait. Psych: Awake, alert, with orientation to person, place and time. Behavior, mood, and affect are within normal limits. 22:32 ECG was reviewed by the Attending Physician. 22:32 Abdomen/GI: Inspection: distension, Bowel sounds: active, Palpation: mild abdominal tenderness, in all quadrants, Liver: no appreciated palpable abnormalities, Hernia: not appreciated. 03/26 00:47 ECG was reviewed by the Attending Physician. cortes Vital Signs: 03/25 21:54 BP 177 / 64; Pulse 94; Resp 22; Pulse Ox 100% ; Height 5 ft. 0 in. (152.40 cm); Pain vg1 10; 22:30 BP 161 / 59; Pulse 86; Resp 20; Pulse Ox 97% on R/A; Pain 8/10; dc2 23:30 BP 177 / 79; Pulse 85; Resp 16; Pulse Ox 99% ; Pain 0/10; dc2 03/26 00:30 BP 167 / 74; Pulse 75; Resp 18; Pulse Ox 99% ; Pain 0/10; dc2 02:00 BP 182 / 86; Pulse 81; Resp 16; Pulse Ox 98% 2 lpm ; Pain 0/10; dc2 03:00 BP 165 / 72; Pulse 78; Resp 16; Temp 97.6; Pulse Ox 98% 2 lpm ; Pain 0/10; dc2 MDM: 03/25 21:48 Patient medically screened. cortes 22:37 Differential diagnosis: abnormal EKG, acute pericarditis, anxiety, cholecystitis, cortes Cholelithiasis costochondritis, esophagitis, gastritis, gastroesophageal reflux disease (GERD), hiatal hernia, pancreatitis, pleurisy, pneumonia, pulmonary embolus, stable angina. HEART Score: History: Slightly Suspicious (0), ECG: Non specific repolarization disturbance / LBTB / PM (1), Age: < or = 45 years (0), Risk Factors: > or = 3 Risk factors for atherosclerotic disease (2), [Hypertension] [DM] [+ Family HX] [Obesity] Troponin: < or = 1 x Normal Limit (0). The patient was not given aspirin in the Emergency Department. Aspirin not given, patient refused. The patient's deep vein thrombosis risk score was calculated as follows: Total Score: 0. This patient was found to be at low risk for a deep vein thrombosis by using the Well's assessment criteria. The patient's pulmonary embolism risk score was calculated as follows: Total Score: 0-2 points. This patient was found to be at low risk for a pulmonary embolism by using the Well's assessment criteria. NEVIN Risk Score: 1 - Three or more CAD risk factors, TOTAL SCORE = 1. Data reviewed: vital signs, nurses notes, lab test result(s), EKG, radiologic studies, CT scan, plain films. Data interpreted: school lunch monitor: rate is 94 beats/min, rhythm is regular, Pulse oximetry: on room air is 100 %. Test interpretation: by ED physician or midlevel provider: ECG, plain radiologic studies. Counseling: I had a detailed discussion with the patient and/or guardian regarding: the historical points, exam findings, and any diagnostic results supporting the discharge/admit diagnosis, lab results, radiology results, the need for further work-up and treatment in the hospital. 03/25 21:49 Order name: Basic Metabolic Panel [facility] 03/25 21:49 Order name: CBC with Diff [facility] 03/25 21:49 Order name: LFT's [facility] 03/25 21:49 Order name: Magnesium [facility] 03/25 21:49 Order name: NT PRO-BNP [facility] 03/25 21:49 Order name: PT-INR [facility] 03/25 21:49 Order name: Troponin (emerg Dept Use Only) [facility] 03/25 21:49 Order name: Lipase [facility] 03/25 21:49 Order name: SARS-COV-2 RT PCR (Document "Date of Onset" if Symptomatic) [facility] 03/25 22:18 Order name: Basic Metabolic Panel [facility] 03/25 22:18 Order name: Liver (Hepatic) Function [facility] 03/25 22:18 Order name: Troponin (Emerg Dept Use Only) [facility] 03/25 22:18 Order name: NT PRO-BNP [facility] 03/25 22:18 Order name: Magnesium [facility] 03/25 21:49 Order name: XRAY Chest (1 view) [facility] 03/25 21:49 Order name: EKG; Complete Time: 12:12 [facility] 03/25 21:49 Order name: Cardiac monitoring; Complete Time: 22:14 [facility] 03/25 22:18 Order name: Lipase [facility] 03/25 22:19 Order name: CBC with Automated Diff [facility] 03/25 22:19 Order name: Protime (+INR) [facility] 03/25 23:05 Order name: EKG; Complete Time: 12:14 [facility] 03/25 23:20 Order name: CT Chest Abdomen Pelvis W/O Contrast [facility] 03/25 21:49 Order name: EKG - Nurse/Tech; Complete Time: 22:14 [facility] 03/25 21:49 Order name: IV Saline Lock; Complete Time: 22:14 [facility] 03/25 21:49 Order name: Labs collected and sent; Complete Time: 22:14 [facility] 03/25 21:49 Order name: O2 Per Protocol; Complete Time: 22:14 [facility] 03/25 21:49 Order name: O2 Sat Monitoring; Complete Time: 22:14 [facility] 03/25 23:05 Order name: EKG - Nurse/Tech; Complete Time: 23:18 cortes EC:32 Rate is 98 beats/min. Rhythm is regular. QRS [place] is Normal. ID interval is normal. QRS cortes interval is normal. QT interval is normal. No Q waves. T waves are Normal. ST Segment is depressed in leads I, II, III, aVF, V4, V5, V6. Interpreted by me. Reviewed by me. 03/26 00:47 Rate is 82 beats/min. Rhythm is regular. ID interval is normal. QRS interval is normal. cortes QT interval is normal. No Q waves. T waves are Normal. ST Segment is depressed in leads I, aVL, V4, V5, V6. Clinical impression: NSR w/ Non-specific ST/T Changes. Interpreted by me. Reviewed by me. Administered Medications: 03/25 22:25 Drug: Pepcid (famotidine) 20 mg Route: IVP; Site: left forearm; dc2 23:00 Follow up: Response: No adverse reaction dc2 22:28 Drug: Zofran (Ondansetron) 4 mg Route: IVP; Site: left forearm; dc2 23:00 Follow up: Response: Nausea is decreased dc2 22:29 CANCELLED (VO Dr. Tariq): NS 0.9% 1000 ml IV at 1 bolus Per protocol; 1000 mL bolus dc2 22:31 CANCELLED (Duplicate Order): Aspirin Chewable Tablet 324 mg PO once; 81 mg tablets x 4 cortes 22:33 Drug: Ativan (LORazepam) 0.5 mg Route: IVP; Site: left forearm; dc2 23:00 Follow up: Response: Anxiety decreased dc2 22:40 CANCELLED (Duplicate Order): morphine 2 mg IVP once; (PAIN>8) RASS on ADMN: Combtv4, cortes Very Agttd3, Agttd2, Rstlss1, AlertClm0, Drwsy-1, LtSdtn-2, ModSdtn-3, DpSdtn-4, UnArsble-5 x2 22:45 Drug: Dilaudid (HYDROmorphone) 1 mg Route: IVP; Infused Over: 2 mins; Site: left dc2 forearm; 23:30 Follow up: Response: Pain is decreased dc2 03/26 03:30 Drug: Phenergan (promethazine) 12.5 mg Route: IVP; Infused Over: 3 mins; Site: left dc2 forearm; 03:43 Follow up: Response: Medication administered at discharge. dc2 Disposition Summary: 03/26/21 00:46 Hospitalization Ordered Hospitalization Status: Observation cortes Provider: Rudy Conroy cha Location: Telemetry/MedSurg (observation) cortes Condition: Fair cortes Problem: new cortes Symptoms: have improved cotres Bed/Room Type: Standard [facility] Room Assignment: 211(03/26/21 02:33) Diagnosis - Chest pain, unspecified cortes - End stage renal disease - on HD on ,,thu cortes Forms: - Medication Reconciliation Form cortes - SBAR form cortes Signatures: Dispatcher [employer] EDMS Nuvia Sheikh RN RN José Miguel Zuniga MD MD cha Garcia, Victoria RN RN vg1 DavidSienna RN RN dc2 Corrections: (The following items were deleted from the chart) 03/25 22:29 21:49 NS 0.9% 1000 ml IV at 1 bolus Per protocol; 1000 mL bolus ordered. [facility] dc2 22:31 21:49 Aspirin Chewable Tablet 324 mg PO once; 81 mg tablets x 4 ordered. cortes cortes 22:40 22:32 morphine 2 mg IVP once; (PAIN>8) RASS on ADMN: Combtv4, Very Agttd3, Agttd2, cortes Rstlss1, AlertClm0, Drwsy-1, LtSdtn-2, ModSdtn-3, DpSdtn-4, UnArsble-5 x2 ordered. [facility] 03/26 02:33 00:46 cortes dobbs
--- NOTE | 2021-03-26 12:11 | ER ---
Nurse's Notes [facility] Name: Nina Kelley Age: 45 yrs Sex: Female : 1975 Arrival Date: 03/25/2021 Time: 21:43 Bed 16 Private MD: Diagnosis: Chest pain, unspecified;End stage renal disease-on HD on t,th,sat Presentation: 03/25 21:54 Chief complaint: Parent and/or Guardian states: NVD, chest and epigastric pain that vg1 began this morning after dialysis. Pt goes to dialysis MW. Coronavirus screen: Vaccine status: Patient reports receiving the 2nd dose of the covid vaccine. Client denies travel out of the [place] in the last 14 days. Ebola Screen: Patient negative for fever greater than or equal to 101.5 degrees Fahrenheit, and additional compatible Ebola Virus Disease symptoms. Initial Sepsis Screen: Does the patient meet any 2 criteria? RR > 20 per min. HR > 90 bpm. Yes Does the patient have a suspected source of infection? No. Patient's initial sepsis screen is negative. Risk Assessment: Do you want to hurt yourself or someone else? Patient reports no desire to harm self or others. Onset of symptoms was March 25, 2021. 21:54 Method Of Arrival: Ambulatory vg1 21:54 Acuity: ADELITA 3 vg1 Triage Assessment: 21:57 General: Appears in no apparent distress. uncomfortable, Behavior is anxious, crying. vg1 Pain: Complains of pain in Mid chest and epigastric Pain currently is 10 out of 10 on a pain scale. Cardiovascular: Patient's skin is warm and dry. GI: Pt is actively vomiting. Historical: - Allergies: 21:57 No Known Allergies; vg1 - Home Meds: 21:57 Humalog Sub-Q [Active]; vg1 - PMHx: 21:57 Diabetes - IDDM; Dialysis; legally blind; neuropathy; RETINAL DETACHMENT; vg1 - Immunization history:: Adult Immunizations up to date, Client reports receiving the 2nd dose of the Covid vaccine. - Social history:: Smoking status: Patient denies any tobacco usage or history of. - Family history:: not pertinent. Screenin:30 Abuse screen: Denies threats or abuse. Denies injuries from another. Nutritional dc2 screening: No deficits noted. Tuberculosis screening: No symptoms or risk factors identified. Never had TB. Fall Risk No fall in past 12 months (0 pts). Secondary diagnosis (15 points) No IV (0 pts). Ambulatory Aid- Furniture (30 pts.). Gait- Weak (10 pts.). Mental Status- Oriented to own ability (0 pts). Total Starkey Fall Scale indicates High Risk Score (45 or more points). Side Rails Up X 2 Frequent Obs/Assessments Occuring Family Present and informed to notify staff if the need to leave the bedside. Assessment: 21:47 Reassessment: Pt wheeled to room 16 moaning loudly. dc2 22:00 General: Appears uncomfortable, Behavior is anxious, crying, restless. dc2 22:00 Pain: Complains of pain in generalized abdominal pain. Neuro: No deficits noted. dc2 Cardiovascular: No deficits noted. Reports chest pain, nausea, vomiting, Patient's skin is warm and dry. Rhythm is regular Dialysis shunt: in the Right chest wall , what appears to be a adri catheter for dialysis. Respiratory: No deficits noted. Airway is patent Breath sounds are clear bilaterally. GI: Abdomen is distended, Pt is actively vomiting clear fluid, clear fluid with some green tinge Last BM at 21:30. Bowel sounds present X 4 quads. EENT: Eyes Pt is legally blind. Derm: No deficits noted. No signs and/or symptoms reported regarding the dermatologic system. Musculoskeletal: No deficits noted. 22:00 Pain: Pain does not radiate. Pain began suddenly, several hours ago after dialysis. dc2 22:15 Reassessment: Pt extremely anxious and carrying on, Dr. Tariq made aware and will dc2 order ativan. 03/26 03:24 Reassessment: Pt begin to vomit, provider made aware. WIll order phenergan 12.5 mg iv. dc2 Vital Signs: 03/25 21:54 BP 177 / 64; Pulse 94; Resp 22; Pulse Ox 100% ; Height 5 ft. 0 in. (152.40 cm); Pain vg1 10/10; 22:30 BP 161 / 59; Pulse 86; Resp 20; Pulse Ox 97% on R/A; Pain 8/10; dc2 23:30 BP 177 / 79; Pulse 85; Resp 16; Pulse Ox 99% ; Pain 0/10; dc2 10/26 00:30 BP 167 / 74; Pulse 75; Resp 18; Pulse Ox 99% ; Pain 0/10; dc2 02:00 BP 182 / 86; Pulse 81; Resp 16; Pulse Ox 98% 2 lpm ; Pain 0/10; dc2 03:00 BP 165 / 72; Pulse 78; Resp 16; Temp 97.6; Pulse Ox 98% 2 lpm ; Pain 0/10; dc2 ED Course: 03/25 21:43 Patient arrived in ED. bp1 21:47 Sienna Hernandez, ABBI is Primary Nurse. dc2 21:48 José Miguel Tariq MD is Attending Physician. cortes 21:57 Triage completed. vg1 21:57 Arm band placed on. vg1 22:00 Patient has correct armband on for positive identification. Fall risk band placed. dc2 Placed in gown. Bed in low position. Call light in reach. Side rails up X 1. Adult w/ patient. 22:00 engineering program manager on. Pulse ox on. NIBP on. Door closed. Lights dimmed. Warm blanket dc2 given. 22:13 Inserted saline lock: 22 gauge in left forearm, using aseptic technique. Blood ds4 collected. 22:35 Oxygen administration via nasal cannula \T\ 2L/min O2 via Pt very sleepy after receiving dc2 dilaudid and ativan, pulse ox 90-91% , 2L NC placed and sats increased 99%. 23:00 Bed in low position. Call light in reach. Side rails up X 1. Adult w/ patient. Cardiac dc2 monitor on. Pulse ox on. NIBP on. 23:30 Appears to be sleeping. dc2 03/26 00:00 Awaiting bed assignment. dc2 00:00 Bed in low position. Call light in reach. Side rails up X 1. Adult w/ patient. Cardiac dc2 monitor on. Pulse ox on. NIBP on. 00:44 Rudy Conroy DO is Hospitalizing Provider. cortes 00:58 X-ray(s) taken. dc2 01:00 Bed in low position. Call light in reach. Side rails up X 1. Adult w/ patient. Cardiac dc2 monitor on. Pulse ox on. NIBP on. :26 Patient moved back from CT. dc2 01:28 Consulted physician to see patient. dc2 01:34 No provider procedures requiring assistance completed. dc2 01:35 IV Flushed left forearm dc2 Administered Medications: 03/25 22:25 Drug: Pepcid (famotidine) 20 mg Route: IVP; Site: left forearm; dc2 23:00 Follow up: Response: No adverse reaction dc2 22:28 Drug: Zofran (Ondansetron) 4 mg Route: IVP; Site: left forearm; dc2 23:00 Follow up: Response: Nausea is decreased dc2 22:29 CANCELLED (VO Dr. Tariq): NS 0.9% 1000 ml IV at 1 bolus Per protocol; 1000 mL bolus dc2 22:31 CANCELLED (Duplicate Order): Aspirin Chewable Tablet 324 mg PO once; 81 mg tablets x 4 cortes 22:33 Drug: Ativan (LORazepam) 0.5 mg Route: IVP; Site: left forearm; dc2 23:00 Follow up: Response: Anxiety decreased dc2 22:40 CANCELLED (Duplicate Order): morphine 2 mg IVP once; (PAIN>8) RASS on ADMN: Combtv4, cortes Very Agttd3, Agttd2, Rstlss1, AlertClm0, Drwsy-1, LtSdtn-2, ModSdtn-3, DpSdtn-4, UnArsble-5 x2 22:45 Drug: Dilaudid (HYDROmorphone) 1 mg Route: IVP; Infused Over: 2 mins; Site: left dc2 forearm; 23:30 Follow up: Response: Pain is decreased dc2 03/26 03:30 Drug: Phenergan (promethazine) 12.5 mg Route: IVP; Infused Over: 3 mins; Site: left dc2 forearm; 03:43 Follow up: Response: Medication administered at discharge. dc2 Outcome: 00:46 Decision to Hospitalize by Provider. cortes 03:07 Admitted to Tele accompanied by tech, family with patient, via stretcher, room 211, dc2 with chart, Report called to ABBI Lerner 03:08 Condition: stable dc2 03:44 Patient left the ED. dc2 Signatures: José Miguel Tariq MD MD cha Swanson, Donovan ds4 Agatha Hernandez RN RN vg1 Marisa Savage [facility] Sienna Hernandez RN RN dc2
--- NOTE | 2021-03-26 12:13 | EKG ---
Test Date: 2021-03-25 Test Time: 23:13:06 Pump Runner: MARIO MEASUREMENT RESULTS: Intervals: Rate: 82 VA: 148 QRSD: 80 QT: 422 QTc: 493 Glade: P: 35 VA: 148 QRS: 12 T: 91 INTERPRETIVE STATEMENTS: Normal sinus rhythm Possible Left atrial enlargement Nonspecific ST and T wave abnormality Prolonged QT Abnormal ECG Compared to ECG 03/25/2021 21:49:47 Prolonged QT interval now present ST (T wave) deviation still present Electronically Signed On 03-26-21 12:12:45 CDT by Dionisio Travis
--- NOTE | 2021-03-26 12:14 | EKG ---
Test Date: 2021-03-25 Test Time: 21:49:47 Laundry [address] Driver: MEASUREMENT RESULTS: Intervals: Rate: 98 LA: 118 QRSD: 90 QT: 358 QTc: 457 Snook: P: 52 LA: 118 QRS: -12 T: 97 INTERPRETIVE STATEMENTS: Normal sinus rhythm Nonspecific ST and T wave abnormality Abnormal ECG Compared to ECG 08/19/2016 17:46:29 ST (T wave) deviation now present Sinus tachycardia no longer present Electronically Signed On 03-26-21 12:12:47 CDT by Dionisio Travis
[2021-03-26] MEDS ORDERED: HYDROCODONE/APAP 7.5/325 MG TAB PO PRN (15:55)
--- NOTE | 2021-03-26 16:11 | P.CNS ---
Date of Consult: 03/26/21 Reason for Consult: ESRD Requesting Physician: Rudy Conroy Primary Care Provider: Gerry Chief Complaint: Chest pain History of Present Illness: 45-year-old female with history of diabetes mellitus type 2, ESRD on HD MWF, blindness presents emerge department for chest pain. Patient reports that her chest pain began after receiving dialysis at home today. Pain is described as pressure/sharp radiating to the abdomen. Patient was evaluated in the emergency department labs are significant for white blood cell count 11.4 hemoglobin 10.8 hematocrit 32.1 potassium 3.2 creatinine 4.94 GFR 9 BUN 20 glucose 283 BNP 61,801 Covid test negative urinalysis pending CT abdomen pelvis without contrast negative for any acute findings initial troponin negative EKG without signs of STEMI. ED prior wishes to admit under observation for chest pain. 22:32 This 45 yrs old Female presents to ER via Ambulatory with complaints of Chest cortes Pain > 30 y/o, Vomiting. 22:32 The patient or guardian reports chest pain that is located primarily in the anterior cortes chest wall, bilaterally. Onset: 1 day(s) ago. The pain does not radiate. Associated signs and symptoms: The patient has no apparent associated signs or symptoms. The chest pain is described as causing indigestion. Modifying factors: The symptoms are alleviated by nothing. the symptoms are aggravated by nothing. Severity of pain: At its worst the pain was mild moderate in the emergency department the pain is unchanged. The patient has not experienced similar symptoms in the past. Allergies No Known Allergies Allergy (Unverified 07/27/12 09:24) Home medications list reviewed: Yes - Past Medical/Surgical History Diabetic: Yes -: Diabetes type 2 -: ESRD on HDMWF -: Blindness -: Retinal detachment -: Peritoneal dialysis catheter Psychosocial/ Personal History: Patient lives at home with her son - Family History Father Medical History: Heart disease, Diabetes - Social History Alcohol use: No CD- Drugs: No Caffeine use: Yes Place of Residence: Home Review of Systems 10-point ROS is otherwise unremarkable General: Weakness, Malaise Gastrointestinal: Nausea, Vomiting, Abdominal Pain Neurological: Weakness Physical Examination Temp Pulse Resp BP Pulse Ox 97.4 F 98 H 17 190/92 H 95 03/26/21 12:00 03/26/21 12:00 03/26/21 12:00 03/26/21 12:00 03/26/21 12:00 General: Oriented x3, Cooperative, Moderate distress HEENT: Atraumatic Neck: Supple Respiratory: Clear to auscultation bilaterally Cardiovascular: No edema, Regular rate/rhythm Gastrointestinal: Non-distended, Tenderness Musculoskeletal: No clubbing, No contractures Integumentary: No rashes, No cyanosis Neurological: Normal speech Laboratory Data (last 24 hrs) 03/26/21 11:24: Troponin I 0.14 H 03/26/21 08:00: Glucose 624 H* 03/26/21 05:11: Troponin I < 0.02, Triglycerides 262 H, Cholesterol 208 H, HDL Cholesterol 34 L, Cholesterol/HDL Ratio 6.12 03/25/21 23:00: PT 12.0, INR 1.04 03/25/21 23:00: WBC 11.40 H, Hgb 10.8 L, Hct 32.1 L, Plt Count 209 03/25/21 23:00: Sodium 139, Potassium 3.2 L, BUN 20 H, Creatinine 4.94 H, Gl ucose 283 H, Magnesium 2.1, Total Bilirubin 0.8, AST 17, ALT 24, Alkaline Phosphatase 119 H, Lipase 120 03/25/21 21:49: PT Cancelled, INR Cancelled 03/25/21 21:49: WBC Cancelled, Hgb Cancelled, Hct Cancelled, Plt Count Cancelled 03/25/21 21:49: Sodium Cancelled, Potassium Cancelled, BUN Cancelled, Creatinine Cancelled, Glucose Cancelled, Magnesium Cancelled, Total Bilirubin Cancelled, AST Cancelled, ALT Cancelled, Alkaline Phosphatase Cancelled, Lipase Cancelled Imagings Data: EXAM DESCRIPTION: RADChest Single View03/26/2021 1:12 am CLINICAL HISTORY: Chest pain COMPARISON: September 2020 FINDINGS: Mild bilateral pulmonary opacities. The heart is mildly enlarged. A central venous catheter in place IMPRESSION: These findings probably indicate mild interstitial pulmonary edema EXAM DESCRIPTION: CT - Chest Abd Pelvis Wo Con - 03/26/2021 6:30 am CLINICAL HISTORY: CHEST PAIN; COUGH COMPARISON: None. TECHNIQUE: CT CHEST ABDOMEN PELVIS WITHOUT IV CONTRAST on 03/26/2021 12:48 AM CDT This exam was performed according to our departmental dose-optimization program, which includes automated exposure control, adjustment of the mA and/or kV according to patient size and/or use of iterative reconstruction technique. FINDINGS: Chest: The heart is normal in size. There is no pericardial effusion. Intrathoracic lymph nodes are not enlarged. Right IJ central line tip is in the cavoatrial junction. There is no pleural effusion, pleural thickening or pneumothorax. Central airways are patent. There is mild bibasilar atelectasis and scarring. There is mild intralobular septal thickening throughout. Abdomen: The liver is normal in appearance. There is no biliary dilatation. The pancreas and spleen are normal in appearance. Adrenal glands are normal. Kidneys are moderately atrophic. Abdominal aorta is normal in course and caliber without aneurysm. There is no free air. There is no retroperitoneal adenopathy.There are several small fat- containing umbilical hernias. Pelvis: There is moderate scattered colonic diverticulosis. Urinary bladder is unremarkable. There is no free fluid. Uterus is normal in size. Appendix is normal. An IUD is present. Skeleton: There are no acute osseous findings. No suspicious bony lesions. IMPRESSION: Possible mild pulmonary edema. No definite acute inflammatory process in the abdomen or pelvis. Conclusions/Impression: ESRD -Acute HD tomorrow Hypokalemia -Encourage nutrtion HTN with CKD/ CHF -Continue Metoprolol Diastolic CHF, chronic -Continue Metoprolol -Low sodium diet DM II with CKD DM II with suspected gastroparesis -Continue Lantus -RISS -Reglan X1 Moderate malnutrition -Start Nepro Anemia in CKD -Retacrit PRN CKD MBD -Start Calcitriol Thank you kindly for the consultation. Case reviewed with Dr. Conroy.
[2021-03-26] MEDS ORDERED: METOCLOPRAMIDE 10 MG/2mL INJ IV SCH (17:00)
[2021-03-26] MEDS: METOPROLOL TAR 50 MG TAB PO SCH (17:11)
[2021-03-26] MEDS: ATORVASTATIN 20 MG TAB PO SCH ×2 (21:00→21:58)
[2021-03-26] MEDS: TRAMADOL HCL 50 MG TAB PO PRN (21:58)
[2021-03-26] MEDS: NEPRO SHAKE 237 ML CAN PO SCH (22:02)
[2021-03-27] MEDS: METOPROLOL TAR 50 MG TAB PO SCH ×2 (05:49→17:51)
[2021-03-27] MEDS: PANTOPRAZOLE 40MG TABLET PO SCH (05:49)
--- NOTE | 2021-03-27 06:00 | P.PN ---
Subjective Date of Service: 03/27/21 Primary Care Provider: Gerry Chief Complaint: Chest pain Subjective: Other (Overall stable. Patient with nausea and vomiting likely from diabetic gastroparesis.) Physical Examination - Vital Signs Temperature: 97.8 F Blood Pressure: 188/99 Pulse: 86 Respirations: 18 Pulse Ox (%): 96 - Studies Laboratory Data (last 24 hrs) 03/26/21 11:24: Troponin I 0.14 H 03/26/21 08:00: Glucose 624 H* 03/25/21 21:49: PT Cancelled, INR Cancelled 03/25/21 21:49: WBC Cancelled, Hgb Cancelled, Hct Cancelled, Plt Count Cancelled 03/25/21 21:49: Sodium Cancelled, Potassium Cancelled, BUN Cancelled, Creatinine Cancelled, Glucose Cancelled, Magnesium Cancelled, Total Bilirubin Cancelled, AST Cancelled, ALT Cancelled, Alkaline Phosphatase Cancelled, Lipase Cancelled Assessment & Plan Discharge Plan: Home Plan to discharge in: 24 Hours Physician Review Additional Text: COVID: Negative CXR: COMPARISON: September 2020 FINDINGS: Mild bilateral pulmonary opacities. The heart is mildly enlarged. A central venous catheter in place IMPRESSION: These findings probably indicate mild interstitial pulmonary edema CT scan AB/Pelvis: COMPARISON: None. TECHNIQUE: CT CHEST ABDOMEN PELVIS WITHOUT IV CONTRAST on 03/26/2021 12:48 AM CDT This exam was performed according to our departmental dose-optimization program, which includes automated exposure control, adjustment of the mA and/or kV according to patient size and/or use of iterative reconstruction technique. FINDINGS: Chest: The heart is normal in size. There is no pericardial effusion. Intrathoracic lymph nodes are not enlarged. Right IJ central line tip is in the cavoatrial junction. There is no pleural effusion, pleural thickening or pneumothorax. Central airways are patent. There is mild bibasilar atelectasis and scarring. There is mild intralobular septal thickening throughout. Abdomen: The liver is normal in appearance. There is no biliary dilatation. The pancreas and spleen are normal in appearance. Adrenal glands are normal. Kidneys are moderately atrophic. Abdominal aorta is normal in course and caliber without aneurysm. There is no free air. There is no retroperitoneal adenopathy.There are several small fat- containing umbilical hernias. Pelvis: There is moderate scattered colonic diverticulosis. Urinary bladder is unremarkable. There is no free fluid. Uterus is normal in size. Appendix is normal. An IUD is present. Skeleton: There are no acute osseous findings. No suspicious bony lesions. IMPRESSION: Possible mild pulmonary edema. No definite acute inflammatory process in the abdomen or pelvis. Physical Exam: GENERAL: The patient is a well-developed, well-nourished, in no apparent distress. Alert and oriented x3. VITAL SIGNS: Reviewed HEENT: Neck supple LUNGS: Decreased at the bases. Currently on 2 L per nasal cannula HEART: Regular rate and rhythm, no appreciable gallops, rubs, murmurs or extra heart sounds ABDOMEN: Patient reports epigastric pain. Somewhat improved. Soft, nondistended EXTREMITIES: Without any cyanosis, clubbing, rash, lesions or peripheral edema. NEUROLOGIC: The patient is oriented to person, place and time. Strength and sensation are grossly intact. Face is symmetric. SKIN: Normal color, turgor and temperature. No ulcerations or rashes noted. Impression: Chest pain rule out ACS Acute on chronic diastolic CHF with mild pulmonary edema Abdominal pain with nausea/vomiting suspect GERD Diabetes mellitus type 2 with hyperglycemia likely related to diabetic gastroparesis ESRD on HD MWF Hypertension Anemia of chronic disease Blindness Plan: Chest pain rule out ACS: Overall stable. Case discussed at length with cardiology. No intervention required at this time. Echocardiogram obtained. Blood pressure medications adjusted for better control. Need to review and adjust home medications. Spoke with nephrology today. Nephrology plans for dialysis today. Patient refused dialysis yesterday. Patient with gastroparesis. Will provide trial of Reglan. Will monitor closely. If improvement noted will plan for discharge as early as today if not tomorrow. Acute on chronic diastolic CHF with mild pulmonary edema: Continue to wean off oxygen. Patient to get dialysis today. Echocardiogram to be obtained. Abdominal pain with nausea/vomiting likely related to diabetic gastroparesis: CT scan unremarkable. Continue Protonix. Trial with Reglan. Will monitor closely. If tolerating diet then will plan for discharge. Diabetes mellitus type 2 with hyperglycemia: Continue with Lantus. Will monitor and adjust appropriately. Diabetes needs to be better controlled. Education and the importance of compliance addressed in detail. Hypertension: Metoprolol adjusted. Norvasc added. Need to obtain and verify home medication. ESRD on HD MWF: Case discussed with nephrology. Nephrology plans for dialysis today. Anemia of chronic disease: Overall stable. Monitor closely. Blindness: Patient completely blind, communicates well verbally though. Code Status: Full Code DVT prophylaxis: Heparin Advanced Care Planning-30 minutes: Home at discharge Time Spent Managing Pts Care (In Minutes): 55
[2021-03-27 06:46] LABS: Albumin 3.3 g/dL (3.4-5.0); Bilirubin Total 0.7 mg/dL (0.2-1.0); Magnesium 2.4 mg/dL (1.8-2.4); Potassium 3.3 mmol/L (3.5-5.1); Protein, Total 7.9 g/dL (6.4-8.2)
[2021-03-27 07:23] LABS: Absolute Lymphocytes (CBC) 0.8 K/uL (0.7-4.9); Basophils % 0.3 % (0-1.3); Hematocrit 32.2 % (36.0-45.0); Lymphocytes % 7.4 % (15.3-44.8); RBC Red Blood Cell Count 3.39 M/uL (3.86-4.86)
[2021-03-27] MEDS: METOCLOPRAMIDE 10 MG/2mL INJ IV PRN ×2 (08:54→17:53)
[2021-03-27] MEDS: HEPARIN 5000 UNIT/ML 1 ML VIAL SQ SCH ×2 (08:54→21:34)
[2021-03-27] MEDS: ASPIRIN EC 81 MG TAB PO SCH (08:54)
[2021-03-27] MEDS: AMLODIPINE 5 MG TAB PO SCH ×2 (08:54→21:00)
[2021-03-27] MEDS: NEPRO SHAKE 237 ML CAN PO SCH ×3 (08:55→21:00)
[2021-03-27 08:57] LABS: Platelet Estimate ADEQ; White Blood Cell Scan OK (OK)
[2021-03-27 08:58] LABS: Blood Morphology Comment NOT SEEN (NOT SEEN)
[2021-03-27] MEDS: TRAMADOL HCL 50 MG TAB PO PRN (09:10)
[2021-03-27] MEDS: INSULIN -REGULAR HUMAN 50 UNIT/0.5 ML ML SQ SCH ×4 (09:10→21:00)
[2021-03-27] MEDS: INSULIN GLARGINE 100 UNITS/ML SQ SCH ×2 (09:10→21:00)
[2021-03-27] MEDS ORDERED: MANNITOL 25% 12.5 GM/50 ML VIAL IV PRN (09:33)
[2021-03-27] MEDS ORDERED: NA CHLORIDE 0.9% 1,000 ML IV PRN (09:33)
[2021-03-27] MEDS ORDERED: ALBUMIN HUMAN 25% 50 ML IV SCH (10:00)
[2021-03-27] MEDS: ONDANSETRON 4 MG/2 ML VIAL IV PRN (13:45)
--- NOTE | 2021-03-27 20:16 | P.PN ---
Date of Service: 03/27/21 Vital Signs Temp Pulse Resp BP Pulse Ox 97.5 F 78 19 174/86 H 91 03/27/21 16:00 03/27/21 16:00 03/27/21 16:00 03/27/21 16:00 03/27/21 16:00 Medications Hydrocodone Bitart/Acetaminophen (Hydrocodone/Apap 7.5/325 Mg Tab) 1 tab PO Q6H PRN PRN Reason: Pain scale 5-7 (Moderate) Last Admin: 03/26/21 17:12 Dose: 1 tab Documented by: Amlodipine Besylate (Amlodipine 5 Mg Tab) 5 mg PO BID [facility] Last Admin: 03/27/21 08:54 Dose: 5 mg Documented by: Aspirin (Aspirin Ec 81 Mg Tab) 81 mg PO DAILY [facility] Last Admin: 03/27/21 08:54 Dose: 81 mg Documented by: Atorvastatin Calcium (Atorvastatin 20 Mg Tab) 20 mg PO BEDTIME [facility] Last Admin: 03/26/21 21:00 Dose: Not Given Documented by: Dextrose (D50w 25 Gm/50 Ml Syringe) 12.5 gm IV PRN PRN; Protocol PRN Reason: HYPOGLYCEMIA Enteral Nutritional Formula (Nepro Shake 237 Ml Can) 237 ml PO TID [facility] Last Admin: 03/27/21 14:00 Dose: Not Given Documented by: Glucagon (Glucagon 1 Mg/Vial) 1 mg IM 1X PRN; Protocol PRN Reason: HYPOGLYCEMIA Heparin Sodium (Porcine) (Heparin 5000 Unit/Ml 1 Ml Vial) 5,000 unit SQ Q12HR [facility] Last Admin: 03/27/21 08:54 Dose: 5,000 unit Documented by: Heparin Sodium (Porcine) (Heparin 1,000 Unit/Ml Vial) 6,000 unit IV EVERY HD PRN PRN Reason: AFTER EACH Hydralazine HCl (Hydralazine Hcl 20 Mg/Ml Vial) 10 mg IV Q6HP PRN PRN Reason: FOR SBP>160 MMHG OR DBP>100 MM Last Admin: 03/26/21 23:35 Dose: 10 mg Documented by: Sodium Chloride (Ns 1000 Ml Ivbag) 1,000 mls @ 0 mls/hr IV .Q0M PRN; Protocol PRN Reason: Priming and BP support at HD Stop: 03/27/21 23:59 Albumin Human (Albumin 25%) 50 mls @ 100 mls/hr IV EVERY HD [facility] Insulin Glargine (Insulin Glargine 100 Units/Ml) 15 units SQ BID [facility] Last Admin: 03/27/21 09:10 Dose: 15 units Documented by: Insulin Human Regular (Insulin -Regular Human 50 Unit/0.5 Ml Ml) 0 unit SQ ACHS [facility]; Protocol Last Admin: 03/27/21 16:28 Dose: Not Given Documented by: Losartan Potassium (Losartan Potassium 50 Mg Tablet) 50 mg PO BID [facility] Mannitol (Mannitol 25% 12.5 Gm/50 Ml Vial) 12.5 gm IV EVERY HD PRN PRN Reason: Titrate to SBP (MUST DEFINE) Metoclopramide HCl (Metoclopramide 10 Mg/2ml Inj) 5 mg IV Q6H PRN PRN Reason: NAUSEA / VOMITING Last Admin: 03/27/21 17:53 Dose: 5 mg Documented by: Metoprolol Tartrate (Metoprolol Tar 50 Mg Tab) 50 mg PO BID 6AM 6PM [facility] Last Admin: 03/27/21 17:51 Dose: 50 mg Documented by: Ondansetron HCl (Ondansetron 4 Mg/2 Ml Vial) 4 mg IV Q6HP PRN PRN Reason: NAUSEA / VOMITING Last Admin: 03/27/21 13:45 Dose: 4 mg Documented by: Pantoprazole Sodium (Pantoprazole 40mg Tablet) 40 mg PO DAILYAC [facility]; Protocol Last Admin: 03/27/21 05:49 Dose: 40 mg Documented by: Sodium Chloride (Flush Normal Saline 10 Ml) 10 ml IV BID [facility] Last Admin: 03/27/21 08:55 Dose: 10 ml Documented by: Sodium Chloride (Sodium Chloride 0.9% 10ml Inj) 10 ml IV UD PRN PRN Reason: Diluant Tramadol HCl (Tramadol Hcl 50 Mg Tab) 50 mg PO TID PRN PRN Reason: Pain scale 2-4 (Mild) Last Admin: 03/27/21 09:10 Dose: 50 mg Documented by: Assessment/ Plan: Nephrology Progress Note Malaise with N/V Fatigue and weakness No acute events overnight Vitals, medications blood work and imaging reviewed in the chart General: Oriented x3, Cooperative, Moderate distress HEENT: Atraumatic Neck: Supple Respiratory: Clear to auscultation bilaterally Cardiovascular: No edema, Regular rate/rhythm Gastrointestinal: Non-distended, Tenderness Musculoskeletal: No clubbing, No contractures Integumentary: No rashes, No cyanosis Neurological: Normal speech Laboratory Data (last 24 hrs) 03/26/21 11:24: Troponin I 0.14 H 03/26/21 08:00: Glucose 624 H* 03/26/21 05:11: Troponin I < 0.02, Triglycerides 262 H, Cholesterol 208 H, HDL Cholesterol 34 L, Cholesterol/HDL Ratio 6.12 03/25/21 23:00: PT 12.0, INR 1.04 03/25/21 23:00: WBC 11.40 H, Hgb 10.8 L, Hct 32.1 L, Plt Count 209 03/25/21 23:00: Sodium 139, Potassium 3.2 L, BUN 20 H, Creatinine 4.94 H, Glucose 283 H, Magnesium 2.1, Total Bilirubin 0.8, AST 17, ALT 24, Alkaline Phosphatase 119 H, Lipase 120 03/25/21 21:49: PT Cancelled, INR Cancelled 03/25/21 21:49: WBC Cancelled, Hgb Cancelled, Hct Cancelled, Plt Count Cancelled 03/25/21 21:49: Sodium Cancelled, Potassium Cancelled, BUN Cancelled, Creatinine Cancelled, Glucose Cancelled, Magnesium Cancelled, Total Bilirubin Cancelled, AST Cancelled, ALT Cancelled, Alkaline Phosphatase Cancelled, Lipase Cancelled Imagings Data: EXAM DESCRIPTION: [facility]/26/2021 1:12 am CLINICAL HISTORY: Chest pain COMPARISON: September 2020 FINDINGS: Mild bilateral pulmonary opacities. The heart is mildly enlarged. A central venous catheter in place IMPRESSION: These findings probably indicate mild interstitial pulmonary edema EXAM DESCRIPTION: CT - Chest Abd Pelvis Wo Con - 03/26/2021 6:30 am CLINICAL HISTORY: CHEST PAIN; COUGH COMPARISON: None. TECHNIQUE: CT CHEST ABDOMEN PELVIS WITHOUT IV CONTRAST on 03/26/2021 12:48 AM CDT This exam was performed according to our departmental dose-optimization program, which includes automated exposure control, adjustment of the mA and/or kV according to patient size and/or use of iterative reconstruction technique. FINDINGS: Chest: The heart is normal in size. There is no pericardial effusion. Intrathoracic lymph nodes are not enlarged. Right IJ central line tip is in the cavoatrial junction. There is no pleural effusion, pleural thickening or pneumothorax. Central airways are patent. There is mild bibasilar atelectasis and scarring. There is mild intralobular septal thickening throughout. Abdomen: The liver is normal in appearance. There is no biliary dilatation. The pancreas and spleen are normal in appearance. Adrenal glands are normal. Kidneys are moderately atrophic. Abdominal aorta is normal in course and caliber without aneurysm. There is no free air. There is no retroperitoneal adenopathy.There are several small fat- containing umbilical hernias. Pelvis: There is moderate scattered colonic diverticulosis. Urinary bladder is unremarkable. There is no free fluid. Uterus is normal in size. Appendix is normal. An IUD is present. Skeleton: There are no acute osseous findings. No suspicious bony lesions. IMPRESSION: Possible mild pulmonary edema. No definite acute inflammatory process in the abdomen or pelvis. Conclusions/Impression: ESRD -Acute HD today Hypokalemia -Encourage nutrtion HTN with CKD/ CHF -Continue Metoprolol -Start Losartan BID Diastolic CHF, chronic -Continue Metoprolol -Start Losartan BID -Low sodium diet DM II with CKD DM II with suspected gastroparesis -Continue Lantus -RISS -Reglan PRN Moderate malnutrition -Continue Nepro Anemia in CKD -Retacrit PRN CKD MBD -Continue Calcitriol Case reviewed with Dr. Conroy
[2021-03-27] MEDS: LOSARTAN POTASSIUM 50 MG TABLET PO SCH (21:00)
[2021-03-27] MEDS: ATORVASTATIN 20 MG TAB PO SCH (21:35)
[2021-03-28] MEDS: ONDANSETRON 4 MG/2 ML VIAL IV PRN ×2 (03:03→12:50)
[2021-03-28] MEDS: METOPROLOL TAR 50 MG TAB PO SCH ×2 (05:29→17:50)
[2021-03-28] MEDS: PANTOPRAZOLE 40MG TABLET PO SCH (05:29)
--- NOTE | 2021-03-28 05:53 | P.PN ---
Subjective Date of Service: 03/28/21 Primary Care Provider: Gerry Chief Complaint: Chest pain Subjective: Other (Patient appears improved. Some nausea noted.) Physical Examination - Vital Signs Temperature: 98.1 F Blood Pressure: 182/95 Pulse: 85 Respirations: 18 Pulse Ox (%): 96 Assessment & Plan Discharge Plan: Home Plan to discharge in: 24 Hours Physician Review Additional Text: COVID: Negative CXR: COMPARISON: September 2020 FINDINGS: Mild bilateral pulmonary opacities. The heart is mildly enlarged. A central venous catheter in place IMPRESSION: These findings probably indicate mild interstitial pulmonary edema CT scan AB/Pelvis: COMPARISON: None. TECHNIQUE: CT CHEST ABDOMEN PELVIS WITHOUT IV CONTRAST on 03/26/2021 12:48 AM CDT This exam was performed according to our departmental dose-optimization program, which includes automated exposure control, adjustment of the mA and/or kV according to patient size and/or use of iterative reconstruction technique. FINDINGS: Chest: The heart is normal in size. There is no pericardial effusion. Intrathoracic lymph nodes are not enlarged. Right IJ central line tip is in the cavoatrial junction. There is no pleural effusion, pleural thickening or pneumothorax. Central airways are patent. There is mild bibasilar atelectasis and scarring. There is mild intralobular septal thickening throughout. Abdomen: The liver is normal in appearance. There is no biliary dilatation. The pancreas and spleen are normal in appearance. Adrenal glands are normal. Kidneys are moderately atrophic. Abdominal aorta is normal in course and caliber without aneurysm. There is no free air. There is no retroperitoneal adenopathy.There are several small fat- containing umbilical hernias. Pelvis: There is moderate scattered colonic diverticulosis. Urinary bladder is unremarkable. There is no free fluid. Uterus is normal in size. Appendix is normal. An IUD is present. Skeleton: There are no acute osseous findings. No suspicious bony lesions. IMPRESSION: Possible mild pulmonary edema. No definite acute inflammatory process in the abdomen or pelvis. Physical Exam: GENERAL: The patient is a well-developed, well-nourished, in no apparent distress. Alert and oriented x3. Patient better hydrated VITAL SIGNS: Reviewed HEENT: Neck supple LUNGS: Decreased at the bases. Currently on 1 L per nasal cannula HEART: Regular rate and rhythm, no appreciable gallops, rubs, murmurs or extra heart sounds ABDOMEN: Patient reports epigastric pain. Overall improved. Soft, nondistended EXTREMITIES: Without any cyanosis, clubbing, rash, lesions or peripheral edema. NEUROLOGIC: The patient is oriented to person, place and time. Strength and se nsation are grossly intact. Face is symmetric. SKIN: Normal color, turgor and temperature. No ulcerations or rashes noted. Impression: Chest pain Acute on chronic diastolic CHF with mild pulmonary edema Abdominal pain with nausea/vomiting suspect GERD Diabetes mellitus type 2 with hyperglycemia likely related to diabetic gastroparesis ESRD on HD MWF Hypertension Anemia of chronic disease Blindness Plan: Chest pain: Overall stable. Case discussed at length with cardiology. No intervention required at this time. Echocardiogram obtained. Blood pressure medications adjusted for better control. Need to review and adjust home medications. Spoke with nephrology today. Nephrology plans for dialysis today. Patient refused dialysis yesterday. Patient with gastroparesis. Will provide trial of Reglan. Will monitor closely. Physical therapy to ambulate. If improvement noted will plan for discharge as early as today if not tomorrow. Acute on chronic diastolic CHF with mild pulmonary edema: Overall improved. Continue to wean off oxygen. Patient received dialysis. Abdominal pain with nausea/vomiting likely related to diabetic gastroparesis: CT scan unremarkable. Case discussed at length with GI. GI recommends outpatient work-up. Patient with diabetic gastroparesis. Needs better diabetic control. Lantus adjusted for this. Continue Protonix and Reglan. Will check KUB today. Encourage ambulation. Will start with clear liquid diet and advance as tolerate d. Anticipate continued improvement. Diabetes mellitus type 2 with hyperglycemia: Blood sugar better control. Continue Lantus. Will monitor and address appropriately. Continue with Lantus. Diabetes needs to be better controlled. Education and the importance of compliance addressed in detail. Hypertension: Patient remains on Norvasc 5 mg 1 pill twice daily and losartan 50 mg 1 pill twice daily. Increase metoprolol to 75 mg 1 pill twice daily for better blood pressure control. ESRD on HD MWF: Continue with dialysis. Will discuss further with nephrology. Anemia of chronic disease: Overall stable. Monitor closely. Blindness: Patient completely blind, communicates well verbally though. Code Status: Full Code DVT prophylaxis: Heparin Advanced Care Planning-30 minutes: Home at discharge Time Spent Managing Pts Care (In Minutes): 55
[2021-03-28 05:59] LABS: Absolute Lymphocytes (CBC) 0.9 K/uL (0.7-4.9); Basophils % 0.4 % (0-1.3); Lymphocytes % 9.4 % (15.3-44.8); MPV 9.3 fL (7.6-11.3); RBC Red Blood Cell Count 3.55 M/uL (3.86-4.86)
[2021-03-28 06:00] LABS: Albumin 3.1 g/dL (3.4-5.0); Bilirubin Total 0.9 mg/dL (0.2-1.0); Magnesium 2.2 mg/dL (1.8-2.4); Phosphorus 2.7 mg/dL (2.5-4.9); Potassium 3.9 mmol/L (3.5-5.1); Uric Acid 3.3 mg/dL (2.6-6.0)
[2021-03-28] MEDS: INSULIN -REGULAR HUMAN 50 UNIT/0.5 ML ML SQ SCH ×4 (07:30→19:58)
[2021-03-28] MEDS ORDERED: SODIUM CHLORIDE 0.9% 10ML INJ IV PRN (08:35)
[2021-03-28] MEDS ORDERED: ALPRAZOLAM 0.25 MG TABLET PO PRN (08:38)
[2021-03-28] MEDS: ASPIRIN EC 81 MG TAB PO SCH (09:00)
[2021-03-28] MEDS: HEPARIN 5000 UNIT/ML 1 ML VIAL SQ SCH ×2 (09:00→20:08)
[2021-03-28] MEDS: LOSARTAN POTASSIUM 50 MG TABLET PO SCH ×2 (09:00→20:02)
[2021-03-28] MEDS: AMLODIPINE 5 MG TAB PO SCH ×2 (09:00→20:02)
[2021-03-28] MEDS: INSULIN GLARGINE 100 UNITS/ML SQ SCH ×2 (09:00→20:02)
[2021-03-28] MEDS: NEPRO SHAKE 237 ML CAN PO SCH ×3 (09:00→19:58)
[2021-03-28] MEDS: METOCLOPRAMIDE 10 MG/2mL INJ IV PRN ×2 (09:59→17:50)
[2021-03-28] MEDS: PANTOPRAZOLE 40 MG INJ IVP SCH (10:00)
[2021-03-28] MEDS: DORZOLAMIDE 2% OPTH (10 ML) OPTH SCH (10:11)
--- NOTE | 2021-03-28 10:21 | RAD REPORT ---
EXAM DESCRIPTION: RAD - Abdomen 1 View (KUB) - 03/28/2021 10:04 am CLINICAL HISTORY: nausea, suspect DM gastroparesis COMPARISON: Chest Abd Pelvis Wo Con dated 03/26/2021 FINDINGS: Bowel gas pattern is non-specific. No obstruction, free air or pneumatosis. Stomach does not appear to be abnormally distended. A fluid-filled stomach can be potentially occult on KUB imagin g. Phleboliths are seen. No suspicious calcifications noted. IUD is seen in the low midline pelvis. No significant bony findings IMPRESSION: KUB examination, as detailed above, without acute finding.
[2021-03-28] MEDS: TRAMADOL HCL 50 MG TAB PO PRN (12:49)
[2021-03-28] MEDS: ALPRAZOLAM 0.25 MG TABLET PO PRN ×2 (12:49→20:02)
[2021-03-28 16:32] VITALS: O2SAT 98
[2021-03-28] MEDS: HYDRALAZINE HCL 20 MG/ML VIAL IV PRN (17:51)
[2021-03-28] MEDS: ATORVASTATIN 20 MG TAB PO SCH (20:02)
--- NOTE | 2021-03-28 20:26 | P.PN ---
Date of Service: 03/28/21 Vital Signs Temp Pulse Resp BP Pulse Ox 98.7 F 89 16 161/96 H 96 03/28/21 16:00 03/28/21 16:00 03/28/21 16:00 03/28/21 20:02 03/28/21 16:00 Medications Hydrocodone Bitart/Acetaminophen (Hydrocodone/Apap 7.5/325 Mg Tab) 1 tab PO Q6H PRN PRN Reason: Pain scale 5-7 (Moderate) Last Admin: 03/26/21 17:12 Dose: 1 tab Documented by: Alprazolam (Alprazolam 0.25 Mg Tablet) 0.25 mg PO TID PRN PRN Reason: ANXIETY Last Admin: 03/28/21 20:02 Dose: 0.25 mg Documented by: Amlodipine Besylate (Amlodipine 5 Mg Tab) 5 mg PO BID [facility] Last Admin: 03/28/21 20:02 Dose: 5 mg Documented by: Aspirin (Aspirin Ec 81 Mg Tab) 81 mg PO DAILY [facility] Last Admin: 03/28/21 09:00 Dose: Not Given Documented by: Atorvastatin Calcium (Atorvastatin 20 Mg Tab) 20 mg PO BEDTIME [facility] Last Admin: 03/28/21 20:02 Dose: 20 mg Documented by: Dextrose (D50w 25 Gm/50 Ml Syringe) 12.5 gm IV PRN PRN; Protocol PRN Reason: HYPOGLYCEMIA Dorzolamide HCl (Dorzolamide 2% Opth (10 Ml)) 0 drops OPTH DAILY [facility] Last Admin: 03/28/21 10:11 Dose: 2 drops Documented by: Enteral Nutritional Formula (Nepro Shake 237 Ml Can) 237 ml PO TID [facility] Last Admin: 03/28/21 19:58 Dose: Not Given Documented by: Glucagon (Glucagon 1 Mg/Vial) 1 mg IM 1X PRN; Protocol PRN Reason: HYPOGLYCEMIA Heparin Sodium (Porcine) (Heparin 5000 Unit/Ml 1 Ml Vial) 5,000 unit SQ Q12HR [facility] Last Admin: 03/28/21 20:08 Dose: 5,000 unit Documented by: Heparin Sodium (Porcine) (Heparin 1,000 Unit/Ml Vial) 6,000 unit IV EVERY HD PRN PRN Reason: AFTER EACH Hydralazine HCl (Hydralazine Hcl 20 Mg/Ml Vial) 10 mg IV Q6HP PRN PRN Reason: FOR SBP>160 MMHG OR DBP>100 MM Last Admin: 03/28/21 17:51 Dose: 10 mg Documented by: Albumin Human (Albumin 25%) 50 mls @ 100 mls/hr IV EVERY HD [facility] Insulin Glargine (Insulin Glargine 100 Units/Ml) 15 units SQ BID [facility] Last Admin: 03/28/21 20:02 Dose: 15 units Documented by: Insulin Human Regular (Insulin -Regular Human 50 Unit/0.5 Ml Ml) 0 unit SQ ACHS [facility]; Protocol Last Admin: 03/28/21 19:58 Dose: Not Given Documented by: Losartan Potassium (Losartan Potassium 50 Mg Tablet) 50 mg PO BID [facility] Last Admin: 03/28/21 20:02 Dose: 50 mg Documented by: Mannitol (Mannitol 25% 12.5 Gm/50 Ml Vial) 12.5 gm IV EVERY HD PRN PRN Reason: Titrate to SBP (MUST DEFINE) Metoclopramide HCl (Metoclopramide 10 Mg/2ml Inj) 5 mg IV Q6H PRN PRN Reason: NAUSEA / VOMITING Last Admin: 03/28/21 17:50 Dose: 5 mg Documented by: Metoprolol Tartrate (Metoprolol Tar 50 Mg Tab) 75 mg PO BID 6AM 6PM [facility] Last Admin: 03/28/21 17:50 Dose: 75 mg Documented by: Ondansetron HCl (Ondansetron 4 Mg/2 Ml Vial) 4 mg IV Q6HP PRN PRN Reason: NAUSEA / VOMITING Last Admin: 03/28/21 12:50 Dose: 4 mg Documented by: Pantoprazole Sodium (Pantoprazole 40 Mg Inj) 40 mg IVP DAILY [facility]; Protocol Last Admin: 03/28/21 10:00 Dose: 40 mg Documented by: Ropinirole HCl (Ropinirole Hcl 0.25 Mg Tab) 0.25 mg PO BEDTIME [facility] Last Admin: 03/28/21 20:02 Dose: 0.25 mg Documented by: Sodium Chloride (Flush Normal Saline 10 Ml) 10 ml IV BID [facility] Last Admin: 03/28/21 19:49 Dose: Not Given Documented by: Sodium Chloride (Sodium Chloride 0.9% 10ml Inj) 10 ml IV UD PRN PRN Reason: Diluant Sodium Chloride (Sodium Chloride 0.9% 10ml Inj) 10 ml IV UD PRN PRN Reason: Diluant Tramadol HCl (Tramadol Hcl 50 Mg Tab) 50 mg PO TID PRN PRN Reason: Pain scale 2-4 (Mild) Last Admin: 03/28/21 12:49 Dose: 50 mg Documented by: Assessment/ Plan: Nephrology Progress Note Malaise with N/V Fatigue and weakness No acute events overnight Vitals, medications blood work and imaging reviewed in the chart General: Oriented x3, Cooperative, Moderate distress HEENT: Atraumatic Neck: Supple Respiratory: Clear to auscultation bilaterally Cardiovascular: No edema, Regular rate/rhythm Gastrointestinal: Non-distended, Tenderness Musculoskeletal: No clubbing, No contractures Integumentary: No rashes, No cyanosis Neurological: Normal speech Laboratory Data (last 24 hrs) 03/26/21 11:24: Troponin I 0.14 H 03/26/21 08:00: Glucose 624 H* 03/26/21 05:11: Troponin I < 0.02, Triglycerides 262 H, Cholesterol 208 H, HDL Cholesterol 34 L, Cholesterol/HDL Ratio 6.12 03/25/21 23:00: PT 12.0, INR 1.04 03/25/21 23:00: WBC 11.40 H, Hgb 10.8 L, Hct 32.1 L, Plt Count 209 03/25/21 23:00: Sodium 139, Potassium 3.2 L, BUN 20 H, Creatinine 4.94 H, Glucose 283 H, Magnesium 2.1, Total Bilirubin 0.8, AST 17, ALT 24, Alkaline Phosphatase 119 H, Lipase 120 03/25/21 21:49: PT Cancelled, INR Cancelled 03/25/21 21:49: WBC Cancelled, Hgb Cancelled, Hct Cancelled, Plt Count Cancelled 03/25/21 21:49: Sodium Cancelled, Potassium Cancelled, BUN Cancelled, Creatinine Cancelled, Glucose Cancelled, Magnesium Cancelled, Total Bilirubin Cancelled, AST Cancelled, ALT Cancelled, Alkaline Phosphatase Cancelled, Lipase Cancelled Imagings Data: EXAM DESCRIPTION: RADChest Single View03/26/2021 1:12 am CLINICAL HISTORY: Chest pain COMPARISON: September 2020 FINDINGS: Mild bilateral pulmonary opacities. The heart is mildly enlarged. A central venous catheter in place IMPRESSION: These findings probably indicate mild interstitial pulmonary edema EXAM DESCRIPTION: CT - Chest Abd Pelvis Wo Con - 03/26/2021 6:30 am CLINICAL HISTORY: CHEST PAIN; COUGH COMPARISON: None. TECHNIQUE: CT CHEST ABDOMEN PELVIS WITHOUT IV CONTRAST on 03/26/2021 12:48 AM CDT This exam was performed according to our departmental dose-optimization program, which includes automated exposure control, adjustment of the mA and/or kV according to patient size and/or use of iterative reconstruction technique. FINDINGS: Chest: The heart is normal in size. There is no pericardial effusion. Intrathoracic lymph nodes are not enlarged. Right IJ central line tip is in the cavoatrial junction. There is no pleural effusion, pleural thickening or pneumothorax. Central airways are patent. There is mild bibasilar atelectasis and scarring. There is mild intralobular septal thickening throughout. Abdomen: The liver is normal in appearance. There is no biliary dilatation. The pancreas and spleen are normal in appearance. Adrenal glands are normal. Kidneys are moderately atrophic. Abdominal aorta is normal in course and caliber without aneurysm. There is no free air. There is no retroperitoneal adenopathy.There are several small fat- containing umbilical hernias. Pelvis: There is moderate scattered colonic diverticulosis. Urinary bladder is unremarkable. There is no free fluid. Uterus is normal in size. Appendix is normal. An IUD is present. Skeleton: There are no acute osseous findings. No suspicious bony lesions. IMPRESSION: Possible mild pulmonary edema. No definite acute inflammatory process in the abdomen or pelvis. Conclusions/Impression: ESRD -Acute HD tomorrow Hypokalemia -Encourage nutrtion HTN with CKD/ CHF -Agree with Metoprolol increase -Continue Losartan and Amlodipine Diastolic CHF, chronic -Continue Metoprolol -Continue Losartan BID -Low sodium diet DM II with CKD DM II with suspected gastroparesis -Continue Lantus -RISS -Reglan PRN Moderate malnutrition -Continue Nepro Anemia in CKD -Retacrit PRN CKD MBD -Continue Calcitriol
[2021-03-28] MEDS ORDERED: ROPINIROLE HCL 0.25 MG TAB PO SCH (21:00)
[2021-03-29 00:43] VITALS: BMI 27.3
[2021-03-29] MEDS: METOPROLOL TAR 50 MG TAB PO SCH (05:15)
[2021-03-29 05:31] LABS: Absolute Lymphocytes (CBC) 1.3 K/uL (0.7-4.9); Basophils % 1.1 % (0-1.3); Hematocrit 33.2 % (36.0-45.0); Lymphocytes % 19.6 % (15.3-44.8); MPV 9.1 fL (7.6-11.3); RBC Red Blood Cell Count 3.44 M/uL (3.86-4.86)
[2021-03-29 05:34] VITALS: TEMP 98.4
[2021-03-29 05:58] LABS: Albumin 2.9 g/dL (3.4-5.0); Bilirubin Total 0.8 mg/dL (0.2-1.0); Magnesium 2.3 mg/dL (1.8-2.4); Phosphorus 3.3 mg/dL (2.5-4.9); Potassium 3.6 mmol/L (3.5-5.1); Protein, Total 7.2 g/dL (6.4-8.2)
--- NOTE | 2021-03-29 06:00 | P.PN ---
Subjective Date of Service: 03/29/21 Primary Care Provider: Gerry Chief Complaint: Chest pain Subjective: Improving, Doing well Physical Examination - Vital Signs Temperature: 98.4 F Blood Pressure: 130/68 Pulse: 67 Respirations: 17 Pulse Ox (%): 94 Assessment & Plan Discharge Plan: Home Plan to discharge in: 24 Hours Physician Review Additional Text: COVID: Negative CXR: COMPARISON: September 2020 FINDINGS: Mild bilateral pulmonary opacities. The heart is mildly enlarged. A central venous catheter in place IMPRESSION: These findings probably indicate mild interstitial pulmonary edema CT scan AB/Pelvis: COMPARISON: None. TECHNIQUE: CT CHEST ABDOMEN PELVIS WITHOUT IV CONTRAST on 03/26/2021 12:48 AM CDT This exam was performed according to our departmental dose-optimization program, which includes automated exposure control, adjustment of the mA and/or kV according to patient size and/or use of iterative reconstruction technique. FINDINGS: Chest: The heart is normal in size. There is no pericardial effusion. Intrathoracic lymph nodes are not enlarged. Right IJ central line tip is in the cavoatrial junction. There is no pleural effusion, pleural thickening or pneumothorax. Central airways are patent. There is mild bibasilar atelectasis and scarring. There is mild intralobular septal thickening throughout. Abdomen: The liver is normal in appearance. There is no biliary dilatation. The pancreas and spleen are normal in appearance. Adrenal glands are normal. Kidneys are moderately atrophic. Abdominal aorta is normal in course and caliber without aneurysm. There is no free air. There is no retroperitoneal adenopathy.There are several small fat- containing umbilical hernias. Pelvis: There is moderate scattered colonic diverticulosis. Urinary bladder is unremarkable. There is no free fluid. Uterus is normal in size. Appendix is normal. An IUD is present. Skeleton: There are no acute osseous findings. No suspicious bony lesions. IMPRESSION: Possible mild pulmonary edema. No definite acute inflammatory process in the abdomen or pelvis. KUB: COMPARISON: Chest Abd Pelvis Wo Con dated 03/26/2021 FINDINGS: Bowel gas pattern is non-specific. No obstruction, free air or pneumatosis. Stomach does not appear to be abnormally distended. A fluid-filled stomach can be potentially occult on KUB imaging. Phleboliths are seen. No suspicious calcifications noted. IUD is seen in the low midline pelvis. No significant bony findings IMPRESSION: KUB examination, as detailed above, without acute finding. Physical Exam: GENERAL: The patient is a well-developed, well-nourished, in no apparent distress. Alert and oriented x3. Patient better hydrated VITAL SIGNS: Reviewed HEENT: Neck supple LUNGS: Better air movement bilateral. Currently on room air. HEART: Regular rate and rhythm, no appreciable gallops, rubs, murmurs or extra heart sounds ABDOMEN: No more significant pain noted. Soft, nontender EXTREMITIES: Without any cyanosis, clubbing, rash, lesions or peripheral edema. NEUROLOGIC: The patient is oriented to person, place and time. Strength and sensation are grossly intact. Face is symmetric. SKIN: Normal color, turgor and temperature. No ulcerations or rashes noted. Impression: Chest pain Acute on chronic diastolic CHF with mild pulmonary edema Abdominal pain with nausea/vomiting suspect GERD Diabetes mellitus type 2 with hyperglycemia likely related to diabetic gastroparesis ESRD on HD MWF Hypertension Anemia of chronic disease Blindness Plan: Chest pain: Resolved. Overall stable. Blood pressure stable. Gastroparesis improved. Will discharge after dialysis. Follow-up with GI as an outpatient. Acute on chronic diastolic CHF with mild pulmonary edema: Improved. Currently on room air. Patient received dialysis. Abdominal pain with nausea/vomiting likely related to diabetic gastroparesis: CT scan unremarkable. Case discussed at length with GI. GI recommends outpatient work-up. Patient with diabetic gastroparesis. Diabetes better controlled. No significant pain noted today. KUB unremarkable. We will continue with Protonix and limited supply of Reglan at discharge. Patient will need to follow-up with GI as an outpatient to further address. Diabetes mellitus type 2 with hyperglycemia: Blood sugar better control. Continue Lantus. Will monitor and address appropriately. Of compliance with medication and strict diabetes will be important in the future. Hypertension: Patient remains on Norvasc 5 mg 1 pill twice daily and losartan 50 mg 1 pill twice daily. Increased dose of metoprolol 75 mg 1 pill twice daily has better controlled her blood pressure. ESRD on HD MWF: Continue with dialysis. Anemia of chronic disease: Overall stable. Monitor closely. Blindness: Patient completely blind, communicates well verbally though. Code Status: Full Code DVT prophylaxis: Heparin Advanced Care Planning-30 minutes: Home at discharge Time Spent Managing Pts Care (In Minutes): 55
[2021-03-29] MEDS: INSULIN -REGULAR HUMAN 50 UNIT/0.5 ML ML SQ SCH ×2 (07:30→11:30)
[2021-03-29] MEDS: TRAMADOL HCL 50 MG TAB PO PRN (08:10)
[2021-03-29] MEDS: ONDANSETRON 4 MG/2 ML VIAL IV PRN (08:11)
--- NOTE | 2021-03-29 08:28 | P.DS ---
Admission Date: 03/26/21 Discharge Date: 03/29/21 Primary Care Provider: Gerry Disposition: ROUTINE DISCHARGE Discharge Condition: GOOD Reason for Admission: Chest pain Consultations: Cardiology-Dr. Travis Nephrology- Procedures: COVID: Negative CXR: COMPARISON: September 2020 FINDINGS: Mild bilateral pulmonary opacities. The heart is mildly enlarged. A central venous catheter in place IMPRESSION: These findings probably indicate mild interstitial pulmonary edema CT scan AB/Pelvis: COMPARISON: None. TECHNIQUE: CT CHEST ABDOMEN PELVIS WITHOUT IV CONTRAST on 03/26/2021 12:48 AM CDT This exam was performed according to our departmental dose-optimization program, which includes automated exposure control, adjustment of the mA and/or kV according to patient size and/or use of iterative reconstruction technique. FINDINGS: Chest: The heart is normal in size. There is no pericardial effusion. Intrathoracic lymph nodes are not enlarged. Right IJ central line tip is in the cavoatrial junction. There is no pleural effusion, pleural thickening or pneumothorax. Central airways are patent. There is mild bibasilar atelectasis and scarring. There is mild intralobular septal thickening throughout. Abdomen: The liver is normal in appearance. There is no biliary dilatation. The pancreas and spleen are normal in appearance. Adrenal glands are normal. Kidneys are moderately atrophic. Abdominal aorta is normal in course and caliber without aneurysm. There is no free air. There is no retroperitoneal adenopathy.There are several small fat- containing umbilical hernias. Pelvis: There is moderate scattered colonic diverticulosis. Urinary bladder is unremarkable. There is no free fluid. Uterus is normal in size. Appendix is normal. An IUD is present. Skeleton: There are no acute osseous findings. No suspicious bony lesions. IMPRESSION: Possible mild pulmonary edema. No definite acute inflammatory process in the abdomen or pelvis. KUB: COMPARISON: Chest Abd Pelvis Wo Con dated 03/26/2021 FINDINGS: Bowel gas pattern is non-specific. No obstruction, free air or pneumatosis. Stomach does not appear to be abnormally distended. A fluid-filled stomach can be potentially occult on KUB imaging. Phleboliths are seen. No suspicious calcifications noted. IUD is seen in the low midline pelvis. No significant bony findings IMPRESSION: KUB examination, as detailed above, without acute finding. Medical problem list: Chest pain Acute on chronic diastolic CHF with mild pulmonary edema Abdominal pain with nausea/vomiting suspect GERD and gastroparesis Diabetes mellitus type 2 with hyperglycemia ESRD on HD [facility] Hypertension Anemia of chronic disease Blindness Anxiety Brief History of Present Illness: 45-year-old female with history of diabetes mellitus type 2, ESRD on HD MWF, blindness scented to the emergency room with chest pain. Chest pain occurred after receiving dialysis. Patient came to the ER for further evaluation. Initial cardiac enzymes unremarkable. EKG shows no significant abnormal changes. Patient admitted for observation. Hospital Course: Patient presented with chest pain. Patient with underlying history of diastolic CHF, end-stage renal disease on hemodialysis, hypertension, diabetes, GERD. Patient was admitted for further evaluation and observation. Cardiac enzymes unremarkable. Patient was seen by cardiology. No cardiac intervention recommended at this time. Chest pain resolved. At discharge recommend follow- up with cardiology in 1 to 2 weeks to follow-up his hospitalization. Patient may require outpatient cardiac evaluation to further address due to her multiple risk factors. Patient also had abdominal pain with nausea and vomiting. Patient with underlying GERD. Diabetic gastroparesis was also suspected. Patient seen and evaluated by GI. Patient improved with Protonix and Reglan. No intervention required at this time. At discharge patient will continue with Protonix 40 mg daily. A limited supply of Reglan 4 mg twice daily as needed for nausea and vomiting will be provided. Recommend follow-up with GI in 2 to 4 weeks to follow-up his hospitalization. Patient may have further work-up for gastroparesis as an outpatient. Patient with end-stage renal disease on hemodialysis. Patient gets hemodialysis every Thursday, Thursday and Thursday at home. Nephrology was consulted. Patient received dialysis with improvement. At discharge patient will continue with hemodialysis every Thursday, Thursday and Thursday at home. Patient will continue with her medications including Calcitrol 0.25 mcg daily and PhosLo 667 mg 1 pill 3 times a day. Recommend follow-up with pulmonology as directed. Patient with hypertension. Blood pressures were elevated. Medications were adjusted during the course of her stay. Patient previously on nifedipine. This was discontinued. At discharge blood pressures improved with current regimen. At discharge patient will continue with Norvasc 5 mg 1 pill twice daily, Cozaar 50 mg 1 pill twice daily, and metoprolol 75 mg 1 pill twice daily. Recommend to maintain blood pressure less than 130/80. Further adjustment can be done by her PCP. Patient with anxiety. At discharge patient will continue with Xanax 0.25 mg at bedtime. A limited supply will be provided at discharge. Patient with anemia of chronic disease with iron deficiency. At discharge patient will continue with iron supplementation daily. Patient with chronic pain. At discharge patient will continue with her medication of tramadol 50 mg 1 pill twice daily as needed for pain. Patient with diabetes mellitus type 2 with hyperglycemia. Medications have been adjusted. At discharge patient will need to continue with Lantus 15 units subcu twice daily Recommend to monitor blood sugar twice daily. Recommend to maintain blood sugar less than 140 fasting and less than 200 after meals. If blood sugars remain above 200 she may increase Lantus by 1 to 2 units for better control. Recommend to recheck hemoglobin A1c every 3 months to monitor her progress. Follow-up with PCP within 1 week to make sure diabetes is well controlled especially in light of possible diabetic gastroparesis. Vital Signs/Physical Exam: Temp Pulse Resp BP Pulse Ox 98.4 F 67 17 130/68 94 03/29/21 08:24 03/29/21 08:24 03/29/21 08:24 03/29/21 08:24 03/29/21 08:24 General: Alert, In no apparent distress, Oriented x3, Cooperative HEENT: Atraumatic Neck: Supple Respiratory: Clear to auscultation bilaterally, Normal air movement Cardiovascular: Normal pulses, Regular rate/rhythm Gastrointestinal: Normal bowel sounds, No ascites, No tenderness, No masses, No rebound, No guarding Musculoskeletal: No erythema, No tenderness, No warmth Integumentary: No tenderness/swelling Neurological: Normal speech, Normal strength at 5/5 x4 extr, Normal tone, Normal affect Laboratory Data at Discharge: WBC 6.80 K/uL (4.3-10.9) D 03/29/21 05:05 Hgb 10.8 g/dL (12.0-15.0) L 03/29/21 05:05 Hct 33.2 % (36.0-45.0) L 03/29/21 05:05 Plt Count 203 K/uL (152-406) 03/29/21 05:05 PT 12.0 SECONDS (9.5-12.5) 03/25/21 23:00 INR 1.04 03/25/21 23:00 Sodium 137 mmol/L (136-145) 03/29/21 05:05 Potassium 3.6 mmol/L (3.5-5.1) 03/29/21 05:05 BUN 30 mg/dL (7-18) H 03/29/21 05:05 Creatinine 6.23 mg/dL (0.55-1.3) H* D 03/29/21 05:05 Glucose 142 mg/dL (74-106) H 03/29/21 05:05 Uric Acid 3.3 mg/dL (2.6-6.0) 03/28/21 05:36 Phosphorus 3.3 mg/dL (2.5-4.9) 03/29/21 05:05 Magnesium 2.3 mg/dL (1.8-2.4) 03/29/21 05:05 Total Bilirubin 0.8 mg/dL (0.2-1.0) 03/29/21 05:05 AST 18 U/L (15-37) 03/29/21 05:05 ALT 28 U/L (12-78) 03/29/21 05:05 Alkaline Phosphatase 79 U/L (45-117) 03/29/21 05:05 Troponin I 0.14 ng/mL (0.0-0.045) H 03/26/21 11:24 Triglycerides 262 mg/dL (<150) H 03/26/21 05:11 Cholesterol 208 mg/dL (<200) H 03/26/21 05:11 HDL Cholesterol 34 mg/dL (40-60) L 03/26/21 05:11 Cholesterol/HDL Ratio 6.12 03/26/21 05:11 Lipase 120 U/L (73-393) 03/25/21 23:00 Home Medications: Calcium Acetate [Phoslo*] 1 cap PO TIDWM 03/27/21 Docusate [Colace Cap*] 1 tab PO DAILY 03/27/21 Dorzolamide HCl/Pf [Dorzolamide 2% Eye Drop] 2 drops EACH EYE DAILY 03/27/21 Ferric Citrate [Auryxia] 420 mg PO DAILY WITH BREAKFAST 03/27/21 Polyethylene Glycol 3350 [Miralax] 17 gm PO DAILYPRN PRN 03/27/21 Ropinirole HCl [Requip*] 0.25 mg PO BEDTIME 03/27/21 Tramadol HCl [Ultram] 50 mg PO BIDP PRN 03/27/21 calcitrioL [Rocaltrol] 0.25 mcg PO DAILY 03/27/21 ALPRAZolam [Xanax*] 1 tab PO BEDTIME PRN PRN #5 tab 03/29/21 Amlodipine [Norvasc*] 5 mg PO BID #60 tab 03/29/21 Insulin Glargine Human [Lantus*] 15 units SQ BID #1 vial 03/29/21 Losartan Potassium [Cozaar*] 50 mg PO BID #60 tablet 03/29/21 Metoclopramide HCl [Reglan] 5 mg PO BID PRN #5 tablet 03/29/21 Metoprolol Tartrate [Lopressor*] 75 mg PO BID 6AM 6PM #90 tab 03/29/21 Nepro Shake [Nepro*] 237 ml PO TID #90 can 03/29/21 Pantoprazole [Protonix Tab] 40 mg PO DAILY #30 tab 03/29/21 New Medications: Losartan Potassium [Cozaar*] 50 mg PO BID #60 tablet Insulin Glargine Human [Lantus*] 15 units SQ BID #1 vial Metoprolol Tartrate [Lopressor*] 75 mg PO BID 6AM 6PM #90 tab Nepro Shake [Nepro*] 237 ml PO TID #90 can Amlodipine [Norvasc*] 5 mg PO BID #60 tab Pantoprazole [Protonix Tab] 40 mg PO DAILY #30 tab Metoclopramide HCl [Reglan] 5 mg PO BID PRN #5 tablet PRN Reason: Nausea / Vomiting ALPRAZolam [Xanax*] 1 tab PO BEDTIME PRN PRN #5 tab PRN Reason: Anxiety Physician Discharge Instructions: Patient presented with chest pain. Patient with underlying history of diastolic CHF, end-stage renal disease on hemodialysis, hypertension, diabetes, GERD. Patient was admitted for further evaluation and observation. Cardiac enzymes unremarkable. Patient was seen by cardiology. No cardiac intervention recommended at this time. Chest pain resolved. At discharge recommend follow- up with cardiology in 1 to 2 weeks to follow-up his hospitalization. Patient may require outpatient cardiac evaluation to further address due to her multiple risk factors. Patient also had abdominal pain with nausea and vomiting. Patient with underlying GERD. Diabetic gastroparesis was also suspected. Patient seen and evaluated by GI. Patient improved with Protonix and Reglan. No intervention required at this time. At discharge patient will continue with Protonix 40 mg daily. A limited supply of Reglan 4 mg twice daily as needed for nausea and vomiting will be provided. Recommend follow-up with GI in 2 to 4 weeks to follow-up his hospitalization. Patient may have further work-up for gastroparesis as an outpatient. Patient with end-stage renal disease on hemodialysis. Patient gets hemodialysis every Thursday, Thursday and Thursday at home. Nephrology was consulted. Patient received dialysis with improvement. At discharge patient will continue with hemodialysis every Thursday, Thursday and Thursday at home. Patient will continue with her medications including Calcitrol 0.25 mcg daily and PhosLo 667 mg 1 pill 3 times a day. Recommend follow-up with pulmonology as directed. Patient with hypertension. Blood pressures were elevated. Medications were adjusted during the course of her stay. Patient previously on nifedipine. This was discontinued. At discharge blood pressures improved with current regimen. At discharge patient will continue with Norvasc 5 mg 1 pill twice daily, Cozaar 50 mg 1 pill twice daily, and metoprolol 75 mg 1 pill twice daily. Recommend to maintain blood pressure less than 130/80. Further adjustment can be done by her PCP. Patient with anxiety. At discharge patient will continue with Xanax 0.25 mg at bedtime. A limited supply will be provided at discharge. Patient with anemia of chronic disease with iron deficiency. At discharge patient will continue with iron supplementation daily. Patient with chronic pain. At discharge patient will continue with her medication of tramadol 50 mg 1 pill twice daily as needed for pain. Patient with diabetes mellitus type 2 with hyperglycemia. Medications have been adjusted. At discharge patient will need to continue with Lantus 15 units subcu twice daily Recommend to monitor blood sugar twice daily. Recommend to maintain blood sugar less than 140 fasting and less than 200 after meals. If blood sugars remain above 200 she may increase Lantus by 1 to 2 units for better control. Recommend to recheck hemoglobin A1c every 3 months to monitor her progress. Follow-up with PCP within 1 week to make sure diabetes is well controlled especially in light of possible diabetic gastroparesis. Diet: Renal Activity: Ad andrews Followup: NONE,NONE [Primary Care Provider] - Time spent managing pt's care (in minutes): 55
[2021-03-29] MEDS: DORZOLAMIDE 2% OPTH (10 ML) OPTH SCH (09:00)
[2021-03-29] MEDS: PANTOPRAZOLE 40 MG INJ IVP SCH (09:00)
[2021-03-29] MEDS: ASPIRIN EC 81 MG TAB PO SCH (09:00)
[2021-03-29] MEDS: INSULIN GLARGINE 100 UNITS/ML SQ SCH (09:00)
[2021-03-29] MEDS: HEPARIN 5000 UNIT/ML 1 ML VIAL SQ SCH (09:00)
[2021-03-29] MEDS: NEPRO SHAKE 237 ML CAN PO SCH (09:00)
[2021-03-29 12:52] VITALS: BP 183/97
--- NOTE | 2021-03-29 18:06 | P.PN ---
Date of Service: 03/29/21 Vital Signs Temp Pulse Resp BP Pulse Ox 98.4 F 82 18 183/97 H 99 03/29/21 08:24 03/29/21 12:00 03/29/21 12:00 03/29/21 12:00 03/29/21 12:00 Assessment/ Plan: Nephrology Progress Note Malaise with N/V Fatigue and weakness No acute events overnight Vitals, medications blood work and imaging reviewed in the chart General: Oriented x3, Cooperative, Moderate distress HEENT: Atraumatic Neck: Supple Respiratory: Clear to auscultation bilaterally Cardiovascular: No edema, Regular rate/rhythm Gastrointestinal: Non-distended, Tenderness Musculoskeletal: No clubbing, No contractures Integumentary: No rashes, No cyanosis Neurological: Normal speech Laboratory Data (last 24 hrs) 03/26/21 11:24: Troponin I 0.14 H 03/26/21 08:00: Glucose 624 H* 03/26/21 05:11: Troponin I < 0.02, Triglycerides 262 H, Cholesterol 208 H, HDL Cholesterol 34 L, Cholesterol/HDL Ratio 6.12 03/25/21 23:00: PT 12.0, INR 1.04 03/25/21 23:00: WBC 11.40 H, Hgb 10.8 L, Hct 32.1 L, Plt Count 209 03/25/21 23:00: Sodium 139, Potassium 3.2 L, BUN 20 H, Creatinine 4.94 H, Glucose 283 H, Magnesium 2.1, Total Bilirubin 0.8, AST 17, ALT 24, Alkaline Phosphatase 119 H, Lipase 120 03/25/21 21:49: PT Cancelled, INR Cancelled 03/25/21 21:49: WBC Cancelled, Hgb Cancelled, Hct Cancelled, Plt Count Cancelled 03/25/21 21:49: Sodium Cancelled, Potassium Cancelled, BUN Cancelled, Creatinine Cancelled, Glucose Cancelled, Magnesium Cancelled, Total Bilirubin Cancelled, AST Cancelled, ALT Cancelled, Alkaline Phosphatase Cancelled, Lipase Cancelled Imagings Data: EXAM DESCRIPTION: Kymt Single View03/26/2021 1:12 am CLINICAL HISTORY: Chest pain COMPARISON: September 2020 FINDINGS: Mild bilateral pulmonary opacities. The heart is mildly enlarged. A central venous catheter in place IMPRESSION: These findings probably indicate mild interstitial pulmonary edema EXAM DESCRIPTION: CT - Chest Abd Pelvis Wo Con - 03/26/2021 6:30 am CLINICAL HISTORY: CHEST PAIN; COUGH COMPARISON: None. TECHNIQUE: CT CHEST ABDOMEN PELVIS WITHOUT IV CONTRAST on 03/26/2021 12:48 AM CDT This exam was performed according to our departmental dose-optimization program, which includes automated exposure control, adjustment of the mA and/or kV according to patient size and/or use of iterative reconstruction technique. FINDINGS: Chest: The heart is normal in size. There is no pericardial effusion. Intrathoracic lymph nodes are not enlarged. Right IJ central line tip is in the cavoatrial junction. There is no pleural effusion, pleural thickening or pneumothorax. Central airways are patent. There is mild bibasilar atelectasis and scarring. There is mild intralobular septal thickening throughout. Abdomen: The liver is normal in appearance. There is no biliary dilatation. The pancreas and spleen are normal in appearance. Adrenal glands are normal. Kidneys are moderately atrophic. Abdominal aorta is normal in course and caliber without aneurysm. There is no free air. There is no retroperitoneal adenopathy.There are several small fat- containing umbilical hernias. Pelvis: There is moderate scattered colonic diverticulosis. Urinary bladder is unremarkable. There is no free fluid. Uterus is normal in size. Appendix is normal. An IUD is present. Skeleton: There are no acute osseous findings. No suspicious bony lesions. IMPRESSION: Possible mild pulmonary edema. No definite acute inflammatory process in the abdomen or pelvis. Conclusions/Impression: ESRD -Acute HD today -Seen and examined on HD Hypokalemia -Encourage nutrtion HTN with CKD/ CHF -Agree with Metoprolol increase -Continue Losartan and Amlodipine Diastolic CHF, chronic -Continue Metoprolol -Continue Losartan BID -Low sodium diet DM II with CKD DM II with suspected gastroparesis -Continue Lantus -RISS -Reglan PRN Moderate malnutrition -Continue Nepro Anemia in CKD -Retacrit PRN CKD MBD -Continue Calcitriol Case reviewed with Dr. Conroy
--- NOTE | 2021-03-31 10:13 | CON ---
Date of Consultation: 03/26/2021 Reason For Consultation: Atypical chest pain. History Of Present Illness: Ms. Kelley is a 45-year-old unfortunate woman who has otherwise very compl icated past medical history. She is blind. She has neuropathy, retinal detachment. She is on dialy sis. She has diabetes. She comes in with chest pain and vomiting after an episode of dialysis at [facility]. She is on peritoneal dialysis. Her symptoms were in the anterior chest with nausea and vomiting and did not radiate. Denied PND, orthopnea, pedal edema, palpitations, or syncope. Past Medical History: As stated above. Review of Systems: Negative. Social History: Negative. Family History: Noncontributory. Medications: At home include Xanax, Norvasc, calcium, Colace, iron, insulin losartan, Reglan, metopr olol, pantoprazole, Requip, and Ultram. Physical Examination: General: When I saw her, she was lethargic and somnolent. Vital Signs: Showed significant hypertension at 174/86. She was in sinus rhythm. She was afebrile. Her O2 saturation was 97% on 1 L nasal cannula. HEENT: Negative. Neck: Supple. No bruit. Chest: Clear. Cardiac: Revealed an S4 gallops. Regular rhythm and rate. Abdomen: Benign. Extremities: Revealed no clubbing, cyanosis. She had trace edema. Diagnostic Data: Creatinine was 4.47. Her hemoglobin was 11.5. NC has already been ruled out. Impression And Plan: Atypical chest pain. I think is related to gastroparesis or gastroesophageal r eflux. I do not think she has peritonitis. Nephrology is following her. I think we need to continu e her present regimen. She should have a cardiac workup with an echocardiogram and Lexiscan. This c ertainly can be done as an outpatient. Her EKG is unremarkable. Her KUB is unremarkable. Her chest x-ray showed some mild fluid overload. I will continue her present regimen. I am concerned about h er blood pressure and I think increasing metoprolol may be reasonable. I will make sure she gets an outpatient echo and Lexiscan after discharge. NORAH/MAKEDA Voice ID: [id number] Report ID: [id number]
[2021-04-01 04:35] LABS: HBsAG Nonreactive (Nonreactive)
== END 2021-03-29 17:15 | disposition home health service (06) | DRG 291 ==
LOC: ER 21:42 → ERHOLD 03-26 01:40 → 2ND 03-26 03:18 → OBSVTOIN 03-26 14:13
PROVIDERS: ADMIT Family Medicine; ATTEND Family Medicine
PROC: 5A1D70Z Performance of Urinary Filtration, Intermittent, Less than 6 Hours Per Day (ICD-10-PCS; principal; 2021-03-27)
PROC: 5A1D70Z Performance of Urinary Filtration, Intermittent, Less than 6 Hours Per Day (ICD-10-PCS; 2021-03-29)
DX: I13.2 Hypertensive heart and chronic kidney disease with heart failure and with stage 5 chronic kidney disease, or end stage renal disease (principal); N18.6 End stage renal disease; I50.33 Acute on chronic diastolic (congestive) heart failure; E46 Unspecified protein-calorie malnutrition; E11.22 Type 2 diabetes mellitus with diabetic chronic kidney disease; E11.65 Type 2 diabetes mellitus with hyperglycemia; E11.43 Type 2 diabetes mellitus with diabetic autonomic (poly)neuropathy; K31.84 Gastroparesis; G89.29 Other chronic pain; D63.8 Anemia in other chronic diseases classified elsewhere; D50.9 Iron deficiency anemia, unspecified; E87.6 Hypokalemia; Z68.27 Body mass index [BMI] 27.0-27.9, adult; H54.7 Unspecified visual loss; Z20.822 Contact with and (suspected) exposure to COVID-19
CPT/HCPCS: 0240U; 36415; 71045; 71250; 74018; 74176; 80048; 80053; 80061; 80076; 82947; 83690; 83735; 83880; 84100; 84439; 84443; 84484; 84550; 85025; 85610; 86704; 86706; 86803; 87340; 90935; 93005; 96374; 96375; 97161; 99285; C9113; G0378; J0360; J1170; J1644; J1815; J2270; J2405; J2550; J2765; J7030

== ENCOUNTER 2021-07-26 09:11 | Emergency (ER) | payer OTHER ==
--- OUTSIDE RECORDS SUMMARY | 2021-07-26 09:15 | XMS REPORT | Continuity of Care Document ---
:1975 Author Organization [facility] t Address [address] [place] [address] Care Team Providers Name Role Phone ELBA Primary Care Physician Unavailable Doctor Unassigned, Name Attending Clinician Unavailable MIMI Attending Clinician Unavailable KEYON Attending Clinician Unavailable MASOOD Attending Clinician Unavailable DAVIN LINDSAY Attending Clinician Unavailable ALLA Attending Clinician Unavailable Attending Clinician Unavailable EDWIN Attending Clinician Unavailable MD MAURY CORRAL Attending Clinician Unavailable PK WEATHERS Attending Clinician Unavailable JOSÉ MIGUEL Attending Clinician Unavailable MD BONNY Attending Clinician Unavailable STEVEN Attending Clinician Unavailable MD Netta HARRIS Attending Clinician Unavailable SOURAV Attending Clinician Unavailable MD ZHENG Q. Attending Clinician Unavailable JESSICA Attending Clinician Unavailable DONALD LUZ Attending Clinician Unavailable GABRIELLA BERMUDEZ Attending Clinician Unavailable MAURY Admitting Clinician Unavailable MD MAURY CORRAL Admitting Clinician Unavailable BONNY Admitting Clinician Unavailable MD BONNY Admitting Clinician Unavailable STEVEN Admitting Clinician Unavailable MD EMMA YRebecca Admitting Clinician Unavailable ZHENG Admitting Clinician Unavailable MD ZHENG Q. Admitting Clinician Unavailable GABRIELLA BERMUDEZ Admitting Clinician Unavailable Payers Payer Name Policy Type Policy Number Effective Date Expiration Date S luna MEDICARE PART A [id number] 2020 \T\ B - MEDICARE 00:00:00 CHOICE/CHOICE [id number] 2020 PLUS/OPTIONS PPO 00:00:00 [facility]PO - [id number] 2020 GENERIC PAYOR 00:00:00 OPEN ACCESS PLUS [id number] 2016 2018 - CIGNA 00:00:00 00:00:00 [facility]\ [id number] ANNUITY INS - MULTIPLAN CVCP-CIGNA PPO [id number] 2016 00:00:00 CIGNA O-GLORIA [id number] 2017 PCP - GLORIA 00:00:00 [employer] MEDICARE A B [id number] 2018 00:00:00 [facility] POS [id number] 2018 SELECT CHOICE 00:00:00 COVID VACCINE [id number] 2020-07-03 ADMIN / TESTING 00:00:00 Problems This patient has no known problems. Allergies, Adverse Reactions, Alerts Allergy Allergy Status Severity Reaction(s) Onset Inactive Treating Comm ents Source Name Type Date Date Clinician NO KNOWN Allergy Active [facility] ALLERGIE S Social History Social Habit Start Date Stop Date Quantity Comments Source Sex Assigned At [birth year] [place] [facility] 00:00:00 00:00:00 [facility] Smoking Status Start Date Stop Date Source Unknown if ever smoked [facility] Medications This patient has no known medications. Procedures Procedure Date / Time Performed Performing Clinician [facility] e EXTERNAL PROVIDER 2021-06-19 06:01:00 Doctor Crystal, No [facility] RECORDS Name Medical Branch Encounters Start End Encounter Admission Attending Care Care Encounter Source Date/Time Date/Time Type Type Clinicians Facility Department ID 2021-06-19 2021-06-19 Orders Doctor SILVA [id number] [facility] 00:00:00 00:00:00 Only Unassigned, TESSA [id number] [facility] [place] [facility] [id number] [facility] 009 Branch 2021-04-22 2021-04-23 Outpatient [facility] [id number] [place] 00:00:00 00:00:00 RASHAWN [facility] 2021-04-08 2021-04-08 Outpatient [facility] [id number] [address] [place] [id number] 00:00:00 00:00:00 RASHAWN [address] 2021-03-18 2021-03-18 Outpatient MIMI, [facility] [id number] [address] [place] 00:00:00 00:00:00 RASHAWN [address] 2021-03-08 2021-03-08 Outpatient TIFFANIE TA [facility] [id number] [facility] 14:05:43 15:07:33 [facility] 2021-02-21 2021-02-21 Outpatient TIFFANIE CORREIA [facility] [id number] [facility] 13:29:48 15:55:01 KIMO Maris [facility]in [facility] 2021-02-21 2021-02-21 Outpatient TIFFANIE LINDSAY [facility] [id number] [facility] 10:32:52 13:09:12 LES [facility] 2021-02-11 2021-02-11 Outpatient MIMI, [facility] [id number] [address] [place] 00:00:00 00:00:00 RASHAWN [address] 2021-02-05 2021-02-05 Outpatient OMONIYI, [facility] [id number] [place] 00:00:00 00:00:00 MINNA Douglas [facility] 2020-12-12 2020-12-12 Outpatient TIFFANIE TA [facility] [id number] [facility] 14:19:01 15:17:03 PATTI [facility] 2020-11-21 2020-11-21 Outpatient ZEPEDA, [facility] [id number] [address] [place] 00:00:00 00:00:00 RIVER [address] 2020-10-25 2020-10-27 Outpatient EDWIN, [facility] [id number] [place] 00:00:00 00:00:00 CARITO [address] 2020-10-25 2020-10-25 Outpatient TIFFANIE LINDSAY [facility] [id number] [facility] 16:24:09 16:50:02 [facility]ES [facility] 2020-10-24 2020-10-24 Outpatient TIFFANIE TA [facility] [id number] [facility] 14:12:44 16:43:06 PATTI [facility] 2020-10-24 2020-10-24 Outpatient TIFFANIE WEATHERS [facility] [id number] [facility] 13:04:37 14:12:29 VALE Thang e of Medicin e 2020-10-22 2020-10-22 Outpatient MIMI, [facility] [id number] [place] 00:00:00 00:00:00 RASHAWN 521 Method i 2020-10-16 2020-10-16 Outpatient MIMI, [facility] [id number] [place] 00:00:00 00:00:00 RASHAWN [address] 2020-09-18 2020-09-29 Inpatient VALDEZ, [facility] [id number] [place] 00:00:00 00:00:00 JUAN DIEGO [address] 2020-07-20 2020-07-20 Outpatient [facility] [id number] [facility] 00:00:00 00:00:00 2020-07-03 2020-07-03 Outpatient [facility] [id number] [facility] 00:00:00 00:00:00 2020-05-29 2020-06-06 Inpatient STEVEN, [facility] [id number] [address] [place] 00:00:00 00:00:00 THNA 726 Method i 2020-05-22 2020-05-25 Outpatient SOURAV, [place] [id number] [place] 00:00:00 00:00:00 AMARILYS 803 Method i 2020-02-14 2020-02-14 Outpatient JESSICA, [facility] [id number] [address] [place] 00:00:00 00:00:00 ALYCIA 431 Method i 2019-08-12 2019-08-12 Outpatient [facility] [id number] [place] 00:00:00 00:00:00 Health 2019-08-12 2019-08-12 Outpatient [facility] [id number] [place] 00:00:00 00:00:00 Health 2019-08-11 2019-08-11 Outpatient [facility] [id number] [place] 00:00:00 00:00:00 Health 2019-08-08 2019-08-08 Outpatient [facility] [id number] [place] 00:00:00 00:00:00 Health 2019-07-15 2019-07-15 Outpatient [facility] [id number] [place] 00:00:00 00:00:00 [facility] 2019-07-15 2019-07-15 Outpatient [facility] [id number] [place] 00:00:00 00:00:00 [facility] 2019-07-08 2019-07-08 Outpatient [facility] [id number] [place] 00:00:00 00:00:00 [facility] 2019-05-20 2019-05-20 Outpatient [facility] [id number] [place] 00:00:00 00:00:00 [facility] 2019-05-06 2019-05-06 Outpatient [facility] [id number] [place] 00:00:00 00:00:00 [facility] 2019-03-10 2019-03-10 Outpatient [facility] [id number] [place] 15:33:03 15:33:03 [facility] 2019-03-10 2019-03-10 Outpatient [facility] [id number] [place] 12:58:19 12:58:19 [facility] 2019-03-10 2019-03-10 Outpatient [facility] [id number] [place] 00:00:00 00:00:00 [facility] 2019-03-08 2019-03-08 Outpatient [facility] [id number] [place] 00:00:00 00:00:00 [facility] 2019-02-24 2019-02-24 Outpatient [facility] [id number] [place] 00:00:00 00:00:00 [facility] 2019-01-24 2019-01-24 Outpatient [facility] [id number] [place] 10:58:28 10:58:28 [facility] 2019-01-24 2019-01-24 Outpatient [facility] [id number] [place] 00:00:00 00:00:00 [facility] 2019-01-17 2019-01-17 Outpatient [facility] [id number] [place] 15:33:34 15:33:34 [facility] 2019-01-17 2019-01-17 Outpatient [facility] [id number] [place] 00:00:00 00:00:00 [facility] 2019-01-13 2019-01-13 Outpatient [facility] [id number] [place] 00:00:00 00:00:00 [facility] 2018-12-29 2018-12-29 Outpatient [facility] [id number] [place] 00:00:00 00:00:00 [facility] 2018-12-28 2018-12-28 Outpatient [facility] [id number] [place] 00:00:00 00:00:00 [facility] 2018-12-27 2018-12-27 Outpatient [facility] [id number] [place] 08:38:55 08:38:55 Health 2018-09-13 2018-09-13 Outpatient [facility] [id number] [place] 00:00:00 00:00:00 Health 2018-08-30 2018-08-30 Outpatient [facility] [id number] [place] 10:20:14 10:20:14 Health 2018-08-23 2018-08-23 Outpatient [facility] [id number] [place] 15:52:24 15:52:24 Health 2018-08-13 2018-08-13 Outpatient [facility] [id number] [place] 13:43:29 13:43:29 Health 2018-08-12 2018-08-12 Outpatient [facility] [id number] [place] 08:41:21 08:41:21 Health 2018-08-12 2018-08-12 Outpatient [facility] [id number] [place] 00:05:30 00:05:30 [facility] 2018-08-12 2018-08-12 Outpatient [facility] [id number] [place] 00:00:00 00:00:00 [facility] 2018-08-12 2018-08-12 Outpatient [facility] [id number] [place] 00:00:00 00:00:00 Health Results Test Description Test Time Test Comments Results Result Comments Source SARS-CoV-2 (COVID-19) RNA [Presence] in Respiratory sp ecimen by 2020-10-26 02:07:30 MAITE with probe detection Test Item Value Reference Range Interpretation Comme nts SARS-CoV-2 (COVID-19) RNA [Presence] in Respiratory Not detected No t-Detected specimen by MAITE with probe detection (test code = 19894-5) Whether patient is employed in a healthcare setting (test code = 12670-6) Whether the patient has symptoms related to condition of interest (test code = 34260-8) Patient was hospitalized because of this condition (test code = 22134-9) Whether the patient was admitted to intensive care unit (ICU) for condition of interest (test code = 17360-8) Whether patient resides in a congregate care setting (test code = 18804-5) SARS-CoV-2 (COVID-19) RNA [Presence] in Respiratory specimen by MAITE with probe [id number] 01:54:02 Test Item Value Reference Range Interpretation Comments SARS-CoV-2 (COVID-19) RNA Not detected Not-Detected [Presence] in Respiratory specimen by MAITE with probe detection (test code = 85450-8) Whether patient is employed in a healthcare setting (test code = 15800-3) Whether the patient has symptoms related to condition of interest (test code = 96451-3) Patient was hospitalized because of this condition (test code = 19645-8) Whether the patient was admitted to intensive care unit (ICU) for condition of interest (test code = 01337-3) Whether patient resides in a congregate care setting (test code = 24479-7) SARS-CoV-2 (COVID-19) RNA [Presence] in Respiratory specimen by MAITE with probe [id number] 05:34:52 Test Item Value Reference Range Interpretation Comments SARS-CoV-2 (COVID-19) RNA Not detected Not-Detected [Presence] in Respiratory specimen by MAITE with probe detection (test code = 25002-8) SARS-CoV-2 (COVID-19) RNA [Presence] in Respiratory specimen by MAITE with probe [id number] 06:49:42 Test Item Value Reference Range Interpretation Comments SARS-CoV-2 (COVID-19) RNA Not detected Not-Detected [Presence] in Respiratory specimen by MAITE with probe detection (test code = 84967-0) URINE [id number] 13:53:00 Test Item Value Reference Range Interpretation [...] code = 47) >100,000 col/mL skin floraURINE [id number] 11:03:00 Test Item Value Reference Range Interpretation Comments CULTURE (BEAKER) (test A 30-39 ,000 col/mL Trudy code = 1095) glabrata CT, CHEST, WITHOUT [id number] 15:11:00FINAL REPORT INDICATION: History of lung nodule. [...] structures unremarkable. IMPRESSION: No pulmonarynodule.Borderline cardiomegaly. Signed: Andrea Mclean MDReport Verified Date/Time: 2018 15:11:39 Reading Location: [address] Radiology Reading Room URINE [id number] 11:13:00 Test Item Value Reference Range Interpretation [...] Microbiology Department for additional information.U/S, PELVIS, WITH [id number] 15:05:00Reason for Exam:->esrd; eval for renal txpFINAL REPORT INDICATION: End-stage renal disease. Evaluation before renal meyer splant. TECHNIQUE: Ultrasound exam was performed of [...] patent.Right internal iliac vein not visualized. Signed: Andrea Mclean Verified Date/Time: 08/25/2018 15:05:04 Reading Location: [address] Radiology Reading Room U/S, ABDOMINAL, [id number] 14:54:00Reason for Exam:->esrd; eval for renal txpFINAL [...] disease. Otherwise, unremarkable abdomen ultrasound exam. Signed: Andrea Mclean Verified Date/Time: 08/25/2018 14:54:42 ReadingLocation: [address] Radiology Reading Room URINALYSIS W/ [id number] 11:37:00 Test Item Value Reference Range Interpretation [...] 1581) SOURCE(BEAKER) (test code = 2795) HEMOGLOBIN [id number] 11:28:00 Test Item Value Reference Range Interpretation Comments HEMOGLOBIN A1C (BEAKER) (test code = 8.1 % 4.3-6.1 H 368) [id number] 11:13:00 Test Item Value Reference Range Interpretation Comments RPR SCREEN (BEAKER) (test code = Nonreactive Nonreactive 420) URIC [id number] 10:56:00 Test Item Value Reference Range Interpretation Comments URIC ACID (BEAKER) (test code = 10.3 mg/dL 2.6-7.2 H 773) PTH, [id number] 10:28:00 Test Item Value Reference Range Interpretation Comments PARATHYROID HORMONE INTACT 617.7 pg/mL 8.5-72.5 H (BEAKER) (test code = 577) COMPREHENSIVE METABOLIC [id number] 10:16:00 Test Item Value Reference Range Interpretation [...] S NOT APPLICABLE FOR DIALYSIS PATIEN TS. [id number] 10:14:00 Test Item Value Reference Range Interpretation Comments PHOSPHORUS (BEAKER) (test code = 5.9 mg/dL 2.3-4.7 H 604) LIPID [id number] 10:14:00 Test Item Value Reference Range Interpretation [...] 338 U/L 125-220 H code = 635) [id number] 10:00:00 Test Item Value Reference Range Interpretation [...] patients with mechanical heart valves.VARICELLA ZOSTER ANTIBODY, [id number] 11:58:00 Test Item Value Reference Range Interpretation Comments VARICELLA ZOSTER IGG (AL) (BEAKER) 4.9 (test code = 3197) VARICELLA ZOSTER RESULT INTERPRETATIONS: <=0.8 Al Nonreactive: Presumed non-immune to VZV 0.9-1.0 Al Equivocal >=1.1 Al Reactive: Presumed immune to VZVCYTOMEGALOVIRUS ANTIBODY, [id number] 11:55:00 Test Item Value Reference Range Interpretation Comments CYTOMEGALOVIRUS, IGG (BEAKER) Positive Negative, Equivocal A (test code = 3429) CMV IgG Result Interpretation: </= 0.8 Al Negative 0.9-1.0 Al Equivocal >/=1.1 Al PositiveCYTOMEGALOVIRUS ANTIBODY, [id number] 11:55:00 Test Item Value Reference Range Interpretation Comments CYTOMEGALOVIRUS IGM ANTIBODY Negative Negative, Equivocal (BEAKER) (test code = 3437) CMV IgM Result Interpretation: </= 0.8 Al Negative 0.9-1.0 Al Equivocal >/= 1.1 Al PositiveEBV ANTIBODY, [id number] 11:55:00 Test Item Value Reference Range Interpretation [...] Negative 0.9-1.0 Al Equivocal >/= 1.1 Al [id number] 17:55:00 Test Item Value Reference Range Interpretation Comments RPR SCREEN (BEAKER) (test code = Nonreactive Nonreactive 420) HEPATITIS B SURFACE [id number] 15:38:00 Test Item Value Reference Range Interpretation Comments HEPATITIS B SURFACE ANTIBODY < mIU/mL <8.0 (BEAKER) (test code = 647) HEPATITIS B SURFACE [id number] 15:35:00 Test Item Value Reference Range Interpretation Comments HEPATITIS B SURFACE ANTIGEN (2) Nonreactive Nonreactive (BEAKER) (test code = 2585) HEPATITIS B CORE ANTIBODY, [id number] 15:35:00 Test Item Value Reference Range Interpretation Comments HEPATITIS B CORE IGM ANTIBODY Nonreactive Nonreactive (BEAKER) (test code = 645) HEPATITIS C [id number] 15:35:00 Test Item Value Reference Range Interpretation Comments HEPATITIS C ANTIBODY (BEAKER) Nonreactive Nonreactive (test code = 367) HIV-1 ANTIGEN WITH HIV-1/2 [id number] 15:35:00 Test Item Value Reference Range Interpretation Comments HIV-1 ANTIGEN WITH HIV 1\T\2 Nonreactive Nonreactive ANTIBODY (2) (BEAKER) (test code = 2586) RAD, CHEST, 2 [id number] 14:56:00Reason for Exam:->esrd; eval for renal txpFINAL REPORT TECHNIQUE: Frontal and lateral chest radiographs dated 04/27/2018. CLINICAL HISTORY: ESRD COMPARISON STUDY: Chest radiograph dated 02/17/2018 FINDINGS: Lungs are clear. No pleural effusion or pneumothorax. Cardiomediastinal silhouette is normal in size. No pulmonary edema. No bone or soft tissue abnormalities are seen. IMPRESSION: Clear lungs. Signed: Eliazar Abelepvanessa Verified Date/Time: 04/27/2018 14:56:34 Reading Location: [facility] Radiology Reading Room [id number] 13:10:00 Test Item Value Reference Range Interpretation Comments FERRITIN (BEAKER) (test code = 361) 48 ng/mL 5-275 [id number] 12:45:00 Test Item Value Reference Range Interpretation Comments FERRITIN (BEAKER) (test code = 361) 53 ng/mL 5-275 POCT-GLUCOSE [id number] 08:17:00 Test Item Value Reference Range Interpretation Comments POC-GLUCOSE METER 135 mg/dL 70-110 H TESTED AT [facility] 6720 (BEAKER) (test code = DAWOOD [place] [facility] 1538) [address] BASIC METABOLIC [id number] 06:02:00 Test Item Value Reference Range Interpretation [...] S NOT APPLICABLE FOR DIALYSIS PATIEN TS. [id number] 05:40:00 Test Item Value Reference Range Interpretation Comments PHOSPHORUS (BEAKER) (test code = 6.1 mg/dL 2.3-4.7 H 604) [id number] 05:40:00 Test Item Value Reference Range Interpretation Comments MAGNESIUM (BEAKER) (test code = 2.0 mg/dL 1.6-2.6 627) POCT-GLUCOSE [id number] 21:26:00 Test Item Value Reference Range Interpretation Comments POC-GLUCOSE METER 196 mg/dL 70-110 H TESTED AT [place] [address] ([facility]) (test code = [facility] 1538) [address] POCT-GLUCOSE [id number] 18:20:00 Test Item Value Reference Range Interpretation Comments POC-GLUCOSE METER 240 mg/dL 70-110 H TESTED AT [place] [address] ([facility]) (test code = [facility] 1538) [address] POCT-GLUCOSE [id number] 13:43:00 Test Item Value Reference Range Interpretation Comments POC-GLUCOSE METER 162 mg/dL 70-110 H TESTED AT [place] [address] ([facility]) (test code = [facility] 1538) [address] BASIC METABOLIC [id number] 09:56:00 Test Item Value Reference Range Interpretation [...] S NOT APPLICABLE FOR DIALYSIS PATIEN TS. [id number] 09:45:00 Test Item Value Reference Range Interpretation Comments PHOSPHORUS (BEAKER) (test code = 6.0 mg/dL 2.3-4.7 H 604) [id number] 09:45:00 Test Item Value Reference Range Interpretation Comments MAGNESIUM (BEAKER) (test code = 2.5 mg/dL 1.6-2.6 627) CREATINE KINASE (CK)2018-02-20 09:45:00 Test Item Value Reference Range Interpretation Comments CREATINE KINASE TOTAL (BEAKER) (test 281 U/L 29-200 H code = 380) POCT-GLUCOSE [id number] 09:14:00 Test Item Value Reference Range Interpretation Comments POC-GLUCOSE METER 103 mg/dL 70-110 TESTED AT [facility] 6720 (BEAKER) (test code = [place] 1534) [address] CBC W/PLT COUNT & AUTO [id number] 08:03:00 Test Item Value Reference Range Interpretation [...] IMMATURE GRANULOCYTES-RELATIVE 2 % 0-1 H PERCENT (BEAKER) (test code = 2801) POCT-GLUCOSE [id number] 22:12:00 Test Item Value Reference Range Interpretation Comments POC-GLUCOSE METER 280 mg/dL 70-110 H TESTED AT [place] [address] ([facility]) (test code = [place] 1538) [address] POCT-GLUCOSE [id number] 11:46:00 Test Item Value Reference Range Interpretation Comments POC-GLUCOSE METER 92 mg/dL 70-110 TESTED AT [place] [address] ([facility]) (test code = [place] [address] 1538) POCT-GLUCOSE [id number] 07:43:00 Test Item Value Reference Range Interpretation Comments POC-GLUCOSE METER 199 mg/dL 70-110 H TESTED AT [place] [address] (BEAKER) (test code = [place] 1538) [address] HEPATITIS B [id number] 07:13:00 Test Item Value Reference Range Interpretation Comments HEPATITIS B CORE TOTAL ANTIBODY Nonreactive Nonreactive (BEAKER) (test code = 497) HEPATITIS B SURFACE ANTIBODY < mIU/mL <8.0 (BEAKER) (test code = 647) HEPATITIS B SURFACE ANTIGEN (2) Nonreactive Nonreactive (BEAKER) (test code = 2585) IRON, TIBC, % SAT. (WITHOUT FERRITIN)2018-02-19 05:56:00 Test Item Value Reference Range Interpretation Comments IRON (BEAKER) (test code = 547) 42 ug/dL 40-160 TOTAL IRON BINDING CAPACITY 230 ug/dL 250-450 L (BEAKER) (test code = 769) IRON % SATURATION (2) (BEAKER) 18 % 20-55 L (test code = 2590) CALCIUM, [id number] 05:18:00 Test Item Value Reference Range Interpretation Comments CALCIUM IONIZED (BEAKER) (test 0.93 mmol/L 1.12-1.27 L code = 698) PH, BLOOD (BEAKER) (test code = 7.26 1810) BASIC METABOLIC [id number] 05:13:00 Test Item Value Reference Range Interpretation [...] S NOT APPLICABLE FOR DIALYSIS PATIEN TS. [id number] 05:10:00 Test Item Value Reference Range Interpretation Comments PHOSPHORUS (BEAKER) (test code = 6.0 mg/dL 2.3-4.7 H 604) [id number] 05:10:00 Test Item Value Reference Range Interpretation Comments MAGNESIUM (BEAKER) (test code = 1.5 mg/dL 1.6-2.6 L 627) HEPATIC FUNCTION [id number] 05:10:00 Test Item Value Reference Range Interpretation [...] 6-55 347) CBC W/PLT COUNT & AUTO [id number] 04:40:00 Test Item Value Reference Range Interpretation [...] NEUTROPHILS ABSOLUTE COUNT 3.85 K/ L 1.56-6.13 (BEAKER) (test code = 670) LYMPHOCYTES ABSOLUTE COUNT 2.22 K/ L 1.18-3.74 (BEAKER) (test code = 414) MONOCYTES ABSOLUTE COUNT (BEAKER) 0.69 K/ L 0.24-0.36 H (test code = 415) EOSINOPHILS ABSOLUTE COUNT 0.40 K/ L 0.04-0.36 H (BEAKER) (test code = 416) BASOPHILS ABSOLUTE COUNT (BEAKER) 0.04 K/ L 0.01-0.08 (test code = 417) IMMATURE GRANULOCYTES-RELATIVE 1 % 0-1 PERCENT (BEAKER) (test code = 2801) POCT-GLUCOSE [id number] 04:18:00 Test Item Value Reference Range Interpretation Comments POC-GLUCOSE METER 156 mg/dL 70-110 H TESTED AT [place] [address] ([facility]) (test code = DAWO[address] Sinclair [facility] 1538) [address] POCT-GLUCOSE [id number] 04:18:00 Test Item Value Reference Range Interpretation Comments POC-GLUCOSE METER 57 mg/dL 70-110 L Joshuaied Dottie Salinas MD/TESTED AT ([facility]) (test code = [place] [address] [place] 1538) [facility] 7703 0 POCT-GLUCOSE [id number] 21:19:00 Test Item Value Reference Range Interpretation Comments POC-GLUCOSE METER 177 mg/dL 70-110 H TESTED AT [place] [address] ([facility]) (test code = DAWO[address] Sinclair [facility] 1538) [address] POCT-GLUCOSE [id number] 17:21:00 Test Item Value Reference Range Interpretation Comments POC-GLUCOSE METER 86 mg/dL 70-110 TESTED AT [facility] 6720 ([facility]) (test code = [place] [address] 1538) POCT-GLUCOSE [id number] 12:13:00 Test Item Value Reference Range Interpretation Comments POC-GLUCOSE METER 125 mg/dL 70-110 H TESTED AT [facility] 6720 ([facility]) (test code = DAWO[place] Sinclair [facility] 1538) [address] CT, CHEST, WITHOUT [id number] 10:59:00NO CONTRASTFINAL REPORT HISTORY: SOB, pulmonary edema [...] process. Close CT follow-up is advised. Signed: Delia Wheat Verified Date/Time: 02/18/2018 10:59:43 Reading Location: [facility] B1 C013Y CT Body ReadingRoom HEMOGLOBIN A1C 2018-02-18 09:40:00 Test Item Value Reference Range Interpretation Comments HEMOGLOBIN A1C (BEAKER) (test code = 7.8 % 4.3-6.1 H 368) POCT-GLUCOSE [id number] 08:33:00 Test Item Value Reference Range Interpretation Comments POC-GLUCOSE METER 94 mg/dL 70-110 TESTED AT [facility] 6720 (BEAKER) (test code = DAWOOD Sinclair [facility] [address] 1538) BASIC METABOLIC [id number] 05:44:00 Test Item Value Reference Range Interpretation [...] PATIEN TS. CBC W/PLT COUNT & AUTO [id number] 05:19:00 Test Item Value Reference Range Interpretation [...] 0-1 PERCENT (BEAKER) (test code = 2801) [id number] 00:31:00 Test Item Value Reference Range Interpretation Comments POTASSIUM (BEAKER) (test code = 4.2 meq/L 3.5-5.1 379) [id number] 00:31:00 Test Item Value Reference Range Interpretation Comments PHOSPHORUS (BEAKER) (test code = 5.7 mg/dL 2.3-4.7 H 604) POCT-GLUCOSE [id number] 21:26:00 Test Item Value Reference Range Interpretation Comments POC-GLUCOSE METER 165 mg/dL 70-110 H TESTED AT [place] [address] (BEAKER) (test code = DAWOOD Sinclair [facility] 1538) [address] RAD, ABDOMEN/KUB, 1 VIEW [id number] 17:29:00Reason for exam:->s/p pd catheter palcement. no [...] MDReport Verified Date/Time: 02/17/2018 17:29:52 Reading Location: [facility] Reading Room POCT-GLUCOSE [id number] 17:21:00 Test Item Value Reference Range Interpretation Comments POC-GLUCOSE METER 123 mg/dL 70-110 H TESTED AT [facility] 6720 (BEAKER) (test code = [facility] Dottie [facility] 1538) [address] URINALYSIS W/ REFLEX URINE [id number] 14:36:00 Test Item Value Reference Range Interpretation [...] = Moderate 1585) SOURCE(BEAKER) (test code = 2273) B-TYPE NATRIURETIC FACTOR (BNP)2018-02-17 14:29:00 Test Item Value Reference Range Interpretation Comments B-TYPE NATRIURETIC PEPTIDE (BEAKER) 378 pg/mL 0-100 H (test code = 700) POCT-GLUCOSE [id number] 12:30:00 Test Item Value Reference Range Interpretation Comments POC-GLUCOSE METER 202 mg/dL 70-110 H TESTED AT [facility] 6720 (BEAKER) (test code = DAWOOD Sinclair [facility] 1538) [address] BASIC METABOLIC [id number] 12:30:00 Test Item Value Reference Range Interpretation [...] PATIEN TS. CBC W/PLT COUNT & AUTO [id number] 12:09:00 Test Item Value Reference Range Interpretation [...] 0-1 PERCENT (BEAKER) (test code = 2801) RAD, CHEST, 1 VIEW, NON [id number] 11:55:00Reason for exam:->Persistant CoughShould this be performed [...] Renae Verified Date/Time: 02/17/2018 11:55:27 Reading Location: [facility] Radiology Reading Room POCT-GLUCOSE METER 2018-02-17 08:08:00 Test Item Value Reference Range Interpretation Comments POC-GLUCOSE METER 101 mg/dL 70-110 TESTED AT [facility] 6720 ([facility]) (test code = [place] 1538) [address] POCT-GLUCOSE [id number] 06:49:00 Test Item Value Reference Range Interpretation Comments POC-GLUCOSE METER 107 mg/dL 70-110 TESTED AT [facility] 6720 ([facility]) (test code = DAWOOD [place] 1538) [address] POCT-GLUCOSE [id number] 23:06:00 Test Item Value Reference Range Interpretation Comments POC-GLUCOSE METER 197 mg/dL 70-110 H TESTED AT [place] [id number] ([facility]) (test code = DAWOOD Sinclair [facility] 1538) [address] POCT-GLUCOSE [id number] 19:59:00 Test Item Value Reference Range Interpretation Comments POC-GLUCOSE METER 196 mg/dL 70-110 H TESTED AT [place] [address] ([facility]) (test code = DAWOOD Sinclair [place] 1538) [address] POCT-GLUCOSE [id number] 18:17:00 Test Item Value Reference Range Interpretation Comments POC-GLUCOSE METER 150 mg/dL 70-110 H TESTED AT [place] [address] ([facility]) (test code = DAWOOD Sinclair [facility] 1538) [address] POCT-GLUCOSE [id number] 13:12:00 Test Item Value Reference Range Interpretation Comments POC-GLUCOSE METER 96 mg/dL 70-110 TESTED AT [place] [address] ([facility]) (test code = DAWOOD Sinclair [facility] [address] 1538) HGB/HCT (H&H) - STAT [id number] 12:01:00 Test Item Value Reference Range Interpretation Comments HEMOGLOBIN (BEAKER) (test code = 8.9 g/dL 12.0-15.0 L 410) HEMATOCRIT (BEAKER) (test code = 26.0 % 36.0-45.0 L 411) GLUCOSE-STAT [id number] 11:57:00 Test Item Value Reference Range Interpretation Comments GLUCOSE RANDOM (AKER) (test code = 78 mg/dL 70-110 652) POTASSIUM-STAT [id number] 11:57:00 Test Item Value Reference Range Interpretation Comments POTASSIUM (BEAKER) (test code = 5.5 meq/L 3.6-5.5 379) POCT-GLUCOSE [id number] 11:15:00 Test Item Value Reference Range Interpretation Comments POC-GLUCOSE METER 64 mg/dL 70-110 L Joshuaied R Rita SHAH/TESTED AT ([facility]) (test code = [address] 1538) [facility] 7703 0 MRI THORACIC WOCLINICAL [...] Posterior elements are intact. No significant facet arthrosis.Vertebral body heights are well maintained. There are no fractures or destructive osseous lesions. There is no pathologic bone marrow signal intensity. There are no paraspinous or prevertebral soft tissue masses. There are no pleural effusions.The thoracic spinal cord is normal without intramedullary, intradural or extradural lesion. There is no pathologic signal intensity in the thoracic spinal cord. Conus medullaris and cauda equina are normal. Conus terminates at T12-L1.CHEST XR 2 VIEWSCLINICAL INDICATION: R07.9 Chest pain, unspecifiedTECHNIQUE: PA and lateral chest.FINDINGS: Comparis on study: noneThe lungs are clear. The costophrenic sulci are sharp.The heart and lorelei are unremarkable. Vascularity is normal. The regional skeleton is intact.IMPRESSION:No evidence of acute cardiopulmonary disease.
--- NOTE | 2021-07-26 09:45 | EDPHYS ---
Physician Documentation [facility] Name: Nina Kelley Age: 45 yrs Sex: Female : 1975 Arrival Date: 07/26/2021 Time: 09:12 Bed 3 Private MD: ED Physician John Pereyra HPI: 07/26 09:44 This 45 yrs old Female presents to ER via Unassigned with complaints of CPR. jr8 09:44 Preceding the arrest, the patient collapsed. The arrest occurred at home. Pre-hospital jr8 course: The arrest was witnessed by family. EMS care prior to arrival: initiation of ACLS, peripheral IV, IO inserted . intubation Dwaine Tube . oxygen, by BVM to assist ventilations. EMS on scene time was unknown. Time elapsed prior to ACLS is unknown. Other Total time worked prior to arriving to hospital was 20 minutes. ACLS details: Initial rhythm was asystole. The presenting rhythm is asystole. Medications given by EMS prior to arrival - Epinephrine IV x 4 doses, Defibrillation was not performed, Response to therapy: continued arrest. The patient has not experienced similar symptoms in the past. It is unknown whether or not the patient has recently seen a physician. Family stated that they heard patient yell. Went to see what was going on and found her prone on the floor with agonal respirations . Historical: - PMHx: 10:02 Diabetes - IDDM; Dialysis; legally blind; neuropathy; RETINAL DETACHMENT; ss - Social history:: Smoking status: unknown. ROS: 09:44 Unable to obtain ROS due to CPR. jr8 Exam: 09:44 Head/Face: Normocephalic, atraumatic. jr8 09:44 ENT: Mouth: Tongue: is normal, Posterior pharynx: Airway: no evidence of obstruction, patent, swelling, is not appreciated. 09:44 Cardiovascular: Pulses: not palpable, Heart sounds: absent, Dialysis shunt: in the chest. 09:44 Respiratory: ventilated with BVM rate of 12 bpm. Some crackles noted bilaterally . 09:44 Abdomen/GI: Inspection: obese Palpation: soft, in all quadrants. 09:44 Skin: Appearance: Color: dusky, Temperature: cool. Vital Signs: 09:11 Pulse 0; Resp 16 A; ss 09:15 Temp 97.0(TE); ss 09:20 BP 57 / 25; Pulse 123; ss Ramesh Coma Score: 09:44 Eye Response: none(1). Verbal Response: none(1). Motor Response: none(1). Modifying jr8 Factors: Intubated. Total: 3. Procedures: 09:44 Intubation: Intubated orally using # 4 Brady blade with 7.5 mm ETT. was successful jr8 on first attempt. Ventilated with Ambu bag. Tube secured with ETT lewis at center of mouth measured 22 cm at lip. Placement verified by CO2 detector with (+) color change, auscultating bilateral breath sounds. MDM: 09:42 Patient medically screened. jr8 09:42 Data reviewed: vital signs, nurses notes. Counseling: I had a detailed discussion with jr8 the patient and/or guardian regarding: the historical points, exam findings, and any diagnostic results supporting the discharge/admit diagnosis. ED course: CPR with ACLS measures continued after EMS arrived. Patient intubated successfully and was given ACLS meds along with being able to shock her once in ventricular fibrillation. Despite advanced measures we were still not able to achieve ROSC. This was discussed with family which is aware at this time and is in treatment room with PD and spiritual counselor . 07/26 11:14 Order name: glucometer results - FOR PT WITH NO ID Administered Medications: 11:23 Discontinued: Dopamine drip 5 mcg/kg/min - (DOPamine 400 mg, D5W 250 ml) IV at calculated rate continuous; Titrate to keep systolic blood pressure greater than 90mmHg 09:12 Drug: EPINEPHrine 0.1mg/mL 1:10,000 1 mg {Note: L IO.} Route: IVP; Site: Other; 09:30 Follow up: Response: No adverse reaction ss 09:15 Drug: Sodium Bicarbonate 1 amp {Note: L IO.} Route: IVP; Site: Other; ss 09:30 Follow up: Response: No adverse reaction ss 09:16 Drug: Calcium Chloride 1 grams {Note: L IO.} Route: IVP; Site: Other; ss 09:22 Follow up: Response: No adverse reaction ss 09:17 Drug: EPINEPHrine 0.1mg/mL 1:10,000 1 mg {Note: L IO.} Route: IVP; Site: Other; ss 09:30 Follow up: Response: No adverse reaction ss 09:20 Drug: Dopamine drip 5 mcg/kg/min - (DOPamine 400 mg, D5W 250 ml) {Note: L IO.} Route: ss IV; Rate: calculated rate; Site: Other; 09:26 Drug: EPINEPHrine 0.1mg/mL 1:10,000 1 mg {Note: L IO.} Route: IVP; Site: Other; ss 09:29 Follow up: fine Vfib ss 09:26 Drug: NS 0.9% 1000 ml Route: IV; Rate: 1000 ml; Site: Other; ss 09:34 Follow up: IV Status: IV discontinued ss 09:30 Drug: EPINEPHrine 0.1mg/mL 1:10,000 1 mg {Note: L IO.} Route: IVP; Site: Other; ss 09:35 Follow up: Response: No change in condition ss Disposition: 09:42 . jr8 Disposition Summary: 07/26/21 09:44 Patient Location: Home jr8 Pronouncing Physician: Alo Lucas Time of : 09:33 07/26/2021 jr8 Diagnosis - Cardiac arrest, cause unspecified jr8 Signatures: Dispatcher [employer] Azalia Lopez RN RN Alo Lucas PA PA jr8
--- NOTE | 2021-07-26 09:45 | ER ---
Nurse's Notes [facility] Name: Nina Kelley Age: 45 yrs Sex: Female : 1975 Arrival Date: 07/26/2021 Time: 09:12 Bed 3 Private MD: Diagnosis: Cardiac arrest, cause unspecified Presentation: 07/26 09:08 Chief complaint: EMS states: EMS arrival: Pt found unresponsive by family in bathroom ss after hearing a scream. Upon EMS arrival, patient was noted to be unresponsive, snoring respirations, but pulse was palpable. Upon getting patient into the ambulance, after additional pulse check, patient became pulseless. CPR began at this time (0844). Epi given x 4. Asystole during duration of transportation to hospital. L tibia IO established. BGL reading "high". Intubated with Dwaine Tube # 3. Compressions VIA LUIS. Care prior to arrival: CPR. Compressions began at 08:44. 09:08 Method Of Arrival: EMS: [facility] ss 09:08 Acuity: ADELITA 1 ss 09:11 Onset of symptoms was July 26, 2021 at 08:28. Transition of care: patient was not ss received from another setting of care. 09:11 Coronavirus screen: Client denies travel out of the [place] in the last 14 days. Ebola ss Screen: Patient denies exposure to infectious person. Patient denies travel to an Ebola-affected area in the 21 days before illness onset. Initial Sepsis Screen: Does the patient have a suspected source of infection? No. Patient's initial sepsis screen is negative. 09:11 Initial Sepsis Screen: Does the patient meet any 2 criteria? No. Patient's initial ss sepsis screen is negative. 09:33 Risk Assessment: Do you want to hurt yourself or someone else? Other: N/A. ss Historical: - PMHx: 10:02 Diabetes - IDDM; Dialysis; legally blind; neuropathy; RETINAL DETACHMENT; ss - Social history:: Smoking status: unknown. Screenin:11 Abuse screen: No obvious signs of abuse/ neglect. ss 09:33 Tuberculosis screening: No symptoms or risk factors identified. ss Assessment: 09:08 Reassessment: EMS arrival to ED BAY, states there has not yet been a pulse since ss patient became pulseless at home. HX of DM and HD. Family on scene reported to EMS that patient had been vomiting coffee ground emesis, and was sitting on toilet complaining of low back pain when she let out a scream and suddenly became unconscious. 911 was called at this time by family. AutoPulse machine "LUIS 3" in place giving automatic compressions. 09:11 CPR assessment: unresponsive, no respiratory effort, Ambu ventilation. Cardiac rhythm ss is asystole. 09:11 Reassessment: Pulse check: No pulse. PEA, CPR resumed. ss 09:13 Reassessment: Dwaine Tube removed. Pt intubated at this time by MARQUES Phillips. Pulse ss check: asystole. No pulse. Compressions resumed. 09:16 Reassessment: Glucose check: reading "high". Pulse check. No pulse. CPR resumed. ss 09:18 Reassessment: Pulse check: PEA. No pulse, CPR resumed. ss 09:20 Reassessment: Pulse check: + pulse (weak/ thready) HR 123 BP 57/25. MARQUES Martinez at bedside to assess cardiac activity. Dopamine began at this time. 09:25 Reassessment: Pulse check: Asystole, No pulse. LUIS removed and manual compressions ss began. 09:28 Reassessment: Pulse check, fine VFIB. *shocked* CPR resumed. ss 09:31 Reassessment: Pulse check: No pulse, asystole. MARQUES Prajapati using US machine again at this ss time to assess cardiac activity at bedside. 09:33 Reassessment: Pulse check: PEA. No pulse. TOD called at this time. Vital Signs: 09:11 Pulse 0; Resp 16 A; ss 09:15 Temp 97.0(TE); ss 09:20 BP 57 / 25; Pulse 123; ss [place] Coma Score: 09:44 Eye Response: none(1). Verbal Response: none(1). Motor Response: none(1). Modifying jr8 Factors: Intubated. Total: 3. ED Course: 09:12 Patient arrived in ED. jd3 09:13 Assisted provider with intubation using 7.5 mm ETT via oral route. ET tube secured at ss 23cm at the teeth. Set up intubation tray. Intubated by Alo MOHAN Placement verified by CO2 detector w/ + color change, auscultating bilateral breath sounds, Dwaine tube removed. 09:13 Inserted saline lock: 20 gauge in right hand, using aseptic technique. ss 09:33 Pt . IV remains in place for home. ss 09:35 Arm band placed on right wrist. ss 09:36 Police [place] [employer] notified to call [employer]/. eb 09:42 Alo Lucas PA is PHCP. jr8 09:42 John Pereyra MD is Attending Physician. jr8 09:44 Alo Lucas PA is Pronouncing Provider. jr8 09:58 Triage completed. ss Administered Medications: 11:23 Discontinued: Dopamine drip 5 mcg/kg/min - (DOPamine 400 mg, D5W 250 ml) IV at ss calculated rate continuous; Titrate to keep systolic blood pressure greater than 90mmHg 09:12 Drug: EPINEPHrine 0.1mg/mL 1:10,000 1 mg {Note: L IO.} Route: IVP; Site: Other; ss 09:30 Follow up: Response: No adverse reaction ss 09:15 Drug: Sodium Bicarbonate 1 amp {Note: L IO.} Route: IVP; Site: Other; ss 09:30 Follow up: Response: No adverse reaction ss 09:16 Drug: Calcium Chloride 1 grams {Note: L IO.} Route: IVP; Site: Other; ss 09:22 Follow up: Response: No adverse reaction ss 09:17 Drug: EPINEPHrine 0.1mg/mL 1:10,000 1 mg {Note: L IO.} Route: IVP; Site: Other; ss 09:30 Follow up: Response: No adverse reaction ss 09:20 Drug: Dopamine drip 5 mcg/kg/min - (DOPamine 400 mg, D5W 250 ml) {Note: L IO.} Route: ss IV; Rate: calculated rate; Site: Other; 09:26 Drug: EPINEPHrine 0.1mg/mL 1:10,000 1 mg {Note: L IO.} Route: IVP; Site: Other; ss 09:29 Follow up: fine Vfib ss 09:26 Drug: NS 0.9% 1000 ml Route: IV; Rate: 1000 ml; Site: Other; ss 09:34 Follow up: IV Status: IV discontinued ss 09:30 Drug: EPINEPHrine 0.1mg/mL 1:10,000 1 mg {Note: L IO.} Route: IVP; Site: Other; 09:35 Follow up: Response: No change in condition ss Intake: Outcome: 09:33 Outcome Patient ss 09:33 Patient : Time of 09:33 Pronounced by Alo MOHAN 09:33 Condition: ss 13:35 Patient left the ED. eb Signatures: Azalia Noble RN RN ss Roszak, Josh, PA PA jr8 Javid Jackson RN RN jd3 María Elena Wick eb Corrections: (The following items were deleted from the chart) 11:22 02:00 Dopamine drip 5 mcg/kg/min - (DOPamine 400 mg, D5W 250 ml) IV at calculated rate ss in Other ss 11:31 10:01 Patient : Time of 09:33 Pronounced by Alo MOHAN [facility]
[2021-07-26 13:56] VITALS: TEMP 97
[2021-07-26 13:57] VITALS: BP 57/25
== END 2021-07-26 13:35 | disposition expired ==
LOC: ER 09:11
PROC: 0BH17EZ Insertion of Endotracheal Airway into Trachea, Via Natural or Artificial Opening (ICD-10-PCS; principal; 2021-07-26)
PROC: 5A1935Z Respiratory Ventilation, Less than 24 Consecutive Hours (ICD-10-PCS; 2021-07-26)
DX: I46.9 Cardiac arrest, cause unspecified (principal); E11.9 Type 2 diabetes mellitus without complications; Z99.2 Dependence on renal dialysis
CPT/HCPCS: 31500; 36415; 82947; 92950; 96374; 96375; 99285